=== PATIENT | female | born 1970 | race Caucasian/White ===

== ENCOUNTER 2017-07-31 22:51 | Emergency (ER) | payer SELFPAY ==
[2017-07-31 23:55] LABS: Absolute Lymphocytes (CBC) 3.3 K/uL (0.7-4.9); Absolute Monocytes 0.6 K/uL (0.1-1.3); Absolute Neutrophil 3.6 K/uL (1.8-8.0); Basophils % 0.6 % (0-1.3); Eosinophils % 1.5 % (0-4.4); Hematocrit 41.7 % (36.0-45.0); MCH 32.4 pg (27.0-35.0); MCV 94.7 fL (80-100); MPV 9.4 fL (7.6-11.3); Monocytes % 7.5 % (3.3-12.3)
[2017-08-01 00:06] LABS: Bicarbonate 28 mEq/L (21-31); Glucose Level 297 mg/dL (65-120); Lipase 34 U/L (22-51); Potassium 3.9 mEq/L (3.6-5.0); Sodium Level 134 mEq/L (135-145)
[2017-08-01 00:12] LABS: ALT/SGPT 21 IU/L (10-60); AST/SGOT 15 IU/L (10-42); Albumin 3.8 g/dL (3.2-5.5); Alkaline Phosphatase 86 IU/L (42-121); Amylase Level 62 U/L (28-100); BUN Blood Urea Nitrogen 10 mg/dL (6-20); Bilirubin Direct 0.1 mg/dL (0-0.2); Bilirubin Total 0.5 mg/dL (0.3-1.2); Protein, Total 6.8 g/dL (6.0-8.3)
--- NOTE | 2017-08-01 00:17 | ER ---
Nurse's Notes [facility] Name: Yessica Martinez Age: 46 yrs Sex: Female : 1970 Arrival Date: 07/31/2017 Time: 22:55 Bed 25 Private MD: Diagnosis: Elevated blood glucose level Presentation: 07/31 23:15 Presenting complaint: Patient states: she is not feeling well checked her BGL and it bb was over 500 drank some water and it went down but felt off balance and tired with some numbness in left hand. Transition of care: patient was not received from another setting of care. Onset of symptoms was July 31, 2017. Care prior to arrival: None. 23:15 Method Of Arrival: Ambulatory bb 23:15 Acuity: BECCA 3 bb Triage Assessment: 23:30 General: Appears in no apparent distress. well nourished, Behavior is calm, cooperative.rk2 23:30 Pain:. Neuro: Level of Consciousness is alert, obeys commands, Oriented to. rk2 Respiratory: Airway is patent Respiratory effort is even, unlabored, Respiratory pattern is regular, symmetrical. Derm: Skin is pink, warm \T\ dry. 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 - Social history:: Smoking status: Patient uses tobacco products, smokes one pack cigarettes per day. Patient/guardian denies using alcohol, street drugs. - Family history:: not pertinent. Screenin:30 Abuse screen: Denies threats or abuse. rk2 23:30 Nutritional screening: No deficits noted. Tuberculosis screening: No symptoms or risk rk2 factors identified. Fall Risk None identified. Vital Signs: 23:18 BP 124 / 79; Pulse 84; Resp 18 S; Temp 98.4(O); Pulse Ox 97% on R/A; Weight 86.64 kg bb (R); Height 5 ft. 3 in. (160.02 cm) (R); Pain 0/10; 23:45 BP 110 / 95; Pulse 68; Resp 17; Pulse Ox 97% on R/A; rk2 08/01 00:39 BP 128 / 83; Pulse 62; Resp 17; Pulse Ox 98% on R/A; rk2 07/31 23:18 Body Mass Index 33.83 (86.64 kg, 160.02 cm) ED Course: 07/31 22:55 Patient arrived in ED. am2 23:00 Abhijit Diaz MD is Attending Physician. mi2 23:16 Triage completed. bb 23:18 Arm band placed on Patient placed in an exam room, on a stretcher, on pulse oximetry. bb Family accompanied patient. 23:21 Carlota Garcia, RN is Primary Nurse. rk2 23:30 Patient has correct armband on for positive identification. Bed in low position. Call rk2 light in reach. 23:43 Amylase, Serum Sent. rk2 08/01 00:40 No provider procedures requiring assistance completed. IV discontinued. rk2 Administered Medications: 00:30 Drug: Insulin Regular Human 4 units {Co-Signature: lp1 (Sarah Marie RN).} Route: IVP; rk2 Site: left antecubital; 00:39 Follow up: given \T\ DC rk2 Intake: Outcome: 00:16 Discharge ordered by . ma2 00:40 Discharged to home ambulatory. rk2 00:40 Condition: good 00:40 Discharge instructions given to patient. 00:41 Patient left the ED. rk2 Signatures: Sylvia Boo, RN RN Isabel Sánchez Mohammad, MD MD ma2 Kidder, Rhonda, RN RN rk2 Sarah Marie RN lp1
--- NOTE | 2017-08-01 00:17 | EDPHYS ---
Physician Documentation [facility] Name: Yessica Martinez Age: 46 yrs Sex: Female : 1970 Arrival Date: 07/31/2017 Time: 22:55 Bed 25 Private MD: ED Physician Abhijit Diaz HPI: 07/31 23:31 This 46 yrs old Female presents to ER via Ambulatory with complaints of High ma2 Blood Sugar. 23:31 Onset: The symptoms/episode began/occurred gradually, 1 day(s) ago. Associated signs ma2 and symptoms: Pertinent positives: nausea, Pertinent negatives: constipation, decreased urine output, diarrhea, dry skin, ketones in urine, polyuria, seizure activity, vomiting. Current symptoms: In the emergency department the patient's symptoms have improved. The patient has experienced similar episodes in the past. here with elevated BS on metformin . 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 - Social history:: Smoking status: Patient uses tobacco products, smokes one pack cigarettes per day. Patient/guardian denies using alcohol, street drugs. - Family history:: not pertinent. ROS: 23:31 Constitutional: Negative for fever, chills, and weight loss, Eyes: Negative for injury, ma2 pain, redness, and discharge, ENT: Negative for injury, pain, and discharge, Neck: Negative for injury, pain, and swelling, Cardiovascular: Negative for chest pain, palpitations, and edema, Respiratory: Negative for shortness of breath, cough, wheezing, and pleuritic chest pain, Abdomen/GI: Negative for abdominal pain, nausea, diarrhea, and constipation, Back: Negative for injury and pain, : Negative for injury, bleeding, discharge, and swelling, MS/Extremity: Negative for injury and deformity, Skin: Negative for injury, rash, and discoloration, Neuro: Negative for headache, weakness, numbness, tingling, and seizure, Psych: Negative for depression, anxiety, suicide ideation, homicidal ideation, and hallucinations, Allergy/Immunology: Negative for hives, rash, and allergies, Endocrine: Negative for neck swelling, polydipsia, polyuria, polyphagia, and marked weight changes. Exam: 23:31 Constitutional: This is a well developed, well nourished patient who is awake, alert, ma2 and in no acute distress. Head/Face: Normocephalic, atraumatic. Chest/axilla: Normal chest wall appearance and motion. Nontender with no deformity. No lesions are appreciated. Cardiovascular: Regular rate and rhythm with a normal S1 and S2. No gallops, murmurs, or rubs. Normal PMI, no JVD. No pulse deficits. Respiratory: Lungs have equal breath sounds bilaterally, clear to auscultation and percussion. No rales, rhonchi or wheezes noted. No increased work of breathing, no retractions or nasal flaring. Abdomen/GI: Soft, non-tender, with normal bowel sounds. No distension or tympany. No guarding or rebound. No evidence of tenderness throughout. Neuro: Awake and alert, GCS 15, oriented to person, place, time, and situation. Cranial nerves II-XII grossly intact. Motor strength 5/5 in all extremities. Sensory grossly intact. Cerebellar exam normal. Normal gait. Vital Signs: 23:18 BP 124 / 79; Pulse 84; Resp 18 S; Temp 98.4(O); Pulse Ox 97% on R/A; Weight 86.64 kg bb (R); Height 5 ft. 3 in. (160.02 cm) (R); Pain 0/10; 23:45 BP 110 / 95; Pulse 68; Resp 17; Pulse Ox 97% on R/A; rk2 08/01 00:39 BP 128 / 83; Pulse 62; Resp 17; Pulse Ox 98% on R/A; rk2 07/31 23:18 Body Mass Index 33.83 (86.64 kg, 160.02 cm) bb MDM: 07/31 23:00 Patient medically screened. ma2 23:31 Differential diagnosis: diabetes insipidus, DKA, gestational diabetes, hyperglycemia, ma2 hypoglycemic episode. 08/01 00:15 Data reviewed: vital signs, nurses notes. Counseling: I had a detailed discussion with malik the patient and/or guardian regarding: the historical points, exam findings, and any diagnostic results supporting the discharge/admit diagnosis, the presence of at least one elevated blood pressure reading (>120/80) during this emergency department visit, the need for outpatient follow up. 07/31 23:30 Order name: Amylase, Serum; Complete Time: 00:14 [facility] 07/31 23:30 Order name: Basic Metabolic Panel; Complete Time: 00:14 [facility] 07/31 23:30 Order name: CBC with Diff; Complete Time: 00: [facility] 07/31 23:30 Order name: Hepatic Function; Complete Time: 00:14 [facility] 07/31 23:30 Order name: Lipase; Complete Time: 00:14 [facility] Administered Medications: 00:30 Drug: Insulin Regular Human 4 units {Co-Signature: lp1 (Sarah Marie RN).} Route: IVP; rk2 Site: left antecubital; 00:39 Follow up: given \T\ DC rk2 Disposition: 08/01/17 00:16 Discharged to Home. Impression: Elevated blood glucose level. - Condition is Stable. - Discharge Instructions: Diabetes Mellitus and Food. - Prescriptions for gabapentin 100 mg Oral capsule - take 3 capsule by ORAL route 3 times per day; 30 capsule. - Medication Reconciliation Form, Thank You Letter, Antibiotic Education, Prescription Opioid Use form. - Follow up: Private Physician; When: Tomorrow; Reason: Continuance of care. - Problem is chronic. - Symptoms are unchanged. Signatures: Dispatcher [employer] Sylvia Bullard, RN RN bb Abhijit Diaz MD MD ma2 Carlota Garcia RN RN rk2 Sarah Marie RN lp1
[2017-08-01] MEDS ORDERED: INSULIN -REGULAR HUMAN 50 UNIT/0.5 ML ML ONE (00:27)
== END 2017-08-01 00:41 | disposition home or self-care (01) ==
LOC: ER 22:51
DX: E11.65 Type 2 diabetes mellitus with hyperglycemia (principal); F17.210 Nicotine dependence, cigarettes, uncomplicated
CPT/HCPCS: 36415; 80048; 80076; 82150; 83690; 85025; 96374; 99283

== ENCOUNTER 2017-08-02 09:01 | Emergency (ER) | payer SELFPAY ==
--- NOTE | 2017-08-02 10:18 | RAD REPORT ---
EXAM DESCRIPTION: CT - Ct Stroke Brain Wo Cont - 08/02/2017 10:06 am CLINICAL HISTORY: Left leg weakness CLINICAL HISTORY: None. TECHNIQUE: Axial 5 millimeter thick images of the head were obtained without IV contrast. All CT scans are performed using dose optimization technique as appropriate and may include automated exposure control or mA/KV adjustment according to patient size. FINDINGS: No intracranial hemorrhage, mass, or cerebral edema. Focal decreased attenuation is presen t near the right parieto-occipital junction. This has the appearance of and age indeterminate CVA. No significant atrophy changes. Patchy decreased attenuation in the right frontal lobe is probably cfo blessing ischemic change. No extra-axial fluid collections. Wu matter-white matter differentiation is p reserved. Ventricles are normal. Visualized portions of the mastoid air cells, paranasal sinuses, and orbits are unremarkable. Findings telephoned to Cassandra Mcdaniel 10:13 a.m.. IMPRESSION: No intracranial hemorrhage. No mass lesion identified. Focal 18 millimeter area of diminished attenuation right parieto-occipital junction consistent with a ge indeterminate CVA. There is patchy chronic ischemic change in the right frontal lobe white matter. Followup MR imaging could be performed to evaluate for acute CVA.
--- NOTE | 2017-08-02 10:31 | RAD REPORT ---
EXAM DESCRIPTION: RAD - Chest Single View - 08/02/2017 10:16 am CLINICAL HISTORY: Chest pain, shortness of breath, stroke-like symptoms COMPARISON: August 1999 TECHNIQUE: AP portable chest image was obtained 1005 hours . FINDINGS: Lungs are clear. Heart size is upper normal. No vascular engorgement. No measurable pleura l effusion and no pneumothorax. No gross bony abnormality seen. No acute aortic findings suspected. IMPRESSION: No acute lung parenchymal process seen. Cardiac silhouette is enlarged from the 1999 comparison. No vascular engorgement or other findings of acute failure.
[2017-08-02 10:41] LABS: Urine Blood NEGATIVE (NEG); Urine Glucose 2+ (NEG); Urine Protein NEGATIVE (NEG); Urine Specific Gravity 1.015 (1.005-1.030)
[2017-08-02] MEDS ORDERED: ASPIRIN 81 MG CHEWABLE TABLET ONE (10:56)
[2017-08-02 11:04] LABS: Absolute Lymphocytes (CBC) 2.6 K/uL (0.7-4.9); Absolute Monocytes 0.4 K/uL (0.1-1.3); Absolute Neutrophil 4.1 K/uL (1.8-8.0); Basophils % 0.4 % (0-1.3); Eosinophils % 1.6 % (0-4.4); Hematocrit 44.2 % (36.0-45.0); MCH 31.8 pg (27.0-35.0); MCV 94.4 fL (80-100); MPV 9.3 fL (7.6-11.3); Monocytes % 5.4 % (3.3-12.3); RBC Red Blood Cell Count 4.68 M/uL (3.86-4.86)
[2017-08-02 11:05] LABS: Urine Bacteria <20 /HPF (<20); Urine Culture Reflex Order NOT NEEDED; Urine Mucus 1+ /HPF (NONE SEEN); Urine RBC <5 /HPF (NONE SEEN)
[2017-08-02 11:11] LABS: Protime INR 0.93
[2017-08-02 11:18] LABS: Bicarbonate 28 mEq/L (21-31); Glucose Level 321 mg/dL (65-120); Potassium 4.2 mEq/L (3.6-5.0); Sodium Level 134 mEq/L (135-145)
[2017-08-02 11:19] LABS: BUN Blood Urea Nitrogen 8 mg/dL (6-20); Glomerular Filtration Rate > 90 mL/min (=/>90)
--- NOTE | 2017-08-02 12:13 | ER ---
Nurse's Notes [facility] Name: Yessica Martinez Age: 46 yrs Sex: Female : 1970 Arrival Date: 08/02/2017 Time: 09:04 Bed 3 Private MD: Diagnosis: Cerebral infarction Presentation: 08/02 09:14 Presenting complaint: Patient states: went to bed around 10 pm last night, woke up at ss approx 0530 this morning and states, "my hand was just doing it's own thing and my L leg was trying to give out on me. I just want to make sure it isn't a stroke. Pt reports symptoms have almost completely resolved other than pain to L forearm. Transition of care: patient was not received from another setting of care. Onset of symptoms is unknown. Care prior to arrival: None. 09:14 Method Of Arrival: Ambulatory ss 09:14 Acuity: BECCA 3 ss Historical: - Allergies: 09:16 No Known Allergies; ss - Home Meds: 09:16 atorvastatin 20 mg Oral tab 1 tab once daily [Active]; gabapentin 100 mg Oral cap twice ss a day [Active]; glyburide 2.5 mg Oral tab 1 tab 2 times per day [Active]; metformin 500 mg Oral tab 1 tab 2 times per day [Active]; - PMHx: 09:16 Diabetes - NIDDM; ss - PSHx: 09:16 ; ss - Immunization history:: Adult Immunizations up to date. - Social history:: Smoking status: Patient uses tobacco products, smokes one pack cigarettes per day. Screenin:00 The patient has not been NPO before screening. The patient is currently on the jl7 following diet: regular The patient is alert, able to follow commands. The patient does not exhibit slurred or garbled speech The patient is not exhibiting difficulty speaking. The patient does not exhibit difficulty understanding words. The patient is able to swallow own secretions with no drooling or need for suction. Patient tolerated one teaspoon of water. No drooling, immediate coughing, gurgling, or clearing of the throat was noted. The patient tolerated 90mL of water. No drooling, immediate coughing, gurgling, or clearing of the throat was noted. The patient passed the bedside swallow screening. Oral medications may be given as ordered. Contact Physician for further diet orders. Provider notified of bedside swallow screening results: Cassandra Mcdaniel NP. 11:04 Abuse screen: Denies threats or abuse. Denies injuries from another. Nutritional jl7 screening: No deficits noted. Tuberculosis screening: No symptoms or risk factors identified. Fall Risk IV access (20 points). Total Wilson Fall Scale indicates No Risk (0-24 pts). Assessment: 10:00 General: Appears in no apparent distress. uncomfortable, Behavior is calm, cooperative, jl7 appropriate for age. Pain: Denies pain. 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 Gait is steady, Speech is normal, Facial symmetry appears normal, Pupils are PERRLA. Cardiovascular: Patient's skin is warm and dry. Respiratory: Airway is patent Respiratory effort is even, unlabored, Respiratory pattern is regular, symmetrical. GI: No signs and/or symptoms were reported involving the gastrointestinal system. : No signs and/or symptoms were reported regarding the genitourinary system. EENT: No signs and/or symptoms were reported regarding the EENT system. Derm: Skin is pink, warm \\T\\ dry. Musculoskeletal: No signs and/or symptoms reported regarding the musculoskeletal system. 11:00 Reassessment: No changes from previously documented assessment. Patient and/or family jl7 updated on plan of care and expected duration. Pain level reassessed. Patient is alert, oriented x 3, equal unlabored respirations, skin warm/dry/pink. 12:00 Reassessment: Patient and/or family updated on plan of care and expected duration. Pain jl7 level reassessed. Patient is alert, oriented x 3, equal unlabored respirations, skin warm/dry/pink. 13:20 Reassessment: Ok per provider to order diet tray. Dietary notified via telephone. ae1 14:38 Reassessment: pt c/o of BRAMBILA, rated 9/10. Provider notified, see MAR for orders. jl7 15:30 Reassessment: Patient and/or family updated on plan of care and expected duration. Pain jl7 level reassessed. Patient is alert, oriented x 3, equal unlabored respirations, skin warm/dry/pink. Patient states feeling better. Vital Signs: 09:16 BP 152 / 86; Pulse 63; Resp 15; Temp 97.4; Pulse Ox 98% on R/A; Weight 86.64 kg; Height ss 5 ft. 3 in. (160.02 cm); Pain 0/10; 10:37 BP 121 / 83; Pulse 59; Resp 17; Pulse Ox 96% on R/A; ae1 11:04 BP 122 / 86; Pulse 55; Resp 16 S; Pulse Ox 98% on R/A; jl7 12:00 BP 141 / 90; Pulse 68; Resp 16 S; Pulse Ox 98% on R/A; jl7 13:00 BP 104 / 68; Pulse 54; Resp 19 S; Pulse Ox 97% on R/A; jl7 13:56 BP 118 / 78; Pulse 56; Resp 18 S; Pulse Ox 95% on R/A; jl7 15:00 BP 101 / 68; Pulse 60; Resp 18 S; Pulse Ox 96% on R/A; jl7 09:16 Body Mass Index 33.83 (86.64 kg, 160.02 cm) ss NIH Stroke Scale Scores: 10:00 NIHSS Score: 0 jl7 ED Course: 09:04 Patient arrived in ED. tw3 09:15 Initial lab(s) drawn, by me, sent to lab. Inserted saline lock: 22 gauge in right hj forearm, using aseptic technique. Blood collected. 09:16 Triage completed. ss 09:16 Arm band placed on right wrist. ss 09:23 Tian Godinez, LATRICIA is Primary Nurse. hj 09:41 Cassandra Mcdaniel NP is PHCP. rh1 09:41 Zheng Evangelista MD is Attending Physician. rh1 09:46 Primary Nurse role handed off by Tian Godinez RN jl7 09:46 Emmett Jose RN is Primary Nurse. jl7 10:06 CT Stroke Brain w/o Contrast In Process Unspecified. EDMS 10:13 X-ray completed. Portable x-ray completed in exam room. ap2 10:15 Stroke CXR 1 View In Process Unspecified. EDMS 11:04 Patient has correct armband on for positive identification. Placed in gown. Bed in low jl7 position. Call light in reach. Side rails up X2. surveillance system monitor on. Pulse ox on. NIBP on. Warm blanket given. 11:04 Lab(s) recollected, by me, sent to lab. Urine collected: clean catch specimen, clear. jl7 14:30 transfer transportation to receiving facility. Awaiting transportation. jl7 16:14 No provider procedures requiring assistance completed. Patient transferred, IV remains jl7 in place. Administered Medications: 11:02 Drug: Aspirin Chewable Tablet 324 mg Route: PO; jl7 14:25 Follow up: Response: No adverse reaction jl7 12:40 Drug: Insulin Regular Human 8 units {Co-Signature: ae1 (Quoc Yao RN).} Route: jl7 Sub-Q; Site: right upper arm; 13:55 Follow up: Response: Blood sugar is lowered jl7 14:40 Drug: Tylenol 1000 mg Route: PO; jl7 15:45 Follow up: Response: No adverse reaction; Pain is decreased jl7 Point of Care Testing: Blood Glucose: 10:15 Blood Glucose: 308 mg/dL; jl7 13:56 Blood Glucose: 226 mg/dL; jl7 Ranges: Outcome: 12:12 ER care complete, transfer ordered by . [facility] 16:12 Transferred by ground EMS to [facility], Transfer form completed. jl7 16:12 Condition: stable 16:12 Discharge instructions given to patient, family, Instructed on the need for transfer, Demonstrated understanding of instructions, follow-up care. 16:14 Patient left the ED. jl7 NIH Stroke Scale - NIH Stroke Score Date: 08/02/2017 Time: 10:00 Total Score = 0 1a. Level of Consciousness (LOC) - 0(Alert) 1b. Level of Consciousness (LOC) (Year \\T\\ Age) - 0(Both) 1c. LOC Commands (Open \\T\\ Closes Eyes/Small Products Ii Assembler) - 0(Both) 2. Best Gaze (Lateral Gaze Paresis) - 0(Normal) 3. Visual Field Loss - 0(No visual loss) 4. Facial Palsy - 0(Normal) 5a. Left Arm: Motor (10-second hold) - 0(No drift) 5b. Right Arm: Motor (10-second hold) - 0(No drift) 6a. Left Leg: Motor (5-second hold - always test supine) - 0(No drift) 6b. Right Leg: Motor (5-second hold - always test supine) - 0(No drift) 7. Limb Ataxia (finger/nose \\T\\ heel/valencia - test with eyes open) - 0(Absent) 8. Sensory Loss (pinprick arms/legs/face) - 0(Normal) 9. Best Language: Aphasia (description/naming/reading) - 0(No aphasia) 10. Dysarthria (speech clarity - read or repeat words) - 0(Normal) 11. Extinction and Inattention (visual/tactile/auditory/spatial/personal) - 0(No abnormality) Initials: [email or web address] Signatures: Dispatcher [employer] EDMS Jaylyn Mena RN RN Cassandra Ty, FIBER DESIGN ENGINEER FIBER DESIGN ENGINEER rh1 Tian Godinez, RN Quoc Velez RN RN ae1 Emmett Jose RN RN jl7 Shae Posadas 3 Nancy Marie RN ae1
--- NOTE | 2017-08-02 12:13 | EDPHYS ---
Physician Documentation [facility] Name: Yessica Martinez Age: 46 yrs Sex: Female : 1970 Arrival Date: 08/02/2017 Time: 09:04 Bed 3 Private MD: ED Physician Zheng Evangelista HPI: 08/02 09:41 This 46 yrs old Female presents to ER via Ambulatory with complaints of left rh1 arm movement, left leg heavy. 09:41 left arm moving independently, left left heavy. Onset: The symptoms/episode rh1 began/occurred this morning, at 05:30. Severity of symptoms: At their worst the symptoms were moderate in the emergency department the symptoms have resolved. The patient has not experienced similar symptoms in the past. The patient has been recently seen by a physician:. Pt. reports she was awoke this am by her left hand hitting her in the face, and it continued to "move by itself" for < 1 min. She attempted to get up and go to the bathroom, and her left leg "just fell over, like it wasn't there" described as feeling heavy, lasting for > 1 min. She was able to the get up and go to the bathroom. She has frontal BRAMBILA that began gradually throughout the morning today. She reports family hx of CVA, and was concerned that was the cause of her symptoms today. She denies any weakness, paresthesias, vision changes, speech changes at this time.. Historical: - Allergies: 09:16 No Known Allergies; ss - Home Meds: 09:16 atorvastatin 20 mg Oral tab 1 tab once daily [Active]; gabapentin 100 mg Oral cap twice ss a day [Active]; glyburide 2.5 mg Oral tab 1 tab 2 times per day [Active]; metformin 500 mg Oral tab 1 tab 2 times per day [Active]; - PMHx: 09:16 Diabetes - NIDDM; ss - PSHx: 09:16 ; ss - Immunization history:: Adult Immunizations up to date. - Social history:: Smoking status: Patient uses tobacco products, smokes one pack cigarettes per day. ROS: 09:41 Constitutional: Negative for fever, chills rh1 09:41 Eyes: Negative for acute changes, blurry vision, vision loss, visual disturbance. 09:41 ENT: Negative for difficulty swallowing, difficulty handling secretions, hoarseness. 09:41 Cardiovascular: Negative for chest pain, edema, palpitations. 09:41 Respiratory: Negative for cough, dyspnea on exertion, shortness of breath, wheezing. 09:41 Abdomen/GI: Negative for abdominal pain, nausea and vomiting. 09:41 Back: Negative for decreased range of motion, pain at rest, pain with movement, radiated pain. 09:41 : Negative for urinary symptoms, small amounts. 09:41 MS/extremity: Positive for decreased range of motion, Negative for deformity, pain, paresthesias, swelling, tenderness. 09:41 Skin: Negative for diaphoresis, rash. 09:41 Neuro: Positive for headache, seizure activity, weakness, Negative for altered mental status, dizziness, syncope, near syncope. Exam: 09:41 Constitutional: This is a well developed, well nourished patient who is awake, alert, rh1 and in no acute distress. Head/Face: Normocephalic, atraumatic. 09:41 ENT: Nares patent. No nasal discharge, no septal abnormalities noted. Tympanic membranes are normal and external auditory canals are clear. Oropharynx with no redness, swelling, or masses, exudates, or evidence of obstruction, uvula midline. Mucous membranes moist. Neck: Trachea midline, and no cervical lymphadenopathy. Supple, full range of motion without nuchal rigidity. No Meningismus. Chest/axilla: Normal chest wall appearance and motion. Nontender with no deformity. No lesions are appreciated. Cardiovascular: Regular rate and rhythm with a normal S1 and S2. No gallops, murmurs, or rubs. No JVD. No pulse deficits. Respiratory: Lungs have equal breath sounds bilaterally, clear to auscultation. No rales, rhonchi or wheezes noted. No increased work of breathing. Abdomen/GI: Soft, non-tender, with normal bowel sounds. No distension. No guarding or rebound. No evidence of tenderness throughout. Back: No spinal tenderness. No costovertebral tenderness. Full range of motion. Skin: Warm, dry with normal turgor. Normal color with no rashes, no lesions, and no evidence of cellulitis. MS/ Extremity: Pulses equal, no cyanosis. Neurovascular intact. Full, normal range of motion. 09:41 Eyes: Pupils: no acute changes, normal size, normal reaction to light, equal, right pupil is approximately 3 mm(s), left pupil is approximately 3 mm(s), Extraocular movements: intact throughout, Nystagmus: is not appreciated. 09:41 Neuro: Orientation: is normal, to person, place \\T\\ time. Mentation: is normal, lucid, able to follow commands, Cranial nerves: visual mckenzie are intact. extraocular movements are intact, Facial palsy and sensory deficits are absent. no gross hearing deficit,. Nystagmus is absent. Speech is clear and appropriate. Gag reflex present. Tongue strength is normal, deviation is absent. Cerebellar function: normal finger to nose testing, heel to valencia testing is normal, Motor: is normal, moves all fours, strength is 5/5 in all extremities, Sensation: is normal, no obvious gross deficits, numbness, is not appreciated, tingling, is not appreciated, Gait: is steady, at a normal pace, without difficulty, seizure activity, is not displayed by the patient. Vital Signs: 09:16 BP 152 / 86; Pulse 63; Resp 15; Temp 97.4; Pulse Ox 98% on R/A; Weight 86.64 kg; Height ss 5 ft. 3 in. (160.02 cm); Pain 0/10; 10:37 BP 121 / 83; Pulse 59; Resp 17; Pulse Ox 96% on R/A; ae1 11:04 BP 122 / 86; Pulse 55; Resp 16 S; Pulse Ox 98% on R/A; jl7 12:00 BP 141 / 90; Pulse 68; Resp 16 S; Pulse Ox 98% on R/A; jl7 13:00 BP 104 / 68; Pulse 54; Resp 19 S; Pulse Ox 97% on R/A; jl7 13:56 BP 118 / 78; Pulse 56; Resp 18 S; Pulse Ox 95% on R/A; jl7 15:00 BP 101 / 68; Pulse 60; Resp 18 S; Pulse Ox 96% on R/A; jl7 09:16 Body Mass Index 33.83 (86.64 kg, 160.02 cm) NIH Stroke Scale Scores: 10:00 NIHSS Score: 0 jl7 MDM: 09:41 Patient medically screened. rh1 11:34 Awaiting: transfer to another facility. rh1 11:35 Data reviewed: vital signs, nurses notes, lab test result(s), EKG, radiologic studies, rh1 CT scan, plain films, and as a result, I will admit patient. Data interpreted: Pulse oximetry: on room air is 98 %. Interpretation: normal. Counseling: I had a detailed discussion with the patient and/or guardian regarding: the historical points, exam findings, and any diagnostic results supporting the discharge/admit diagnosis, lab results, radiology results, the need for further work-up and treatment in the hospital, the need to transfer to another facility, [facility] does not immediately have the required specialist. 12:03 Physician consultation: Md Serra was contacted at 12:03, regarding admission, rh1 regarding transfer, consult, patient's condition, accepts pt., pending discussion with internal medicine. 12:10 Physician consultation: was contacted at 12:11, regarding admission, regarding rh1 transfer, consult, patient's condition. 08/02 09:54 Order name: Basic Metabolic Panel; Complete Time: 11:25 rh08/02 09:54 Order name: CBC with Diff; Complete Time: 11:08 rh08/02 09:54 Order name: Protime (+inr); Complete Time: 11:16 rh08/02 09:54 Order name: Ptt, Activated; Complete Time: 11:16 rh08/02 09:54 Order name: Urine Microscopic Only; Complete Time: 11:08 08/02 10:31 Order name: Urine Dipstick--Ancillary (enter results); Complete Time: 10:43 ag 08/02 09:54 Order name: CT Stroke Brain w/o Contrast; Complete Time: 10:23 rh08/02 09:54 Order name: Stroke CXR 1 View; Complete Time: 10:39 rh08/02 09:54 Order name: EKG; Complete Time: 09:54 rh08/02 09:54 Order name: Accucheck; Complete Time: 10:15 rh08/02 13:10 Order name: Diet Heart Healthy; Complete Time: 13:11 ae08/02 09:54 Order name: Cardiac monitoring; Complete Time: 09:56 08/02 09:54 Order name: EKG - Nurse/Tech; Complete Time: 10:15 rh08/02 09:54 Order name: IV Saline Lock; Complete Time: 09:55 rh08/02 09:54 Order name: Labs collected and sent; Complete Time: 09:55 08/02 09:54 Order name: NPO; Complete Time: 09:08/02 09:54 Order name: O2 Per Protocol; Complete Time: 09:08/02 09:54 Order name: O2 Sat Monitoring; Complete Time: 09:54 08/02 09:54 Order name: Stroke Swallow Screen; Complete Time: 09:54 08/02 09:54 Order name: Urine Dipstick-Ancillary (obtain specimen); Complete Time: 10:28 08/02 10:26 Order name: Labs - recollect needed; Complete Time: 11:02 ag Administered Medications: 11:02 Drug: Aspirin Chewable Tablet 324 mg Route: PO; jl7 14:25 Follow up: Response: No adverse reaction jl7 12:40 Drug: Insulin Regular Human 8 units {Co-Signature: ae1 (Quoc Yao RN).} Route: jl7 Sub-Q; Site: right upper arm; 13:55 Follow up: Response: Blood sugar is lowered jl7 14:40 Drug: Tylenol 1000 mg Route: PO; jl7 15:45 Follow up: Response: No adverse reaction; Pain is decreased jl7 Point of Care Testing: Blood Glucose: 10:15 Blood Glucose: 308 mg/dL; jl7 13:56 Blood Glucose: 226 mg/dL; jl7 Ranges: Critical Glucose Levels:Adult <50 mg/dl or >400 mg/dl <40 mg/dl or >180 mg/dl Disposition: 16:26 Co-signature as Attending Physician, Zheng Evangelista MD I agree with the assessment and kdr plan of care. Disposition: 08/02/17 12:[address] [facility]. Diagnosis is Cerebral infarction. - Reason for transfer: Specialty. - Accepting physician is Dr. Hernandez. - Condition is Stable. - Problem is new. - Symptoms are resolved. NIH Stroke Scale - NIH Stroke Score Date: 08/02/2017 Time: 10:00 Total Score = 0 1a. Level of Consciousness (LOC) - 0(Alert) 1b. Level of Consciousness (LOC) (Year \\T\\ Age) - 0(Both) 1c. LOC Commands (Open \\T\\ Closes Eyes/Manager Asset) - 0(Both) 2. Best Gaze (Lateral Gaze Paresis) - 0(Normal) 3. Visual Field Loss - 0(No visual loss) 4. Facial Palsy - 0(Normal) 5a. Left Arm: Motor (10-second hold) - 0(No drift) 5b. Right Arm: Motor (10-second hold) - 0(No drift) 6a. Left Leg: Motor (5-second hold - always test supine) - 0(No drift) 6b. Right Leg: Motor (5-second hold - always test supine) - 0(No drift) 7. Limb Ataxia (finger/nose \\T\\ heel/valencia - test with eyes open) - 0(Absent) 8. Sensory Loss (pinprick arms/legs/face) - 0(Normal) 9. Best Language: Aphasia (description/naming/reading) - 0(No aphasia) 10. Dysarthria (speech clarity - read or repeat words) - 0(Normal) 11. Extinction and Inattention (visual/tactile/auditory/spatial/personal) - 0(No abnormality) Initials: jl7 Signatures: Dispatcher [employer] EDMS Zheng Evangelista MD MD [facility] Jaylyn Mena RN RN ss Huseyin, Cassandra Meeks, APPLIQUE CUTTER APPLIQUE CUTTER rh1 Emmett Jose RN RN jl7 Quoc Yao RN ae1 Corrections: (The following items were deleted from the chart) 10:46 09:41 Pt. reports she was awoke this am by her left hand hitting her in the rh1 face, and it continued to "move by itself" for < 1 min. She attempted to get up and go to the bathroom, and her left leg "just fell over, like it wasn't there" described as feeling heavy, lasting for > 1 min. She was able to the get up and go to the bathroom. She has frontal BRAMBILA that began gradually throughout the morning today. She reports family hx of CVA, and was concerned that was the cause of her symptoms today.. rh1
[2017-08-02] MEDS ORDERED: INSULIN -REGULAR HUMAN 50 UNIT/0.5 ML ML ONE (12:36)
[2017-08-02] MEDS ORDERED: ACETAMINOPHEN 500 MG TAB ONE (14:37)
--- NOTE | 2017-08-02 22:31 | EKG ---
Test Date: 2017-08-02 Test Time: 10:19:29 Tax Associate: KAMALJIT MEASUREMENT RESULTS: Intervals: Rate: 48 SD: 144 QRSD: 92 QT: 462 QTc: 412 [place]: P: 39 SD: 144 QRS: 50 T: 52 INTERPRETIVE STATEMENTS: Sinus bradycardia Otherwise normal ECG Compared to ECG 10/08/2007 19:48:24 No significant changes Electronically Signed On 08-02-17 22:30:23 CDT by Mendoza Tenorio
== END 2017-08-02 16:14 | disposition short-term general hospital (02) ==
LOC: ER 09:01
DX: I63.9 Cerebral infarction, unspecified (principal); R29.700 NIHSS score 0; R51 Headache; E11.9 Type 2 diabetes mellitus without complications; F17.210 Nicotine dependence, cigarettes, uncomplicated
CPT/HCPCS: 36415; 70450; 71045; 80048; 81003; 81015; 82962; 85025; 85610; 85730; 93005; 96372; 99285

== ENCOUNTER 2017-09-27 10:37 | Emergency (ER) | payer SELFPAY ==
--- OUTSIDE RECORDS SUMMARY | 2017-09-27 10:39 | XMS REPORT | Clinical Summary ---
:1970 Author Organization [facility] Address [address] [place] [address] Phone Care Team Providers Name Role Phone Unavailable Primary Care Provider Unavailable Allergies No Known Allergies Current Medications Prescription Sig. Disp. Refills Start Date End Date Status metFORMIN Take 500 mg by Active (GLUCOPHAGE) 500 mouth 2 (two) times MG tablet daily with breakfast and dinner. gabapentin Take 100 mg by Active (NEURONTIN) 100 mouth 2 (two) times MG capsule daily. aspirin 81 MG EC Take 1 tablet (81 30 tablet 1 08/06/2017 08/07/19 Active tablet mg total) by mouth 19 daily. glyBURIDE Take 2 tablets (5 60 tablet 0 08/05/2017 Active (DIABETA) 2.5 MG mg total) by mouth tablet daily. insulin Use as instructed.. 100 each 0 08/05/2017 Active syringe-needle U-100 Syrg atorvastatin Take 1 tablet (80 30 tablet 1 08/05/2017 Active (LIPITOR) 80 MG mg total) by mouth tablet daily. insulin NPH Inject 12 Units 10 mL 0 08/05/2017 Active (HUMULIN subcutaneously N,NOVOLIN N) 100 every morning Use unit/mL injection as directed. atorvastatin Take 20 mg by mouth 08/06/19 Discontinued (LIPITOR) 20 MG daily. 18 tablet glyBURIDE Take 2.5 mg by 08/06/19 Discontinued (DIABETA) 2.5 MG mouth 2 (two) times 18 tablet daily before meals. insulin NPH Use as directed. 10 mL 0 08/05/2017 08/06/19 Discontinued (HUMULIN 18 N,NOVOLIN N) 100 unit/mL injection Active Problems Problem Noted Date Uncontrolled type 2 diabetes mellitus (HCC) 08/03/2017 Thrombocytopenia (HCC) 08/03/2017 Carotid stenosis, bilateral 08/03/2017 Acute CVA (cerebrovascular accident) (HCC) 08/02/2017 Tobacco abuse 08/02/2017 Hyperlipidemia 08/02/2017 Abnormal involuntary movement 08/02/2017 Encounters Date Type Specialty Care Team Description 08/02/2017 - Hospital Encounter General Internal Dave Edwards, Left- sided 08/05/2017 Medicine weakness;Abnormal Rosy Patten involuntary MD Kyler movement;Tobacco abuse;Acute CVA (cerebrovascular accident) (HCC);Thrombocytope theresa (HCC);Uncontrolled type 2 diabetes mellitus with complication, without long-term current use of insulin (HCC);Diabetes mellitus with insulin therapy (HCC) after 09/26/2016 Family History Medical History Relation Name Comments Diabetes Father Stroke Father Relation Name Status Comments Father Social History Tobacco Use Types Packs/Day Years Used Date Current Every Day Smoker 1 Smokeless Tobacco: Never Used Alcohol Use Drinks/Week oz/Week Comments No Sex Assigned at Date Recorded Not on file Last Filed Vital Signs Vital Sign Reading Time Taken Blood Pressure 113/79 08/05/2017 12:25 PM CDT Pulse 76 08/05/2017 12:25 PM CDT Temperature 36.7 C (98 F) 08/05/2017 12:25 PM CDT Respiratory Rate 20 08/05/2017 12:25 PM CDT Oxygen Saturation 96% 08/05/2017 12:25 PM CDT Inhaled Oxygen Concentration - - Weight 86.6 kg (191 lb) 08/05/2017 6:00 AM CDT Height 160 cm (5' 3") 08/03/2017 6:00 AM CDT Body Mass Index 33.83 08/05/2017 6:00 AM CDT Plan of Treatment Not on file Results EKG-SCANNED (08/06/2017 10:12 AM)RHYTHM STRIP - SCAN (08/06/2017 10:12 AM)POC- Glucose meter (08/05/2017 12:48 PM)Only the most recent of12 resultswithin the time period is included. Component Value Ref Range POC-Glucose Meter 303 (H)Comment: TESTED AT [address] 70 - 110 mg[place] [id number] Specimen Performing Laboratory Blood [facility] [address] [place] [address] ECHOCARDIOGRAM REPORT - SCAN (08/05/2017 11:21 AM)2D Echo W/Doppler(CW/PW/Color ) (08/04/2017 7:23 PM) Component Value Ref Range Ejection Fraction Specimen Performing Laboratory SLE ECHO HEARTLAB MKCKESSON CPACS Narrative Transthoracic Echocardiography Report (TTE) Demographics Patient Name Agatha MARTINEZ of Study 08/04/2017 STAN [id number] GenderFemale Visit Number [id number] Hardy [id number] Number [id number] Number Date of Birth1970 Referring Physician RAE PATTEN Age46 year(s) Security And Privacy Consultant Angella RiverasInterprecorey Hicks MD Procedure Type of Study TTE procedure:2DECHO W DOPPLER(CW/PW/COLOR) (Pending Discharge) Indications:Suspected cardiac source of emboli. Clinical History SMOKER HLD DM Contrast Medium: Bubble Study. Height: 63 inches Weight: 86.64 kg (191 lbs) BSA: 1.9 m^2 BMI: 33.83 kg/m^2 HR: 94 bpm BP: 133/80 mmHg Summary 1. Septal motion is abnormal, likely related to conduction abnormality . The other segments contract normally. LVEF by Scott's method of disk assessment is normal (55-60%) . 2. Grade 1 diastolic dysfunction (impaired relaxation and low-normal LA pressure). 3. IV saline contrast injection was negative for a PFO (patent foramen ovale) at rest and post Valsalva . Previous Study No prior studies available for comparison. Signature Findings Left Ventricle The LV endocardium is well visualized. The left ventricle is chamber size (by vol index) is small. No evidence of LV hypertrophy. Septal motion is abnormal, likely related to conduction abnormality . The other segments contract normally. Global LV systolic function normal . LVEF by Scott's method of disk assessment is normal (55-60%) . Grade 1 diastolic dysfunction (impaired relaxation and low-normal LA pressure). Left AtriumLA size is normal (16-34 ml/m2) . Right VentricleThe right ventricular chamber size and systolic function are within normal limits. Right Atrium RA size is normal. Atrial SeptumIV saline contrast injection was negative for a PFO (patent foramen ovale) at rest and post Valsalva . Lipomatous hypertrophy of the interatrial septum is present. Aortic Valve Normal AoV structure and function. Mitral Valve Normal MV structure and function. Tricuspid ValveNormal TV structure and function. Unable to estimate peak systolic PA pressure; inadequate TR velocity signal. Pulmonic Valve Normal PV structure and function. PCPW: 15.47 mm Hg AortaAortic root size (SInus of Valsalva diameter) is normal . Proximal ascending aorta size is normal . PericardiumA trivial pericardial effusion is present An echo lucent space is noted consistent with prominent pericardial fat pad. IVC/SVC/PA/PV/PleuralThe inferior vena cava is not visualized. The estimated RA pressure by IVC dynamics indeterminate . Chambers/Structures Left Atrium LA Dimension: 3.37 cmLA Area: 15.69 cm^2 LA Volume: 19.57 ml LA Vol. Index: 10 ml/m^2 Left Ventricle LVIDd: 4.29 cm LVIDs: 2.71 cm LV Septum Diastolic: 0.98 cm LV PW Diastolic: 1.09 cmLV FS: 36.8 % LVEDV Scott's:50.85 mlLV IVRT: 125.1 msec LVESV Scott's:21.84 mlLVEDVI: 27 ml/m^2 LVEF Scott's: 57 %LVESVI: 11 ml/ m^2 LVOT Diameter: 1.99 cm Right Atrium RA Vol. (Sngl Plane): 31.82 ml Right Ventricle RV Diast Dim.: 3.4 cm RV Area Systolic: 10.45 cm^2 RV Area Diastolic: 18.74 cm^2 TAPSE: 2.51 cm Aorta Ao Root S of Kenzie.: 3.34 cmAscending Aorta: 3.01 cm Doppler/Quantitative Measurements Mitral Valve MV Peak E-Wave: 0.75 m/sMV Peak A-Wave: 0.84 m/s E/ A Ratio: 0.89 Peak Gradient: 2.27 mmHg Deceleration Time: 175.1 msec MV Gopi. Peak: Tissue Doppler E' Lateral Velocity: 0.07 m/s E/E': 10.95 LVOT Peak Velocity: 1.24 m/s Peak Gradient: 6.17 mmHg Mean Velocity: 0.85 m/s Mean Gradient: 3.36 mmHg LVOT Diameter: 1.99 cmLVOT VTI: 20.35 cm LVOT Area: 3.11 cm^2LVOT SV:63.26 ml LVOT CO: 5.95 l/min LVOT CI: 3.13 l/min/m^2 RVOT RVOT VTI (PW): 17.01 cm Procedure Note Interface, External Ris In - 08/05/2017 10:52 AM CDT Transthoracic Echocardiography Report (TTE) Demographics Patient Name YESSICA MARTINEZ Date of Study 08/04/2017 STAN Gender Female Visit Number [id number] Race Unknown Room Number 2254 Number Date of 1970 Referring Physician RAE PATTEN Age 46 year(s) Security And Privacy Consultant Geography Teacher Bhumika Hicks MD Procedure Type of Study TTE procedure:2DECHO W DOPPLER(CW/PW/COLOR) (Pending Discharge) Indications:Suspected cardiac source of emboli. Clinical History SMOKER HLD DM Contrast Medium: Bubble Study. Height: 63 inches Weight: 86.64 kg (191 lbs) BSA: 1.9 m^2 BMI: 33.83 kg/m^2 HR: 94 bpm BP: 133/80 mmHg Summary 1. Septal motion is abnormal, likely related to conduction abnormality . The other segments contract normally. LVEF by Scott's method of disk assessment is normal (55-60%) . 2. Grade 1 diastolic dysfunction (impaired relaxation and low-normal LA pressure). 3. IV saline contrast injection was negative for a PFO (patent foramen ovale) at rest and post Valsalva . Previous Study No prior studies available for comparison. Signature Findings Left Ventricle The LV endocardium is well visualized. The left ventricle is chamber size (by vol index) is small. No evidence of LV hypertrophy. Septal motion is abnormal, likely related to conduction abnormality . The other segments contract normally. Global LV systolic function normal . LVEF by Scott's method of disk assessment is normal (55-60%) . Grade 1 diastolic dysfunction (impaired relaxation and low-normal LA pressure). Left Atrium LA size is normal (16-34 ml/m2) . Right Ventricle The right ventricular chamber size and systolic function are within normal limits. Right Atrium RA size is normal. Atrial Septum IV saline contrast injection was negative for a PFO (patent foramen ovale) at rest and post Valsalva . Lipomatous hypertrophy of the interatrial septum is present. Aortic Valve Normal AoV structure and function. Mitral Valve Normal MV structure and function. Tricuspid Valve Normal TV structure and function. Unable to estimate peak systolic PA pressure; inadequate TR velocity signal. Pulmonic Valve Normal PV structure and function. PCPW: 15.47 mm Hg Aorta Aortic root size (SInus of Valsalva diameter) is normal . Proximal ascending aorta size is normal . Pericardium A trivial pericardial effusion is present An echo lucent space is noted consistent with prominent pericardial fat pad. IVC/SVC/PA/PV/Pleural The inferior vena cava is not visualized. The estimated RA pressure by IVC dynamics indeterminate . Chambers/Structures Left Atrium LA Dimension: 3.37 cm LA Area: 15.69 cm^2 LA Volume: 19.57 ml LA Vol. Index: 10 ml/m^2 Left Ventricle LVIDd: 4.29 cm LVIDs: 2.71 cm LV Septum Diastolic: 0.98 cm LV PW Diastolic: 1.09 cm LV FS: 36.8 % LVEDV Scott's:50.85 ml LV IVRT: 125.1 msec LVESV Scott's:21.84 ml LVEDVI: 27 ml/m^2 LVEF Scott's: 57 % LVESVI: 11 ml/m^2 LVOT Diameter: 1.99 cm Right Atrium RA Vol. (Sngl Plane): 31.82 ml Right Ventricle RV Diast Dim.: 3.4 cm RV Area Systolic: 10.45 cm^2 RV Area Diastolic: 18.74 cm^2 TAPSE: 2.51 cm Aorta Ao Root S of Kenzie.: 3.34 cm Ascending Aorta: 3.01 cm Doppler/Quantitative Measurements Mitral Valve MV Peak E-Wave: 0.75 m/s MV Peak A-Wave: 0.84 m/s E/A Ratio: 0.89 Peak Gradient: 2.27 mmHg Deceleration Time: 175.1 msec MV Gopi. Peak: Tissue Doppler E' Lateral Velocity: 0.07 m/s E/E': 10.95 LVOT Peak Velocity: 1.24 m/s Peak Gradient: 6.17 mmHg Mean Velocity: 0.85 m/s Mean Gradient: 3.36 mmHg LVOT Diameter: 1.99 cm LVOT VTI: 20.35 cm LVOT Area: 3.11 cm^2 LVOT SV:63.26 ml LVOT CO: 5.95 l/min LVOT CI: 3.13 l/min/m^2 RVOT RVOT VTI (PW): 17.01 cm Manual Differential (08/04/2017 5:15 AM) Component Value Ref Range Total Counted Specimen Performing Laboratory Blood [facility] [address] [address] CBC with platelet count + automated diff (08/04/2017 5:15 AM)Only the most recent of3 resultswithin the time period is included. Component Value Ref Range WBC 7.4 3.5 - 10.5 K/L RBC 4.75 3.93 - 5.22 M/L Hemoglobin 15.3 11.2 - 15.7 GM/DL Hematocrit 45.8 (H) 34.1 - 44.9 % MCV 96.4 (H) 79.4 - 94.8 fL MCH 32.2 25.6 - 32.2 pg MCHC 33.4 32.2 - 35.5 GM/DL RDW 12.3 11.7 - 14.4 % Platelets 148 (L) 150 - 450 K/CU MM MPV 10.6 9.4 - 12.3 fL nRBC 0 0 - 0 /100 WBC % Neutros 47 % % Lymphs 44 % % Monos 6 % % Eos 3 % % Baso 0 % # Neutros 3.44 1.56 - 6.13 K/L # Lymphs 3.25 1.18 - 3.74 K/L # Monos 0.44 (H) 0.24 - 0.36 K/L # Eos 0.22 0.04 - 0.36 K/L # Baso 0.02 0.01 - 0.08 K/L Immature Granulocytes-Relative 0 0 - 1 % Specimen Performing Laboratory Blood [address] [address] CBC with platelet count + automated diff (08/04/2017 5:15 AM)Only the most recent of3 resultswithin the time period is included. Specimen Performing Laboratory Blood Narrative The following orders were created for panel order CBC with platelet count + automated diff. Procedure Abnormality Status --------- ------ CBC with platelet count ...[[id number]]AbnormalFinal result Manual Differential[[id number]] Fi nal result Please view results for these tests on the individual orders. Hepatic function panel (08/04/2017 5:15 AM)Only the most recent of3 resultswithin the time period is included. Component Value Ref Range Protein, Total 7.1 6.0 - 8.3 gm/dL Albumin 4.2 3.5 - 5.0 g/dL Total Bilirubin 0.7 0.2 - 1.2 mg/dL Bilirubin, Direct 0.2 0.1 - 0.5 mg/dL Alkaline Phosphatase 73 40 - 150 U/L AST 15 5 - 34 U/L ALT 22 6 - 55 U/L Specimen Performing Laboratory Blood [address] [address] Basic metabolic panel (08/04/2017 5:15 AM)Only the most recent of3 resultswithin the time period is included. Component Value Ref Range Sodium 136 136 - 145 meq/L Potassium 4.4 3.5 - 5.1 meq/L Chloride 101 98 - 107 meq/L CO2 26 22 - 29 meq/L BUN 13 7 - 21 mg/dL Creatinine 0.79 0.57 - 1.25 mg/dL Glucose 256 (H) 70 - 105 mg/dL Calcium 9.9 8.4 - 10.2 mg/dL EGFR 79Comment: ESTIMATED GFR IS NOT ACCURATE mL/min/1.73 sq m CREATININE CLEARANCE IN PREDICTING GLOMERULAR FILTRATION RATE. ESTIMATED GFR IS NOT APPLICABLE FOR DIALYSIS PATIENTS. Specimen Performing Laboratory Blood [facility] [address] [address] MR brain without IV contrast (08/03/2017 10:01 AM) Specimen Performing Laboratory RIS Narrative FINAL REPORT MRI Brain without contrast Clinical History: Stroke Technique: MRI of the brain utilizing axial T2, FLAIR, GRE, DWI; sagittal and coronal T1-weighted images. Comparisons: CT 08/03/2017 Findings: There are acute to subacute infarcts of the high superior frontal lobe, and the right parieto-occipital lobes. There is no hemorrhage. There are a few scattered nonspecific foci of FLAIR signal abnormality in the subcortical and periventricular white matter. There is no hydrocephalus, midline shift, or apparent mass effect. There are no extra-axial fluid collections. The craniocervical junction is preserved. The major intracranial flow-voids appear patent. There is a right maxillary sinus mucus retention cyst or polyp. IMPRESSION: Acute to subacute right frontal, parietal, and occipital infarcts without hemorrhage. Signed: Ania Carter MD Report Verified Date/Time:08/03/2017 10:20:31 Reading Location: [facility] [id number] Neuro Reading Room Procedure Note Interface, External Ris In - 08/03/2017 10:22 AM CDT FINAL REPORT MRI Brain without contrast Clinical History: Stroke Technique: MRI of the brain utilizing axial T2, FLAIR, GRE, DWI; sagittal and coronal T1-weighted images. Comparisons: CT 08/03/2017 Findings: There are acute to subacute infarcts of the high superior frontal lobe, and the right parieto-occipital lobes. There is no hemorrhage. There are a few scattered nonspecific foci of FLAIR signal abnormality in the subcortical and periventricular white matter. There is no hydrocephalus, midline shift, or apparent mass effect. There are no extra-axial fluid collections. The craniocervical junction is preserved. The major intracranial flow-voids appear patent. There is a right maxillary sinus mucus retention cyst or polyp. IMPRESSION: Acute to subacute right frontal, parietal, and occipital infarcts without hemorrhage. Signed: Ania Carter MD Report Verified Date/Time: 08/03/2017 10:20:31 Reading Location: [facility] C013V Neuro Reading Room /Free T4 If Indicated (08/03/2017 6:12 AM) Component Value Ref Range TSH 3.56 0.35 - 4.94 uIU/mL Specimen Performing Laboratory Blood [address] [address] Folate, Serum (08/03/2017 6:12 AM) Component Value Ref Range Folate 6.5 (L) >=7.0 ng/mL Specimen Performing Laboratory Blood [address] [address] Vitamin B12 (08/03/2017 6:12 AM) Component Value Ref Range Vitamin B12 398 213 - 816 pg/mL Specimen Performing Laboratory Blood [address] [address] CTA carotid (08/03/2017 2:17 AM) Specimen Performing Laboratory GE RIS Narrative Addendum Begins REPORT STATUS:A / Signed: Schuyler Blas MD Report Verified Date/Time:08/03/2017 02:48:07 Reading Location: [facility] C0X Ortho Consult Reading Room Addendum Ends FINAL REPORT CT, CTANGIOBRAIN, CT, CAROTID, ANGIO BRAIN CT WITHOUT CONTRAST INDICATION: "Carotid stenosis, known or suspected subacute stroke in watershed distribution" COMPARISON: CT head of the same date TECHNIQUE: Rapid acquisition spiral images were obtained between the aortic arch and the cranial vertex during intravenous contrast infusion to reconstruct axial images and angiographic 3D maximum intensity projections (MIP). 3-D volumetric reformatted images were created at a dedicated workstation. Precontrast images of the brain were also obtained. Measurements are performed according to NASCET criteria. DOSE REDUCTION: Dose modulation, iterative reconstruction, and/or weight-based adjustment of the mA/kV was utilized to reduce the radiation dose to as low as reasonably achievable. FINDINGS: NECT BRAIN: Midline structures and posterior fossa within normal limits. There are small infarcts within the right parieto-occipital and posterior frontal lobes. No hemorrhagic transformation. No left-sided acute infarcts or infratentorial infarcts. No acute hydrocephalus. The entire calvarium. Large mucous retention cyst in the right maxillary sinus. Symmetric globes. CTA NECK: On the right, there is moderate calcific and noncalcific atherosclerotic disease at the carotid bulb. 50% stenosis of the proximal ICA. On the left, there is moderate calcific and noncalcific atherosclerotic disease of the carotid bulb.. 50% stenosis of the proximal ICA. Co-dominant vertebral artery system. No flow limiting stenosis of vertebral arteries. Nonvascular findings: No acute osseous abnormality. No adenopathy. Patent aerodigestive tract. No apical consolidation or pneumothorax. CTA BRAIN: Mild to moderate atherosclerotic disease of the carotid siphons. No large vessel occlusion, aneurysm, or flow limiting stenosis of the anterior circulation. No flow limiting stenosis, large vessel occlusion, or aneurysm of the posterior circulation. Major venous sinuses opacify normally on this suboptimal exam for these structures. IMPRESSION: Small subacute infarcts in the right parieto-occipital and posterior frontal lobes. These are not definitively watershed infarcts and could reflect embolic infarcts. 50% stenosis of both proximal ICAs. Signed: Schuyler Blas MD Report Verified Date/Time:08/03/2017 02:37:44 Reading Location: [facility] C0X Ortho Consult Reading Room Procedure Note Interface, External Ris In - 08/03/2017 2:50 AM CDT Addendum Begins REPORT STATUS:A / Signed: Schuyler Blas MD Report Verified Date/Time: 08/03/2017 02:48:07 Reading Location: [facility] [id number] Ortho Consult Reading Room Addendum Ends FINAL REPORT CT, CTANGIO BRAIN, CT, CAROTID, ANGIO BRAIN CT WITHOUT CONTRAST INDICATION: "Carotid stenosis, known or suspected subacute stroke in watershed distribution" COMPARISON: CT head of the same date TECHNIQUE: Rapid acquisition spiral images were obtained between the aortic arch and the cranial vertex during intravenous contrast infusion to reconstruct axial images and angiographic 3D maximum intensity projections (MIP). 3-D volumetric reformatted images were created at a dedicated workstation. Precontrast images of the brain were also obtained. Measurements are performed according to NASCET criteria. DOSE REDUCTION: Dose modulation, iterative reconstruction, and/or weight-based adjustment of the mA/kV was utilized to reduce the radiation dose to as low as reasonably achievable. FINDINGS: NECT BRAIN: Midline structures and posterior fossa within normal limits. There are small infarcts within the right parieto-occipital and posterior frontal lobes. No hemorrhagic transformation. No left-sided acute infarcts or infratentorial infarcts. No acute hydrocephalus. The entire calvarium. Large mucous retention cyst in the right maxillary sinus. Symmetric globes. CTA NECK: On the right, there is moderate calcific and noncalcific atherosclerotic disease at the carotid bulb. 50% stenosis of the proximal ICA. On the left, there is moderate calcific and noncalcific atherosclerotic disease of the carotid bulb.. 50% stenosis of the proximal ICA. Co-dominant vertebral artery system. No flow limiting stenosis of vertebral arteries. Nonvascular findings: No acute osseous abnormality. No adenopathy. Patent aerodigestive tract. No apical consolidation or pneumothorax. CTA BRAIN: Mild to moderate atherosclerotic disease of the carotid siphons. No large vessel occlusion, aneurysm, or flow limiting stenosis of the anterior circulation. No flow limiting stenosis, large vessel occlusion, or aneurysm of the posterior circulation. Major venous sinuses opacify normally on this suboptimal exam for these structures. IMPRESSION: Small subacute infarcts in the right parieto-occipital and posterior frontal lobes. These are not definitively watershed infarcts and could reflect embolic infarcts. 50% stenosis of both proximal ICAs. Signed: Schuyler Blas MD Report Verified Date/Time: 08/03/2017 02:37:44 Reading Location: [facility] B1 C013X [facility] Consult Reading Room brain (08/03/2017 2:17 AM) Specimen Performing Laboratory GE RIS Narrative Addendum Begins REPORT STATUS:A / Signed: Schuyler Blas MD Report Verified Date/Time:08/03/2017 02:48:07 Reading Location: [place] [id number] Ortho Consult Reading Room Addendum Ends FINAL REPORT CT, CTANGIOBRAIN, CT, CAROTID, ANGIO BRAIN CT WITHOUT CONTRAST INDICATION: "Carotid stenosis, known or suspected subacute stroke in watershed distribution" COMPARISON: CT head of the same date TECHNIQUE: Rapid acquisition spiral images were obtained between the aortic arch and the cranial vertex during intravenous contrast infusion to reconstruct axial images and angiographic 3D maximum intensity projections (MIP). 3-D volumetric reformatted images were created at a dedicated workstation. Precontrast images of the brain were also obtained. Measurements are performed according to NASCET criteria. DOSE REDUCTION: Dose modulation, iterative reconstruction, and/or weight-based adjustment of the mA/kV was utilized to reduce the radiation dose to as low as reasonably achievable. FINDINGS: NECT BRAIN: Midline structures and posterior fossa within normal limits. There are small infarcts within the right parieto-occipital and posterior frontal lobes. No hemorrhagic transformation. No left-sided acute infarcts or infratentorial infarcts. No acute hydrocephalus. The entire calvarium. Large mucous retention cyst in the right maxillary sinus. Symmetric globes. CTA NECK: On the right, there is moderate calcific and noncalcific atherosclerotic disease at the carotid bulb. 50% stenosis of the proximal ICA. On the left, there is moderate calcific and noncalcific atherosclerotic disease of the carotid bulb.. 50% stenosis of the proximal ICA. Co-dominant vertebral artery system. No flow limiting stenosis of vertebral arteries. Nonvascular findings: No acute osseous abnormality. No adenopathy. Patent aerodigestive tract. No apical consolidation or pneumothorax. CTA BRAIN: Mild to moderate atherosclerotic disease of the carotid siphons. No large vessel occlusion, aneurysm, or flow limiting stenosis of the anterior circulation. No flow limiting stenosis, large vessel occlusion, or aneurysm of the posterior circulation. Major venous sinuses opacify normally on this suboptimal exam for these structures. IMPRESSION: Small subacute infarcts in the right parieto-occipital and posterior frontal lobes. These are not definitively watershed infarcts and could reflect embolic infarcts. 50% stenosis of both proximal ICAs. Signed: Schuyler Blas MD Report Verified Date/Time:08/03/2017 02:37:44 Reading Location: [facility] [id number] Ortho Consult Reading Room Procedure Note Interface, External Ris In - 08/03/2017 2:50 AM CDT Addendum Begins REPORT STATUS:A / Signed: Schuyler Blas MD Report Verified Date/Time: 08/03/2017 02:48:07 Reading Location: [facility] C013X Ortho Consult Reading Room Addendum Ends FINAL REPORT CT, CTANGIO BRAIN, CT, CAROTID, ANGIO BRAIN CT WITHOUT CONTRAST INDICATION: "Carotid stenosis, known or suspected subacute stroke in watershed distribution" COMPARISON: CT head of the same date TECHNIQUE: Rapid acquisition spiral images were obtained between the aortic arch and the cranial vertex during intravenous contrast infusion to reconstruct axial images and angiographic 3D maximum intensity projections (MIP). 3-D volumetric reformatted images were created at a dedicated workstation. Precontrast images of the brain were also obtained. Measurements are performed according to NASCET criteria. DOSE REDUCTION: Dose modulation, iterative reconstruction, and/or weight-based adjustment of the mA/kV was utilized to reduce the radiation dose to as low as reasonably achievable. FINDINGS: NECT BRAIN: Midline structures and posterior fossa within normal limits. There are small infarcts within the right parieto-occipital and posterior frontal lobes. No hemorrhagic transformation. No left-sided acute infarcts or infratentorial infarcts. No acute hydrocephalus. The entire calvarium. Large mucous retention cyst in the right maxillary sinus. Symmetric globes. CTA NECK: On the right, there is moderate calcific and noncalcific atherosclerotic disease at the carotid bulb. 50% stenosis of the proximal ICA. On the left, there is moderate calcific and noncalcific atherosclerotic disease of the carotid bulb.. 50% stenosis of the proximal ICA. Co-dominant vertebral artery system. No flow limiting stenosis of vertebral arteries. Nonvascular findings: No acute osseous abnormality. No adenopathy. Patent aerodigestive tract. No apical consolidation or pneumothorax. CTA BRAIN: Mild to moderate atherosclerotic disease of the carotid siphons. No large vessel occlusion, aneurysm, or flow limiting stenosis of the anterior circulation. No flow limiting stenosis, large vessel occlusion, or aneurysm of the posterior circulation. Major venous sinuses opacify normally on this suboptimal exam for these structures. IMPRESSION: Small subacute infarcts in the right parieto-occipital and posterior frontal lobes. These are not definitively watershed infarcts and could reflect embolic infarcts. 50% stenosis of both proximal ICAs. Signed: Schuyler Blas MD Report Verified Date/Time: 08/03/2017 02:37:44 Reading Location: [facility] C0X Ortho Consult Reading Room Hemoglobin A1c (08/02/2017 8:25 PM) Component Value Ref Range Hemoglobin A1C 13.4 (H) 4.3 - 6.1 % Specimen Performing Laboratory Blood [address] [address] Lipid panel (08/02/2017 8:25 PM) Component Value Ref Range Triglycerides 488Comment: Specimen slightly hemolyzed mg/dL Cholesterol 176Comment: Specimen slightly hemolyzed mg/dL HDL 32 mg/dL Specimen Performing Laboratory Blood [address] [address] Narrative Calculated LDL not valid if triglyceride >400 mg/dL Triglyceride Reference Range: Low Risk <150 Qfcsohcnqp862-282 High Risk 200-499 Very High Risk>=500 Cholesterol Reference Range: Low Risk <200 Wzvkktcfii522-441 High Risk>240 HDL Cholesterol Reference Range: Low Risk >=60 High Risk <40 LDL Cholesterol Reference Range: Optimal<100 Near Czweqvz658-735 Cdzhxegmtw156-696 Yhpm396-723 Very High >=190 after 09/26/2016
--- OUTSIDE RECORDS SUMMARY | 2017-09-27 10:39 | XMS REPORT ---
:1970 Author Organization [facility] Address [address] [place] [address] [address] [place] [address] Care Team Providers Name Role Phone CANDI BAKER Unavailable Unavailable Problems This patient has no known problems. Allergies, Adverse Reactions, Alerts This patient has no known allergies or adverse reactions. Medications This patient has no known medications. Results Test Description Test Time Test Comments Text Results Atomic Results Result Comments POCT-GLUCOSE METER 2017-08-05 12:50:00 Test Item Value Reference Range Comments POC-GLUCOSE METER (BEAKER) (test 303 mg/dL 70-110 TESTED AT [address] hgox=9620) [facility] [address] POCT-GLUCOSE [id number] 07:28:00 Test Item Value Reference Range Comments POC-GLUCOSE METER (BEAKER) 241 mg/dL 70-110 TESTED AT [address] (test dsbo=9683) [facility] [address] POCT-GLUCOSE [id number] 00:08:00 Test Item Value Reference Range Comments POC-GLUCOSE METER (BEAKER) 280 mg/dL 70-110 TESTED AT [address] (test wsml=1447) [facility] [address] POCT-GLUCOSE [id number] 18:41:00 Test Item Value Reference Range Comments POC-GLUCOSE METER (BEAKER) 221 mg/dL 70-110 TESTED AT [address] (test lris=5357) [facility] [address] POCT-GLUCOSE [id number] 11:50:00 Test Item Value Reference Range Comments POC-GLUCOSE METER (BEAKER) 296 mg/dL 70-110 TESTED AT [address] (test ckkg=1782) [facility] [address] CBC W/PLT COUNT & AUTO [id number] 08:41:00 Test Item Value Reference Range Comments WHITE BLOOD CELL COUNT (BEAKER) (test yzcy=403) 7.4 K/ L 3.5-10.5 RED BLOOD CELL COUNT (BEAKER) (test dvpu=572) 4.75 M/ L 3.93-5.22 HEMOGLOBIN (BEAKER) (test ykyj=978) 15.3 GM/DL 11.2-15.7 HEMATOCRIT (BEAKER) (test biyn=055) 45.8 % 34.1-44.9 MEAN CORPUSCULAR VOLUME (BEAKER) (test twgk=372) 96.4 fL 79.4-94.8 MEAN CORPUSCULAR HEMOGLOBIN (BEAKER) (test 32.2 pg 25.6-32.2 uoqc=177) MEAN CORPUSCULAR HEMOGLOBIN CONC (BEAKER) (test 33.4 GM/DL 32.2-35.5 vvak=292) RED CELL DISTRIBUTION WIDTH (BEAKER) (test 12.3 % 11.7-14.4 cxiy=539) PLATELET COUNT (BEAKER) (test shka=007) 148 K/CU MM 150-450 MEAN PLATELET VOLUME (BEAKER) (test btwk=091) 10.6 fL 9.4-12.3 NUCLEATED RED BLOOD CELLS (BEAKER) (test 0 /100 WBC 0-0 jwbk=511) NEUTROPHILS RELATIVE PERCENT (BEAKER) (test 47 % xbul=005) LYMPHOCYTES RELATIVE PERCENT (BEAKER) (test 44 % haxi=983) MONOCYTES RELATIVE PERCENT (BEAKER) (test 6 % xgbk=253) EOSINOPHILS RELATIVE PERCENT (BEAKER) (test 3 % yskx=627) BASOPHILS RELATIVE PERCENT (BEAKER) (test 0 % eoyj=428) NEUTROPHILS ABSOLUTE COUNT (BEAKER) (test 3.44 K/ L 1.56-6.13 cdvv=405) LYMPHOCYTES ABSOLUTE COUNT (BEAKER) (test 3.25 K/ L 1.18-3.74 viid=546) MONOCYTES ABSOLUTE COUNT (BEAKER) (test 0.44 K/ L 0.24-0.36 ggqb=180) EOSINOPHILS ABSOLUTE COUNT (BEAKER) (test 0.22 K/ L 0.04-0.36 notf=726) BASOPHILS ABSOLUTE COUNT (BEAKER) (test 0.02 K/ L 0.01-0.08 ferc=861) IMMATURE GRANULOCYTES-RELATIVE PERCENT (BEAKER) 0 % 0-1 (test onhx=9668) (MANUAL DIFFERENTIAL)2017-08-04 08:41:00 Test Item Value Reference Range Comments TOTAL COUNTED (BEAKER) (test avdv=7748) POCT-GLUCOSE [id number] 07:16:00 Test Item Value Reference Range Comments POC-GLUCOSE METER (BEAKER) 213 mg/dL 70-110 TESTED AT [facility] (test tgoz=9536) [facility] [address] HEPATIC FUNCTION [id number] 06:10:00 Test Item Value Reference Range Comments TOTAL PROTEIN (BEAKER) (test gzin=155) 7.1 gm/dL 6.0-8.3 ALBUMIN (BEAKER) (test albr=8691) 4.2 g/dL 3.5-5.0 BILIRUBIN TOTAL (BEAKER) (test iqyk=660) 0.7 mg/dL 0.2-1.2 BILIRUBIN DIRECT (BEAKER) (test czfd=636) 0.2 mg/dL 0.1-0.5 ALKALINE PHOSPHATASE (BEAKER) (test codh=840) 73 U/L 40-150 AST (SGOT) (BEAKER) (test tjvm=052) 15 U/L 5-34 ALT (SGPT) (BEAKER) (test zutd=477) 22 U/L 6-55 BASIC METABOLIC [id number] 06:10:00 Test Item Value Reference Range Comments SODIUM (BEAKER) (test 136 meq/L 136-145 ktzl=248) POTASSIUM (BEAKER) (test 4.4 meq/L 3.5-5.1 ricm=136) CHLORIDE (BEAKER) (test 101 meq/L 98-107 ljhk=990) CO2 (BEAKER) (test 26 meq/L 22-29 mrjv=226) BLOOD UREA NITROGEN 13 mg/dL 7-21 (BEAKER) (test gkhq=028) CREATININE (BEAKER) (test 0.79 mg/dL 0.57-1.25 lukb=893) GLUCOSE RANDOM (BEAKER) 256 mg/dL 70-105 (test omsn=816) CALCIUM (BEAKER) (test 9.9 mg/dL 8.4-10.2 dffn=731) EGFR (BEAKER) (test 79 mL/min/1.73 sq m ESTIMATED GFR IS NOT bnrg=9716) ACCURATE CREATININE CLEARANCE IN PREDICTING GLOMERULAR FILTRATION RATE. ESTIMATED GFR IS NOT APPLICABLE FOR DIALYSIS PATIENTS. POCT-GLUCOSE [id number] 23:52:00 Test Item Value Reference Range Comments POC-GLUCOSE METER (BEAKER) 241 mg/dL 70-110 TESTED AT [address] (test fesv=9683) [place] [id number] POCT-GLUCOSE [id number] 21:08:00 Test Item Value Reference Range Comments POC-GLUCOSE METER (BEAKER) 290 mg/dL 70-110 TESTED AT [address] (test kcwz=5417) [place] [id number] POCT-GLUCOSE [id number] 18:05:00 Test Item Value Reference Range Comments POC-GLUCOSE METER (BEAKER) 271 mg/dL 70-110 TESTED AT [address] (test qqok=0315) [place] [address] POCT-GLUCOSE [id number] 14:51:00 Test Item Value Reference Range Comments POC-GLUCOSE METER (BEAKER) 280 mg/dL 70-110 TESTED AT [address] (test jjsv=6429) [place] [address] VITAMIN [id number] 12:52:00 Test Item Value Reference Range Comments VITAMIN B12 (BEAKER) (test hrjf=980) 398 pg/mL 213-816 FOLATE, [id number] 12:52:00 Test Item Value Reference Range Comments FOLATE (BEAKER) (test jtxw=764) 6.5 ng/mL >=7.0 MR, BRAIN, WITHOUT [id number] 10:20:00FINAL REPORT MRI Brain without contrast Clinical History: [...] occipital infarcts without hemorrhage. Signed: Ania Carter MDReport Verified Date/Time: 08/03/2017 10:20:31 Reading Location: [facility] C013V Neuro Reading Room HEMOGLOBIN [id number] 08:11:00 Test Item Value Reference Range Comments HEMOGLOBIN A1C (BEAKER) (test zgdj=761) 13.4 % 4.3-6.1 POCT-GLUCOSE [id number] 07:31:00 Test Item Value Reference Range Comments POC-GLUCOSE METER (BEAKER) 274 mg/dL 70-110 TESTED AT [facility] (test mbuc=4206) [facility] [address] HEPATIC FUNCTION [id number] 07:15:00 Test Item Value Reference Range Comments TOTAL PROTEIN (BEAKER) (test vomn=103) 6.4 gm/dL 6.0-8.3 ALBUMIN (BEAKER) (test gvyo=2238) 3.8 g/dL 3.5-5.0 BILIRUBIN TOTAL (BEAKER) (test qojq=733) 0.5 mg/dL 0.2-1.2 BILIRUBIN DIRECT (BEAKER) (test rfuf=479) 0.2 mg/dL 0.1-0.5 ALKALINE PHOSPHATASE (BEAKER) (test hsuq=049) 71 U/L 40-150 AST (SGOT) (BEAKER) (test tqaf=893) 10 U/L 5-34 ALT (SGPT) (BEAKER) (test qfvh=456) 18 U/L 6-55 BASIC METABOLIC [id number] 07:15:00 Test Item Value Reference Range Comments SODIUM (BEAKER) (test 134 meq/L 136-145 decx=397) POTASSIUM (BEAKER) (test 4.4 meq/L 3.5-5.1 jput=028) CHLORIDE (BEAKER) (test 101 meq/L 98-107 hcrd=684) CO2 (BEAKER) (test 25 meq/L 22-29 ugso=293) BLOOD UREA NITROGEN 13 mg/dL 7-21 (BEAKER) (test qhum=383) CREATININE (BEAKER) (test 0.80 mg/dL 0.57-1.25 hhbx=960) GLUCOSE RANDOM (BEAKER) 299 mg/dL 70-105 (test otcj=783) CALCIUM (BEAKER) (test 9.5 mg/dL 8.4-10.2 eybr=346) EGFR (BEAKER) (test 78 mL/min/1.73 sq m ESTIMATED GFR IS NOT yqoy=4978) ACCURATE CREATININE CLEARANCE IN PREDICTING GLOMERULAR FILTRATION RATE. ESTIMATED GFR IS NOT APPLICABLE FOR DIALYSIS PATIENTS. TSH/FREE T4 IF [id number] 07:08:00 Test Item Value Reference Range Comments THYROID STIMULATING HORMONE (BEAKER) (test 3.56 uIU/mL 0.35-4.94 kysd=113) CBC W/PLT COUNT & AUTO [id number] 06:36:00 Test Item Value Reference Range Comments WHITE BLOOD CELL COUNT (BEAKER) (test gdfa=432) 8.6 K/ L 3.5-10.5 RED BLOOD CELL COUNT (BEAKER) (test mhvh=080) 4.54 M/ L 3.93-5.22 HEMOGLOBIN (BEAKER) (test jgpn=179) 14.5 GM/DL 11.2-15.7 HEMATOCRIT (BEAKER) (test egwg=000) 43.8 % 34.1-44.9 MEAN CORPUSCULAR VOLUME (BEAKER) (test zqho=836) 96.5 fL 79.4-94.8 MEAN CORPUSCULAR HEMOGLOBIN (BEAKER) (test 31.9 pg 25.6-32.2 oqwp=987) MEAN CORPUSCULAR HEMOGLOBIN CONC (BEAKER) (test 33.1 GM/DL 32.2-35.5 zfsy=144) RED CELL DISTRIBUTION WIDTH (BEAKER) (test 12.5 % 11.7-14.4 hhcr=107) PLATELET COUNT (BEAKER) (test yxai=907) 139 K/CU MM 150-450 MEAN PLATELET VOLUME (BEAKER) (test uihv=463) 10.8 fL 9.4-12.3 NUCLEATED RED BLOOD CELLS (BEAKER) (test 0 /100 WBC 0-0 aqie=980) NEUTROPHILS RELATIVE PERCENT (BEAKER) (test 55 % rszf=905) LYMPHOCYTES RELATIVE PERCENT (BEAKER) (test 37 % qkmu=822) MONOCYTES RELATIVE PERCENT (BEAKER) (test 6 % kelb=744) EOSINOPHILS RELATIVE PERCENT (BEAKER) (test 2 % ahqj=862) BASOPHILS RELATIVE PERCENT (BEAKER) (test 0 % lhns=866) NEUTROPHILS ABSOLUTE COUNT (BEAKER) (test 4.70 K/ L 1.56-6.13 mbcf=403) LYMPHOCYTES ABSOLUTE COUNT (BEAKER) (test 3.21 K/ L 1.18-3.74 pdvo=992) MONOCYTES ABSOLUTE COUNT (BEAKER) (test 0.48 K/ L 0.24-0.36 dwqr=835) EOSINOPHILS ABSOLUTE COUNT (BEAKER) (test 0.18 K/ L 0.04-0.36 qldn=016) BASOPHILS ABSOLUTE COUNT (BEAKER) (test 0.03 K/ L 0.01-0.08 drfh=494) IMMATURE GRANULOCYTES-RELATIVE PERCENT (BEAKER) 0 % 0-1 (test jhsk=8829) CT, CTANGIO [id number] 02:48:00Addendum BeginsREPORT STATUS:A / Signed: Schuyler Blas MDReport Verified Date/Time: 08/03/2017 02:48:07 Reading Location: [address] Ortho Consult Reading RoomAddendum EndsFINAL REPORT CT, CTANGIO BRAIN, CT, CAROTID, ANGIOBRAIN CT WITHOUT CONTRAST INDICATION: "Carotid stenosis, known or suspectedsubacute stroke in watershed distribution" COMPARISON:CT head of the same date TECHNIQUE:Rapid acquisition spiral images were obtained between the aortic arch and the cranial vertex during intravenous contrast infusion to reconstruct axial images and angiographic 3D maximum intensity projections (MIP) . 3-D volumetric reformatted images were created at a dedicated workstation. Precontrast images of the brain were also obtained. Measurements are performedaccording to NASCET criteria. DOSE REDUCTION: Dose modulation, iterative reconstruction, and/or weight-based adjustment of the mA/kV was utilized to reduce the radiation dose to as low as reasonably achievable. FINDINGS: NECT BRAIN: Midline structures and posterior fossa within normal limits.There are small infarcts within the right parieto-occipital and posterior frontal lobes.No hemorrhagic transformation.No left-sided acute infarcts or infratentorial infarcts.No acute hydrocephalus. The entire calvarium.Large mucous retention cyst in the right maxillary sinus.Symmetric globes. CTA NECK:On the right, there is moderate calcific and noncalcific atherosclerotic disease at the carotid bulb. 50% stenosis of the proximal ICA.On the left, there is moderate calcific and noncalcific atherosclerotic disease of the carotid bulb.. 50% stenosis of the proximal ICA.Co-dominant vertebral artery system. No flow limiting stenosis of vertebral arteries. Nonvascular findings:No acute osseous abnormality.No adenopathy. Patent aerodigestive tract.No apical consolidation or pneumothorax. CTA BRAIN:Mild to moderate atherosclerotic disease of the carotid siphons.No large vessel occlusion, aneurysm, or flow limiting stenosis of the anterior circulation.No flow limiting stenosis, large vessel occlusion, or aneurysm of the posterior circulation.Major venous sinuses opacify normally on this suboptimal exam for these structures. IMPRESSION:Small subacute infarcts in the right parieto- occipital and posterior frontal lobes. These are not definitively watershed infarcts and could reflect embolic infarcts.50% stenosis of both proximal ICAs. Signed: Schuyler Blas MDReport Verified Date/Time: 08/03/2017 02:37:44 Reading Location: [address] Ortho Consult Reading Room CT, CAROTID, [id number] 02:48:00Addendum BeginsREPORT STATUS:A / Signed: Schuyler Blas MDReport Verified Date/Time: 08/03/2017 02:48:07 Reading Location: [address] Ortho Consult Reading RoomAddendum EndsFINAL REPORT CT, CTANGIO BRAIN, CT, CAROTID, ANGIOBRAIN CT WITHOUT CONTRAST INDICATION: "Carotid stenosis, known or suspectedsubacute stroke in watershed distribution" COMPARISON:CT head of the same date TECHNIQUE:Rapid acquisition spiral images were obtained between the aortic arch and the cranial vertex during intravenous contrast infusion to reconstruct axial images and angiographic 3D maximum intensity projections (MIP). 3-D volumetric reformatted images were created at a dedicated workstation. Precontrast images of the brain were also obtained. Measurements are performedaccording to NASCET criteria. DOSE REDUCTION: Dose modulation, iterative reconstruction, and/or weight-based adjustment of the mA/kV was utilized to reduce the radiation dose to as low as reasonably achievable. FINDINGS: NECT BRAIN: Midline structures and posterior fossa within normal limits.There are small infarcts within the right parieto- occipital and posterior frontal lobes.No hemorrhagic transformation.No left- sided acute infarcts or infratentorial infarcts.No acute hydrocephalus. The entire calvarium.Large mucous retention cyst in the right maxillary sinus.Symmetric globes. CTA NECK:On the right, there is moderate calcific and noncalcific atherosclerotic disease at the carotid bulb. 50% stenosis of the proximal ICA.On the left, there is moderate calcific and noncalcific atherosclerotic disease of the carotid bulb.. 50% stenosis of the proximal ICA.Co-dominant vertebral artery system. No flow limiting stenosis of vertebral arteries. Nonvascular findings:No acute osseous abnormality.No adenopathy. Patent aerodigestive tract.No apical consolidation or pneumothorax. CTA BRAIN: Mild to moderate atherosclerotic disease of the carotid siphons.No large vessel occlusion, aneurysm, or flow limiting stenosis of the anterior circulation.No flow limiting stenosis, large vessel occlusion, or aneurysm of the posterior circulation.Major venous sinuses opacify normally on this suboptimal exam for these structures. IMPRESSION:Small subacute infarcts in the right parieto- occipital and posterior frontal lobes. These are not definitively watershed infarcts and could reflect embolic infarcts.50% stenosis of both proximal ICAs. Signed: Schuyler Blas MDReport Verified Date/Time: 08/03/2017 02:37:44 Reading Location: [address] Consult Reading Room POCT-GLUCOSE [id number] 21:29:00 Test Item Value Reference Range Comments POC-GLUCOSE METER (BEAKER) 329 mg/dL 70-110 TESTED AT [address] (test cpia=4790) [facility] [address] BASIC METABOLIC [id number] 21:01:00 Test Item Value Reference Range Comments SODIUM (BEAKER) (test 139 meq/L 136-145 owdd=334) POTASSIUM (BEAKER) (test 4.8 meq/L 3.5-5.1 Specimen slightly tiju=142) hemolyzed CHLORIDE (BEAKER) (test 103 meq/L 98-107 xwii=433) CO2 (BEAKER) (test 27 meq/L 22-29 bpnq=971) BLOOD UREA NITROGEN 13 mg/dL 7-21 (BEAKER) (test jceh=946) CREATININE (BEAKER) (test 0.86 mg/dL 0.57-1.25 Specimen slightly frog=452) hemolyzed GLUCOSE RANDOM (BEAKER) 243 mg/dL 70-105 (test ymck=598) CALCIUM (BEAKER) (test 9.5 mg/dL 8.4-10.2 oajp=008) EGFR (BEAKER) (test 71 mL/min/1.73 sq m ESTIMATED GFR IS NOT jzvg=3321) ACCURATE CREATININE CLEARANCE IN PREDICTING GLOMERULAR FILTRATION RATE. ESTIMATED GFR IS NOT APPLICABLE FOR DIALYSIS PATIENTS. LIPID [id number] 21:01:00 Test Item Value Reference Range Comments TRIGLYCERIDES (BEAKER) (test 488 mg/dL Specimen slightly hemolyzed lrqm=083) CHOLESTEROL (BEAKER) (test 176 mg/dL Specimen slightly hemolyzed aeuz=532) HDL CHOLESTEROL (BEAKER) (test 32 mg/dL adul=971) Calculated LDL not valid if triglyceride >400 mg/dLTriglyceride Reference Range: Low Risk <150 Borderline 150-199 High Risk 200-499 Very High Risk >=500Cholesterol Reference Range: Low Risk <200 Borderline 200-239 High Risk >240HDL Cholesterol Reference Range: Low Risk >=60 High Risk <40LDL Cholesterol ReferenceRange: Optimal <100 Near Optimal 100-129 Borderline 130-159 High 160-189 Very High >=190HEPATIC FUNCTION [id number] 21:01:00 Test Item Value Reference Range Comments TOTAL PROTEIN (BEAKER) (test 6.8 gm/dL 6.0-8.3 Specimen slightly hemolyzed hfcy=269) ALBUMIN (BEAKER) (test 3.9 g/dL 3.5-5.0 Specimen slightly hemolyzed crck=1261) BILIRUBIN TOTAL (BEAKER) (test 0.3 mg/dL 0.2-1.2 Specimen slightly hemolyzed wggz=005) BILIRUBIN DIRECT (BEAKER) (test 0.1 mg/dL 0.1-0.5 Specimen slightly hemolyzed fslr=159) ALKALINE PHOSPHATASE (BEAKER) 84 U/L 40-150 (test xzae=846) AST (SGOT) (BEAKER) (test 14 U/L 5-34 Specimen slightly hemolyzed zfym=922) ALT (SGPT) (BEAKER) (test 21 U/L 6-55 Specimen slightly hemolyzed yljn=674) CBC W/PLT COUNT & AUTO [id number] 20:44:00 Test Item Value Reference Range Comments WHITE BLOOD CELL COUNT (BEAKER) (test elcs=123) 8.3 K/ L 3.5-10.5 RED BLOOD CELL COUNT (BEAKER) (test atwu=882) 4.58 M/ L 3.93-5.22 HEMOGLOBIN (BEAKER) (test vbqn=314) 14.7 GM/DL 11.2-15.7 HEMATOCRIT (BEAKER) (test anwr=205) 44.6 % 34.1-44.9 MEAN CORPUSCULAR VOLUME (BEAKER) (test fnnc=324) 97.4 fL 79.4-94.8 MEAN CORPUSCULAR HEMOGLOBIN (BEAKER) (test 32.1 pg 25.6-32.2 bwwp=228) MEAN CORPUSCULAR HEMOGLOBIN CONC (BEAKER) (test 33.0 GM/DL 32.2-35.5 gubh=469) RED CELL DISTRIBUTION WIDTH (BEAKER) (test 12.4 % 11.7-14.4 tdyx=250) PLATELET COUNT (BEAKER) (test ugvl=187) 109 K/CU MM 150-450 MEAN PLATELET VOLUME (BEAKER) (test ezos=098) 10.8 fL 9.4-12.3 NUCLEATED RED BLOOD CELLS (BEAKER) (test 0 /100 WBC 0-0 zokz=378) NEUTROPHILS RELATIVE PERCENT (BEAKER) (test 55 % wnye=377) LYMPHOCYTES RELATIVE PERCENT (BEAKER) (test 37 % gegs=631) MONOCYTES RELATIVE PERCENT (BEAKER) (test 6 % ptar=111) EOSINOPHILS RELATIVE PERCENT (BEAKER) (test 2 % lvrn=671) BASOPHILS RELATIVE PERCENT (BEAKER) (test 0 % rrsu=239) NEUTROPHILS ABSOLUTE COUNT (BEAKER) (test 4.51 K/ L 1.56-6.13 njqg=876) LYMPHOCYTES ABSOLUTE COUNT (BEAKER) (test 3.03 K/ L 1.18-3.74 btyp=991) MONOCYTES ABSOLUTE COUNT (BEAKER) (test 0.52 K/ L 0.24-0.36 yiga=209) EOSINOPHILS ABSOLUTE COUNT (BEAKER) (test 0.14 K/ L 0.04-0.36 rpuy=801) BASOPHILS ABSOLUTE COUNT (BEAKER) (test 0.03 K/ L 0.01-0.08 cppz=271) IMMATURE GRANULOCYTES-RELATIVE PERCENT (BEAKER) 0 % 0-1 (test nkwk=8021)
[2017-09-27 11:46] LABS: Absolute Monocytes 0.5 K/uL (0.1-1.3); Absolute Neutrophil 5.2 K/uL (1.8-8.0); Basophils % 0.5 % (0-1.3); Hematocrit 41.6 % (36.0-45.0); Lymphocytes % 25.3 % (15.3-44.8); MCH 32.6 pg (27.0-35.0); MCV 97.4 fL (80-100); MPV 9.9 fL (7.6-11.3); Monocytes % 6.2 % (3.3-12.3); RBC Red Blood Cell Count 4.27 M/uL (3.86-4.86)
--- NOTE | 2017-09-27 11:48 | RAD REPORT ---
EXAM DESCRIPTION: CT - Head Brain Wo Cont - 09/27/2017 11:38 am CLINICAL HISTORY: Headache and numbness COMPARISON: July 2017 TECHNIQUE: Computed axial tomography of the head was obtained. IV contrast was not requested. All CT scans are performed using dose optimization technique as appropriate and may include automated exposure control or mA/KV adjustment according to patient size. FINDINGS: An intracranial bleed is not seen . The ventricles are normal in caliber. No extra-axial fluid collection is noted. Low-density areas within the right frontal and right pariet al lobes likely represent old infarcts. Fluid within the sinuses/ mastoids is not seen. A mucus retention cyst is present within the right ma xillary sinus IMPRESSION: No acute intracranial abnormality is seen. If patient's symptoms persist MRI of the bra in would be recommended.
[2017-09-27 11:50] LABS: Protime INR 0.95
[2017-09-27 11:57] LABS: Bicarbonate 25 mEq/L (21-31); Glucose Level 203 mg/dL (65-120); Potassium 4.2 mEq/L (3.6-5.0); Sodium Level 137 mEq/L (135-145)
[2017-09-27 12:03] LABS: ALT/SGPT 22 IU/L (10-60); AST/SGOT 18 IU/L (10-42); Albumin 3.9 g/dL (3.2-5.5); Alkaline Phosphatase 72 IU/L (42-121); BUN Blood Urea Nitrogen 10 mg/dL (6-20); Bilirubin Direct 0.2 mg/dL (0-0.2); Creatine Phosphokinase 56 IU/L (22-269); Magnesium 1.6 mg/dL (1.8-2.5); Protein, Total 7.1 g/dL (6.0-8.3)
[2017-09-27 12:06] LABS: CKMB Creatine Kinase MB 0.7 ng/ml (0.3-4.0)
[2017-09-27] MEDS ORDERED: MAGNESIUM SULFATE 1 gm IVPB 1 GM/100 ML BAG IV ONE (12:23)
--- NOTE | 2017-09-27 12:37 | RAD REPORT ---
EXAM DESCRIPTION: Sha Single View09/27/2017 11:47 am CLINICAL HISTORY: Chest pain COMPARISON: July 2017 FINDINGS: The lungs appear clear of acute infiltrate. The heart is normal size IMPRESSION: No acute abnormalities displayed
--- NOTE | 2017-09-27 12:40 | EDPHYS ---
Physician Documentation [facility] Name: Yessica Martinez Age: 46 yrs Sex: Female : 1970 Arrival Date: 09/27/2017 Time: 10:41 Bed 7 Private MD: out of town, doctor ED Physician Og Kevin HPI: 09/27 11:02 This 46 yrs old Female presents to ER via Ambulatory with complaints of pm1 Numbness Of Left Hand, Numbness Of Left Side of Face. 11:02 The patient presents to the emergency department with paresthesias of the left lower pm1 extremity, Left hand. Left 5th finger, left side of the face, Upper lip. Onset: The symptoms/episode began/occurred last night, at 13:09. Context: occurred at home. Associated signs and symptoms: Pertinent positives: headache, Right side of forehead, Pertinent negatives: dizziness, nausea, seizure, visual field changes, loss of vision, weakness. Severity of symptoms: in the emergency department the symptoms have resolved and did so just prior to arrival. Patient's baseline: Neuro: alert and fully oriented, Motor: no deficits, Ambulation: walks without assistance, Speech: normal, The patient has a previous history of CVA, 08/02/2017. Current symptoms: Currently, the patient is not experiencing any symptoms, the patient feels back to baseline. The patient has experienced a previous episode, approximately 2 months ago. The patient has been recently seen by a physician: the patient's primary care provider, Check up, adjustment of insulin. At 2000 last night, patient with onset of right sided headache with heaviness to bilateral cheeks numbness to left upper lip and left 5 th finger. 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 - Social history:: Smoking status: Patient/guardian denies using tobacco. - Ebola Screening: : No symptoms or risks identified at this time. ROS: 11:02 Constitutional: Negative for fever, chills, and weight loss, Eyes: Negative for injury, pm1 pain, redness, and discharge, ENT: Negative for injury, pain, and discharge, Neck: Negative for injury, pain, and swelling, Cardiovascular: Negative for chest pain, palpitations, and edema, Respiratory: Negative for shortness of breath, cough, wheezing, and pleuritic chest pain, Abdomen/GI: Negative for abdominal pain, nausea, vomiting, diarrhea, and constipation, Back: Negative for injury and pain, MS/Extremity: Negative for injury and deformity, Skin: Negative for injury, rash, and discoloration. 11:02 Neuro: Positive for Headache right sided. Left face and left hand numbness, Negative for altered mental status, dizziness, seizure activity, weakness. Exam: 11:02 Constitutional: This is a well developed, well nourished patient who is awake, alert, pm1 and in no acute distress. Head/Face: Normocephalic, atraumatic. Eyes: Pupils equal round and reactive to light, extra-ocular motions intact. Lids and lashes normal. Conjunctiva and sclera are non-icteric and not injected. Cornea within normal limits. Periorbital areas with no swelling, redness, or edema. ENT: Nares patent. No nasal discharge, no septal abnormalities noted. Tympanic membranes are normal and external auditory canals are clear. Oropharynx with no redness, swelling, or masses, exudates, or evidence of obstruction, uvula midline. Mucous membranes moist. Neck: Trachea midline, no thyromegaly or masses palpated, and no cervical lymphadenopathy. Supple, full range of motion without nuchal rigidity, or vertebral point tenderness. No Meningismus. Chest/axilla: Normal chest wall appearance and motion. Nontender with no deformity. No lesions are appreciated. 11:02 Respiratory: Lungs have equal breath sounds bilaterally, clear to auscultation and percussion. No rales, rhonchi or wheezes noted. No increased work of breathing, no retractions or nasal flaring. Abdomen/GI: Soft, non-tender, with normal bowel sounds. No distension or tympany. No guarding or rebound. No evidence of tenderness throughout. Back: No spinal tenderness. No costovertebral tenderness. Full range of motion. Skin: Warm, dry with normal turgor. Normal color with no rashes, no lesions, and no evidence of cellulitis. MS/ Extremity: Pulses equal, no cyanosis. Neurovascular intact. Full, normal range of motion. 11:02 Cardiovascular: Rate: normal, Rhythm: regular, Pulses: no pulse deficits are appreciated, Heart sounds: normal, Edema: is not appreciated. 11:02 Neuro: Orientation: is normal, Mentation: is normal, Cranial nerves: CN II- XII are normal as tested, Cerebellar function: normal finger to nose testing, heel to valencia testing is normal, Motor: moves all fours, strength is 5/5 in all extremities, Sensation: is normal, no obvious gross deficits. Vital Signs: 10:44 BP 142 / 99; Pulse 83; Resp 18; Temp 97.8; Pulse Ox 98% on R/A; Pain 8/10; hb 14:30 BP 126 / 77; Pulse 58; Resp 16; Pulse Ox 97% ; jl7 NIH Stroke Scale Scores: 11:00 NIHSS Score: 0 jl7 11:02 NIHSS Score: 0 pm1 MDM: 11:00 Patient medically screened. adrien 11:02 ED course: Not a TPA candidate due to NIHSS = 0 and onset of symptoms at 2000 last pm1 night (greater than 3 hours). 12:55 Physician consultation: Physician consultation: [facility] Neurologist Dr. Arellano was called at pm1 12:50, was contacted at 12:50, regarding regarding transfer, patient's condition, For continuity of care due to prior CVA work up in the past 2 months, recommends [facility] transfer if the patient is willing to go there. If the patient does not want to go to [facility], he will accept the patient at [facility]. 13:00 Data reviewed: vital signs. Data interpreted: Pulse oximetry: on room air is 98 %. pm1 Interpretation: normal. 13:15 Physician consultation: [facility] Neurologist Dr. Serra was contacted at 13:15, pm1 regarding regarding transfer, patient's condition, Recommends patient to be discharged to follow up with neurologist on outpatient basis and increase Aspirin from 81 mg daily to 325 mg. Discussed recommendations by neurologist at [facility] with my attending physician and he does not recommend the patient to be discharged with an increase in aspirin because the patient needs a MRI and evaluation by neurologist. Discussed recommendations of [facility] neurologist with patient and she would like to go to [facility]. 09/27 11:02 Order name: Basic Metabolic Panel; Complete Time: 12:07 pm09/27 11:02 Order name: BNP; Complete Time: 12:04 pm09/27 11:02 Order name: CBC with Diff; Complete Time: 11:52 pm09/27 11:02 Order name: Ckmb; Complete Time: 12:07 pm09/27 11:02 Order name: CPK; Complete Time: 12:07 pm09/27 11:02 Order name: LFT's; Complete Time: 12:07 pm09/27 11:02 Order name: Magnesium; Complete Time: 12:07 pm09/27 11:02 Order name: PT-INR; Complete Time: 11:52 pm09/27 11:02 Order name: Ptt, Activated; Complete Time: 11:52 pm09/27 11:02 Order name: Troponin (emerg Dept Use Only); Complete Time: 12:03 pm09/27 11:02 Order name: XRAY Chest (1 view); Complete Time: 12:40 pm09/27 11:02 Order name: CT Head Brain wo Cont; Complete Time: 11:52 pm09/27 13:26 Order name: Urine Dipstick--Ancillary (enter results); Complete Time: 14:32 bd 09/27 11:02 Order name: Urine Test (obtain specimen); Complete Time: 13:23 pm09/27 11:02 Order name: EKG; Complete Time: 11:02 pm09/27 11:02 Order name: Cardiac monitoring; Complete Time: 11:39 pm09/27 11:02 Order name: EKG - Nurse/Tech; Complete Time: 11:39 pm09/27 11:02 Order name: IV Saline Lock; Complete Time: 11:39 pm09/27 11:02 Order name: Labs collected and sent; Complete Time: 11:39 pm09/27 11:02 Order name: O2 Per Protocol; Complete Time: 11:39 pm09/27 11:02 Order name: O2 Sat Monitoring; Complete Time: 11:39 pm1 09/27 11:02 Order name: Urine Dipstick-Ancillary (obtain specimen); Complete Time: 11:52 pm1 Administered Medications: 12:25 Drug: Magnesium Sulfate 1 grams Route: IVPB; Infused Over: 1 hrs; Site: right jl7 antecubital; 13:30 Follow up: IV Status: Completed infusion jl7 12:49 Drug: PlaVIX 75 mg Route: PO; aa5 14:33 Follow up: Response: No adverse reaction jl7 12:50 Drug: Aspirin 162 mg Route: PO; aa5 14:33 Follow up: Response: No adverse reaction jl7 12:50 Drug: Aspirin 81 mg Route: PO; aa5 14:33 Follow up: Response: No adverse reaction jl7 Disposition: 09/28 14:07 Co-signature as Attending Physician, Og Kevin MD I agree with the assessment and adrien plan of care. Disposition: 09/27/17 12:39 Transfer ordered to [facility]. Diagnosis is Cerebral infarction - vs TIA. - Reason for transfer: Higher level of care. - Accepting physician is [facility] Sascha Arellano. - Condition is Stable. - Problem is new. - Symptoms are resolved. NIH Stroke Scale - NIH Stroke Score Date: 09/27/2017 Time: 11:00 Total Score = 0 1a. Level of Consciousness (LOC) - 0(Alert) 1b. Level of Consciousness (LOC) (Year \T\ Age) - 0(Both) 1c. LOC Commands (Open \T\ Closes Eyes/Sewer Hand) - 0(Both) 2. Best Gaze (Lateral Gaze Paresis) - 0(Normal) 3. Visual Field Loss - 0(No visual loss) 4. Facial Palsy - 0(Normal) 5a. Left Arm: Motor (10-second hold) - 0(No drift) 5b. Right Arm: Motor (10-second hold) - 0(No drift) 6a. Left Leg: Motor (5-second hold - always test supine) - 0(No drift) 6b. Right Leg: Motor (5-second hold - always test supine) - 0(No drift) 7. Limb Ataxia (finger/nose \T\ heel/valencia - test with eyes open) - 0(Absent) 8. Sensory Loss (pinprick arms/legs/face) - 0(Normal) 9. Best Language: Aphasia (description/naming/reading) - 0(No aphasia) 10. Dysarthria (speech clarity - read or repeat words) - 0(Normal) 11. Extinction and Inattention (visual/tactile/auditory/spatial/personal) - 0(No abnormality) Initials: jl7 NIH Stroke Scale - NIH Stroke Score Date: 09/27/2017 Time: 11:02 Total Score = 0 1a. Level of Consciousness (LOC) - 0(Alert) 1b. Level of Consciousness (LOC) (Year \T\ Age) - 0(Both) 1c. LOC Commands (Open \T\ Closes Eyes/Sewer Hand) - 0(Both) 2. Best Gaze (Lateral Gaze Paresis) - 0(Normal) 3. Visual Field Loss - 0(No visual loss) 4. Facial Palsy - 0(Normal) 5a. Left Arm: Motor (10-second hold) - 0(No drift) 5b. Right Arm: Motor (10-second hold) - 0(No drift) 6a. Left Leg: Motor (5-second hold - always test supine) - 0(No drift) 6b. Right Leg: Motor (5-second hold - always test supine) - 0(No drift) 7. Limb Ataxia (finger/nose \T\ heel/valencia - test with eyes open) - 0(Absent) 8. Sensory Loss (pinprick arms/legs/face) - 0(Normal) 9. Best Language: Aphasia (description/naming/reading) - 0(No aphasia) 10. Dysarthria (speech clarity - read or repeat words) - 0(Normal) 11. Extinction and Inattention (visual/tactile/auditory/spatial/personal) - 0(No abnormality) Initials: pm1 Signatures: Dispatcher [employer] Og Ewing MD MD cha Calderon, Audri, RN RN aa5 Sean Real, CARTOON ARTIST CARTOON ARTIST pm1 Yulisa Jensen RN RN hb Leal, Jahala, RN RN jl7 Corrections: (The following items were deleted from the chart) 09/27 11:13 10:49 Home Meds: atorvastatin 80 mg oral tab; jl7 11:13 10:49 Home Meds: gabapentin 100 mg Oral cap twice a day; jl7 11:13 10:49 Home Meds: glyburide 2.5 mg Oral tab 1 tab 2 times per day; jl7 12:58 12:39 09/27/2017 12:39 Transfer ordered to [facility]. Diagnosis is pm1 Cerebral infarction. Reason for transfer: Higher level of care. Accepting physician is [facility]. Condition is Stable. Problem is new. Symptoms are resolved. pm1 13:42 12:58 09/27/2017 12:39 Transfer ordered to [facility]. pm1 Diagnosis is Cerebral infarction - vs TIA. Reason for transfer: Higher level of care. Accepting physician is [facility]. Condition is Stable. Problem is new. Symptoms are resolved. pm1 14:34 13:42 09/27/2017 12:39 Transfer ordered to [facility]. Diagnosis is jl7 Cerebral infarction - vs TIA. Reason for transfer: Higher level of care. Accepting physician is [facility] Sascha Arellano. Condition is Stable. Problem is new. Symptoms are resolved. pm1
--- NOTE | 2017-09-27 12:40 | ER ---
Nurse's Notes [facility] Name: Yessica Martinez Age: 46 yrs Sex: Female : 1970 Arrival Date: 09/27/2017 Time: 10:41 Bed 7 Private MD: out of town, doctor Diagnosis: Cerebral infarction-vs TIA Presentation: 09/27 10:44 Presenting complaint: Patient states: Lip numbness, cheek "heaviness" and headache hb since yesterday at 8pm. Hx stroke, DM2. 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 Transition of care: patient was not received from another setting of care. Onset of symptoms was September 26, 2017 at 20:00. Risk Assessment: Do you want to hurt yourself or someone else? Patient reports no desire to harm self or others. Care prior to arrival: None. 10:44 Method Of Arrival: Ambulatory hb 10:44 Acuity: BECCA 3 hb 11:00 Initial Sepsis Screen: Does the patient meet any 2 criteria? No. Patient's initial jl7 sepsis screen is negative. Does the patient have a suspected source of infection? No. Patient's initial sepsis screen is negative. 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 - Social history:: Smoking status: Patient/guardian denies using tobacco. - Ebola Screening: : No symptoms or risks identified at this time. Screenin:02 Abuse screen: Denies threats or abuse. Denies injuries from another. Nutritional jl7 screening: No deficits noted. Tuberculosis screening: No symptoms or risk factors identified. Fall Risk Secondary diagnosis (15 points) CVA, IV access (20 points). Total Wilson Fall Scale indicates Low Risk Score (25-44 pts). Fall prevention measures have been instituted. Side Rails Up X 2 Placed close to Nursing Station Frequent Obs/Assesments occuring Family Present and informed to notify staff if they need to leave bedside As available Patient and Family Educated on Fall Prevention Program and strategies. 11:20 The patient has not been NPO before screening. The patient is currently on the jl7 following diet: regular The patient is alert, able to follow commands. The patient does not exhibit slurred or garbled speech The patient is not exhibiting difficulty speaking. The patient does not exhibit difficulty understanding words. The patient is able to swallow own secretions with no drooling or need for suction. Patient tolerated one teaspoon of water. No drooling, immediate coughing, gurgling, or clearing of the throat was noted. The patient tolerated 90mL of water. No drooling, immediate coughing, gurgling, or clearing of the throat was noted. The patient passed the bedside swallow screening. Oral medications may be given as ordered. Contact Physician for further diet orders. Provider notified of bedside swallow screening results: Sean Real LAYBOY OPERATOR. Assessment: 11:02 General: Appears in no apparent distress. uncomfortable, Behavior is calm, cooperative, jl7 appropriate for age. Pain: Denies pain. Neuro: Level of Consciousness is awake, alert, obeys commands, Oriented to person, place, time, situation, Senior Quality Technician are equal bilaterally Moves all extremities. Gait is steady, Speech is normal, Facial symmetry appears normal, Pupils are PERRLA. Cardiovascular: Heart tones present Patient's skin is warm and dry. Respiratory: Airway is patent Respiratory effort is even, unlabored, Respiratory pattern is regular, symmetrical. GI: No signs and/or symptoms were reported involving the gastrointestinal system. : No signs and/or symptoms were reported regarding the genitourinary system. EENT: No signs and/or symptoms were reported regarding the EENT system. Derm: Skin is pink, warm \\T\\ dry. Musculoskeletal: No signs and/or symptoms reported regarding the musculoskeletal system. 12:20 Reassessment: Provider at bedside discussing plan of care. jl7 12:50 Reassessment: Patient and/or family updated on plan of care and expected duration. Pain aa5 level reassessed. Patient is alert, oriented x 3, equal unlabored respirations, skin warm/dry/pink. Vital Signs: 10:44 BP 142 / 99; Pulse 83; Resp 18; Temp 97.8; Pulse Ox 98% on R/A; Pain 8/10; hb 14:30 BP 126 / 77; Pulse 58; Resp 16; Pulse Ox 97% ; jl7 NIH Stroke Scale Scores: 11:00 NIHSS Score: 0 jl7 11:02 NIHSS Score: 0 pm1 ED Course: 10:41 Patient arrived in ED. mr 10:41 out of town, doctor is Private Physician. mr 10:48 Triage completed. hb 10:49 Arm band placed on right wrist. hb 10:51 Emmett Jose, LATRICIA is Primary Nurse. jl7 10:53 Sean Real, CAREN is PHCP. pm1 10:53 Og Kevin MD is Attending Physician. pm1 11:02 Patient has correct armband on for positive identification. Placed in gown. Bed in low jl7 position. Call light in reach. Side rails up X 1. hall monitor on. Pulse ox on. NIBP on. Warm blanket given. 11:32 Initial lab(s) drawn, by ED staff, EKG done, by ED staff. Inserted saline lock: 22 jp3 gauge in right antecubital area, using aseptic technique. 11:38 CT Head Brain wo Cont In Process Unspecified. EDMS 11:38 CT completed. Patient tolerated procedure well. Patient moved to radiology. bq 11:46 XRAY Chest (1 view) In Process Unspecified. EDMS 13:05 Urine collected: clean catch specimen, clear, cloudy. jp3 13:22 Urine collected: clean catch specimen. jp3 14:30 No provider procedures requiring assistance completed. Patient transferred, IV remains jl7 in place. intact, No redness/swelling at site. Administered Medications: 12:25 Drug: Magnesium Sulfate 1 grams Route: IVPB; Infused Over: 1 hrs; Site: right jl7 antecubital; 13:30 Follow up: IV Status: Completed infusion jl7 12:49 Drug: PlaVIX 75 mg Route: PO; aa5 14:33 Follow up: Response: No adverse reaction jl7 12:50 Drug: Aspirin 162 mg Route: PO; aa5 14:33 Follow up: Response: No adverse reaction jl7 12:50 Drug: Aspirin 81 mg Route: PO; aa5 14:33 Follow up: Response: No adverse reaction jl7 Outcome: 12:39 ER care complete, transfer ordered by MD. mcgraw 14:30 Transferred by ground EMS to [facility], Transfer form jl7 completed. 14:30 Condition: stable 14:30 Discharge instructions given to patient, Instructed on the need for transfer, Demonstrated understanding of instructions. 14:34 Patient left the ED. jl7 NIH Stroke Scale - NIH Stroke Score Date: 09/27/2017 Time: 11:00 Total Score = 0 1a. Level of Consciousness (LOC) - 0(Alert) 1b. Level of Consciousness (LOC) (Year \\T\\ Age) - 0(Both) 1c. LOC Commands (Open \\T\\ Closes Eyes/Enlisted Advisor) - 0(Both) 2. Best Gaze (Lateral Gaze Paresis) - 0(Normal) 3. Visual Field Loss - 0(No visual loss) 4. Facial Palsy - 0(Normal) 5a. Left Arm: Motor (10-second hold) - 0(No drift) 5b. Right Arm: Motor (10-second hold) - 0(No drift) 6a. Left Leg: Motor (5-second hold - always test supine) - 0(No drift) 6b. Right Leg: Motor (5-second hold - always test supine) - 0(No drift) 7. Limb Ataxia (finger/nose \\T\\ heel/valencia - test with eyes open) - 0(Absent) 8. Sensory Loss (pinprick arms/legs/face) - 0(Normal) 9. Best Language: Aphasia (description/naming/reading) - 0(No aphasia) 10. Dysarthria (speech clarity - read or repeat words) - 0(Normal) 11. Extinction and Inattention (visual/tactile/auditory/spatial/personal) - 0(No abnormality) Initials: jl7 NIH Stroke Scale - NIH Stroke Score Date: 09/27/2017 Time: 11:02 Total Score = 0 1a. Level of Consciousness (LOC) - 0(Alert) 1b. Level of Consciousness (LOC) (Year \\T\\ Age) - 0(Both) 1c. LOC Commands (Open \\T\\ Closes Eyes/Enlisted Advisor) - 0(Both) 2. Best Gaze (Lateral Gaze Paresis) - 0(Normal) 3. Visual Field Loss - 0(No visual loss) 4. Facial Palsy - 0(Normal) 5a. Left Arm: Motor (10-second hold) - 0(No drift) 5b. Right Arm: Motor (10-second hold) - 0(No drift) 6a. Left Leg: Motor (5-second hold - always test supine) - 0(No drift) 6b. Right Leg: Motor (5-second hold - always test supine) - 0(No drift) 7. Limb Ataxia (finger/nose \\T\\ heel/valencia - test with eyes open) - 0(Absent) 8. Sensory Loss (pinprick arms/legs/face) - 0(Normal) 9. Best Language: Aphasia (description/naming/reading) - 0(No aphasia) 10. Dysarthria (speech clarity - read or repeat words) - 0(Normal) 11. Extinction and Inattention (visual/tactile/auditory/spatial/personal) - 0(No abnormality) Initials: pm1 Signatures: Dispatcher [employer] EDDE Starr Alicia mr Sachin, Taylor Blanco RN RN aa5 Sean Real, LAYBOY OPERATOR LAYBOY OPERATOR pm1 Yulisa Jensen RN RN Emmett Jose RN RN jl7 Yayo Guillory jp3 Corrections: (The following items were deleted from the chart) 10:50 10:44 Presenting complaint: Patient states: Lip numbness, cheek "heaviness" and hb headache since yesterday at 8pm. Hx stroke, DM2. 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 11:13 10:49 Home Meds: atorvastatin 80 mg oral tab; [facility] 11: 10:49 Home Meds: gabapentin 100 mg Oral cap twice a day; jl7 11:13 10:49 Home Meds: glyburide 2.5 mg Oral tab 1 tab 2 times per day; jl7
[2017-09-27] MEDS ORDERED: ASPIRIN 81 MG CHEWABLE TABLET ONE (12:50)
[2017-09-27] MEDS ORDERED: CLOPIDOGREL 75 MG TABLET ONE (12:50)
[2017-09-27 14:06] LABS: Urine Blood NEGATIVE (NEG); Urine Glucose NEGATIVE (NEG); Urine Protein NEGATIVE (NEG); Urine Specific Gravity <1.005 (1.005-1.030); Urine pH 5.5 (5.0-7.0)
--- NOTE | 2017-09-28 06:31 | EKG ---
Test Date: 2017-09-27 Test Time: 11:02:13 Explosives Worker: PEDRO MEASUREMENT RESULTS: Intervals: Rate: 62 DE: 134 QRSD: 88 QT: 424 QTc: 430 Trion: P: 32 DE: 134 QRS: 22 T: 46 INTERPRETIVE STATEMENTS: Normal sinus rhythm Low voltage QRS Borderline ECG Compared to ECG 08/02/2017 10:19:29 Low QRS voltage now present Sinus bradycardia no longer present Electronically Signed On 09-28-17 06:29:55 CDT by Mendoza Tenorio
== END 2017-09-27 14:34 | disposition short-term general hospital (02) ==
LOC: ER 10:37
DX: I63.9 Cerebral infarction, unspecified (principal); E11.9 Type 2 diabetes mellitus without complications; Z79.82 Long term (current) use of aspirin; Z86.73 Personal history of transient ischemic attack (TIA), and cerebral infarction without residual deficits
CPT/HCPCS: 36415; 70450; 71045; 80048; 80076; 81003; 82550; 82553; 83735; 83880; 84484; 85025; 85610; 85730; 93005; 96365; 99285; J3475

== ENCOUNTER 2019-03-31 08:19 | Emergency (ER) | payer SELFPAY ==
--- OUTSIDE RECORDS SUMMARY | 2019-03-31 08:22 | XMS REPORT | Encounter Summary ---
:1970 Author Care Team Providers Name Role Phone Vicki Chapa ([facility]) Primary Care Provider [phone] Reason for Visit Diabetes mellitus; lab follow-up Instructions 1. Diabetes mellitus glucose, fingerstick, blood Tresiba FlexTouch U-200 insulin 200 unit/mL (3 mL) subcutaneous pen 2. Osteoarthritis arthritis: care instructions osteoarthritis: care instructions 3. History of cerebrovascular accident without residual deficits 4. Mammography abnormal stereotactic breast biopsy: about this test Discussion Note: None recorded. 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 Procedures None recorded. Surgeries None recorded. Imaging None recorded. Medications Name Start Date Aspir-81 mg tablet,delayed release Take 1 tablet every day by oral route. clopidogrel 75 mg tablet TAKE 1 TABLET BY MOUTH EVERY DAY Farxiga 10 mg tablet Take 1 tablet every day by oral route. gabapentin 300 mg capsule TAKE 1 CAPSULE BY MOUTH TWICE DAILY Januvia 100 mg tablet TAKE 1 TABLET BY MOUTH EVERY DAY Lipitor 80 mg tablet Take 1 tablet every day by oral route. metformin 500 mg tablet Take 1 tablet(s) twice a day by oral route. Tresiba FlexTouch U-200 insulin 200 unit/mL (3 mL) subcutaneous pen Inject 80 units every day by subcutaneous route. Medications Administered None recorded. Vitals Height Weight BMI Blood Pressure 5 ft 3 in 196.9 lbs 34.9 kg/m2 115/77 mm[Hg] Results Lab Results Date Name Specimen Result Interpretation Description Value Range Status Address 02/28/2019 Glucose, Blood [address] [facility] Fingerstick, Glucose: Medical: Blood mg/dl [address], [place] Allergies Code Code System Name Reaction Severity Status Onset NKDA Problems Name Status Onset Date Source Cerebrovascular Accident Active 07/23/2017 Thrombocytopenic Disorder Active 10/27/2017 Tobacco User Active 08/30/2018 Multiple Joint Pain Active 01/26/2019 Mammography Abnormal Active 02/23/2019 Diabetes Mellitus Active Obesity Active Hypermetropia Active Presbyopia Active Eye Disorder Screening Active Procedures Date Name Performed by 12/14/1999 Delivery Information not available 05/31/1997 Delivery Information not available Tubal Ligation Information not available 02/23/2019 US, Breast [facility] [address] [place] [address] (Work [address]) Vaccine List Vaccine Type influenza, injectable, quadrivalent, preservative free 01/26/20190.5 mL pneumococcal conjugate PCV 13 09/23/2017 Tdap 09/23/2017 Social History Tobacco Smoking Status Heavy Tobacco Smoker (1 PPD) Past Encounters 02/28/2019 Diabetes Mellitus; Osteoarthritis; History of Cerebrovascular Accident without Residual Deficits; Mammography Abnormal 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 [phone] History of Present Illness Diabetes F/U Reported By: Patient HPI: Review finger sticks: post breakfast: 192. Labs: last A1C result: 8.4. Context: seeing eye doctor regularly, checking feet regularly, taking aspirin daily, not missing doses of medications, no side effects from medications. Associated Symptoms: no weight gain, no weight loss, no dizziness, no sweats, no headaches, no confusion, no increased thirst, no increased appetite, no increased urination, no blurred vision, no calluses on feet, numbness of feet Joint & Soft Tissue Pain Reported By: Patient HPI: Location: bilateral. Quality: throbbing, dull. Timing: frequent. Severity: moderate. Duration: 6 months. Alleviating Factors: NSAIDS. Aggravating Factors: cold weather. Associated Symptoms: no weakness, no numbness, no tingling, no swelling, no redness, no warmth, no ecchymosis, no catching/locking, no popping/clicking, no buckling, no grinding, no instability, no radiation down leg, no fever/chills, no weight loss, no change in bowel/bladder habits Note: <p>Pt is here to f/u on DMII & labs, RBS is 192..ap</p ><p>
</p><p></p><p></p><p> pt has hx of type ii dm. she has also had stroke in past and is current everyday smoker. she had recent labs done. her hba1c has changed from 8.8 to 8.4. farxiga was increased to 10mg on 01/26/19. she is noncompliant with diet and exercise. I tried to change her from levemir to tresiba few months ago but she did not provide proof of income. </p><p>
</p>< p>
</p> Review of Systems Comprehensive Adult Problem ROS, Diabetes F/U ROS Reported By: Patient Constitutional: Constitutional: no significant weight change, good appetite, no fever, normal activity level. Extremities: no ulcers Eyes: Eyes: ; Pt seeing eye doctor regularly and wears corrective lenses Cardiovascular: Cardiovascular: no SOB, no palpitations, no intermittent claudication Respiratory: Respiratory: no cough, no wheezing, no chest tightness, no pain with respiration, normal respiration Gastrointestinal: Gastrointestinal: no nausea, no vomiting, no constipation, no diarrhea Musculoskeletal: Musculoskeletal: no soft tissue swelling, no joint swelling, no myalgia, moves all extremities well, no previous injuries, no trauma Skin: Skin: no skin dryness, no hives, no skin lesions Neurological symptoms: Neuro: no numbness, no weakness, no tingling, no burning, no shooting pain, no headache, no dizziness, no loss of consciousness. Neurological: no burning, no dizziness Exercises: Exercises: Type:None Diet: Diet: not following diet Constitutional: Constitutional: no night sweats, no significant weight loss, no exercise intolerance Notes: <p>
</p> Physical Exam General Adult Exam, Musculoskeletal and Joint Exam Reported By: Patient Constitutional: General Appearance: healthy-appearing, well-developed, obese. Level of Distress: NAD. Ambulation: ambulating normally Psychiatric: Insight: good judgement. Mental Status: active and alert; Mildly anxious. Orientation: to time, to place, to person Head: Head: normocephalic, atraumatic Neck: Lymph Nodes: no cervical LAD Lungs: Respiratory effort: no dyspnea. Auscultation: breath sounds normal, no wheezing, no rales/crackles Cardiovascular: Heart Auscultation: RRR, no murmurs Abdomen: Inspection and Palpation: soft, non-distended, no tenderness Neurologic: Gait and Station: normal gait, normal station. Cranial Nerves: grossly intact. Sensation: grossly intact. Coordination and Cerebellum: no tremor Back: Thoracolumbar Appearance: normal curvature Notes: <p></p>
--- OUTSIDE RECORDS SUMMARY | 2019-03-31 08:22 | XMS REPORT | Encounter Summary ---
:1970 Author Care Team Providers Name Role Phone Vicki Chapa ([facility]) Primary Care Provider [phone] Reason for Visit Diabetes mellitus Instructions 1. Diabetes mellitus CMP, serum or plasma HbA1c (hemoglobin A1c), blood Farxiga 10 mg tablet 2. Multiple joint pain rf (rheumatoid factor), serum GERSON (antinuclear antibodies) screen, serum ESR (erythrocyte sedimentation rate), blood C reactive protein, QN, serum or plasma Mobic 15 mg tablet 3. Screening for malignant neoplasm of breast learning about breast cancer screening MAMMO, screening, digital, bilateral 4. Immunization Flulaval Quad (PF) 60 mcg (15 mcg x 4)/0.5 mL IM syringe Discussion Note: None recorded. Plan of Care Reminders Provider Appointments Est Pt Vicki Da Silva 02/28/2019 CAREN Chapa 7:30AM Lab CMP, Serum or [facility] Plasma 01/26/2019 HbA1C [facility] (Hemoglobin a1C), Blood 01/26/2019 Rf (Rheumatoid [facility] Factor), Serum 01/26/2019 GERSON (Antinuclear [facility] Antibodies) Screen, Serum 01/26/2019 ESR (Erythrocyte [facility] Sedimentation Rate), Blood 01/26/2019 C Reactive [facility] Protein, QN, Serum or 01/26/2019 Plasma Referral None recorded. Procedures None recorded. Surgeries None recorded. Imaging MAMMO, Screening, Digital, 01/26/2019 Bilateral Medications Name Start Date Aspir-81 mg tablet,delayed release Take 1 tablet every day by oral route. clopidogrel 75 mg tablet TAKE 1 TABLET BY MOUTH EVERY DAY Farxiga 10 mg tablet Take 1 tablet every day by oral route. gabapentin 300 mg capsule TAKE 1 CAPSULE BY MOUTH TWICE DAILY Januvia 100 mg tablet TAKE 1 TABLET BY MOUTH EVERY DAY Levemir FlexTouch U-100 Insulin 100 unit/mL (3 mL) subcutaneous pen ADMINISTER 75 UNITS UNDER THE SKIN EVERY DAY Lipitor 80 mg tablet Take 1 tablet every day by oral route. metformin 500 mg tablet Take 1 tablet(s) twice a day by oral route. Mobic 15 mg tablet Take 1 tablet every day by oral route. Medications Administered None recorded. Vitals Height Weight BMI Blood Pressure 5 ft 3 in 199.6 lbs 35.4 kg/m2 (1) 126/90 mm[Hg] (2) 124/80 mm[Hg] Results Lab Results Date Name Specimen Result Interpretation Description Value Range Status Address 01/26/2019 CMP, Serum or Above Glucose 170 mg/dL 65-99 Final [facility] Plasma High mg/dL [facility]: [facility] Normal [address] Bun 13 mg/dL 6-24 Final [facility] mg/dL PSC: [facility] [address] Creatinine 0.76 0.57-1.00 Final [facility] mg/dL mg/dL PSC: [address] eGFR If 94 >59 Final [facility] Nonafricn AM mL/min/1. mL/min/1. P[facility]: [facility] [address] eGFR If 108 >59 Final [facility] Africn AM mL/min/1. mL/min/1. PSC: [facility] [address] BUN/creatinin 17 9-23 Final [facility] e Ratio PSC: [address] Sodium 144 134-144 Final [facility] mmol/L mmol/L PSC: [address] Potassium 4.9 3.5-5.2 Final [facility] mmol/L mmol/L PSC: [address] Chloride 103 96-106 Final [facility] mmol/L mmol/L PSC: [address] Carbon 21 mmol/L 20-29 Final [facility] Dioxide, Total mmol/L PSC: [address] Calcium 9.7 mg/dL 8.7-10.2 Final [facility] mg/dL PSC: [address] Protein, 7.1 g/dL 6.0-8.5 Final [facility] Total g/dL PSC: [address] Albumin 4.5 g/dL 3.5-5.5 Final [facility] g/dL PSC: [address] Globulin, 2.6 g/dL 1.5-4.5 Final [facility] Total g/dL PSC: [address] A/g Ratio 1.7 1.2-2.2 Final [facility] PSC: [address] Bilirubin, 0.3 mg/dL 0.0-1.2 Final [facility] Total mg/dL PSC: [address] Alkaline 93 IU/L 39-117 Final [facility] Phosphatase IU/L PSC: [address] Ast (Sgot) 23 IU/L 0-40 IU/L Final [facility] PSC: [address] Alt (Sgpt) 25 IU/L 0-32 IU/L Final [facility] PSC: [address] 01/26/2019 HbA1C Above Hemoglobin 8.4 % 4.8-5.6 % Final [facility] (Hemoglobin High a1C PSC: 720 a1C), Blood Normal [address] Estim. Avg 194 mg/dL Final [facility] Glu (EAG) PSC: [address] 01/26/2019 Rf (Rheumatoid RA Latex <10.0 0.0-13.9 Final [facility] Factor), Serum Turbid. IU/mL IU/mL PSC: [address] 01/26/2019 GERSON GERSON Direct negative negative Final [facility] (Antinuclear PSC: 720 Antibodies) [place] Screen, Serum [address] 01/26/2019 ESR Sedimentation 17 mm/HR 0-32 Final [facility] (Erythrocyte Rate-westergre mm/HR PSC: [address] Rate), Blood [address] 01/26/2019 C Reactive C-reactive 3 mg/L 0-10 mg/L Final [facility] Protein, QN, Protein, Quant PSC: [address] Serum or Plasma [address] 01/26/2019 Diabetes Pdf Image . Final [facility] [employer] Education n: [address], [place] Allergies Code Code System Name Reaction Severity Status Onset NKDA Problems Name Status Onset Date Source Cerebrovascular Accident Active 07/23/2017 Thrombocytopenic Disorder Active 10/27/2017 Tobacco User Active 08/30/2018 Multiple Joint Pain Active 01/26/2019 Diabetes Mellitus Active Obesity Active Hypermetropia Active Presbyopia Active Eye Disorder Screening Active Procedures Date Name Performed by 12/14/1999 Delivery Information not available 05/31/1997 Delivery Information not available Tubal Ligation Information not available 01/26/2019 MAMMO, Screening, Digital, Bilateral Information not available Vaccine List Vaccine Type influenza, injectable, quadrivalent, preservative free 01/26/20190.5 mL pneumococcal conjugate PCV 13 09/23/2017 Tdap 09/23/2017 Social History Tobacco Smoking Status Heavy Tobacco Smoker (1 PPD) Past Encounters 01/26/2019 Diabetes Mellitus; Multiple Joint Pain; Screening for Malignant Neoplasm of Breast; Immunization 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 History of Present Illness Diabetes F/U Reported By: Patient HPI: Review finger sticks: fasting: . Labs: last A1C result: 8.8; 09/30/18. Context: seeing eye doctor regularly, checking feet [...] Note: <p>Pt is here to f/u on DMII, she is wanting 3 mth supply on Farxiga, pt c/o pain in fingers..ap</p><p>
</p><p& gt;
</p><p>
</p><p></p><p> </p><p>pt has hx of type ii dm. she has also had stroke in past and is current everyday smoker.her last hba1c was 8.8 on 09/30/18. farxiga 5mg was added and shereturns with bs staying in 160 range. she is noncompliant with diet and exercise. I tried to changeher from levemir to tresiba previous visit but she did not provide proof of income. she c/o pain inshoulders and hands. & lt;/p><p>
</p><p>
</p> Review of Systems Comprehensive Adult Problem [...]
--- OUTSIDE RECORDS SUMMARY | 2019-03-31 08:22 | XMS REPORT ---
:1970 [facility] [address] [place] [address] [address]. [address] [place] [address] Care Team Providers Name Role Phone CANDI BAKER Unavailable Unavailable Problems This patient has no known problems. Allergies, Adverse Reactions, Alerts This patient has no known allergies or adverse reactions. Medications This patient has no known medications. Results Test Description Test Time Test Comments Text Results Atomic Results Result Comments SCR MAMM BILATERAL FELA 2019-02-21 14:07:02 - SCR MAMM BILATERAL FELA CAD CAD DIGITAL DIGITALBILATERAL FIRST EVER DIGITAL SCREENING MAMMOGRAM 3D/2D WITH CAD: 02/18/2019CLINICAL: Asymptomatic. Digital breast tomosynthesis was performed in addition to routine CC and MLO views. Current mammographic images were evaluated by either a [employer] M-Vu or a [employer] ImageChecker CAD (computer aided detection system). No prior exams were available for comparison. The tissue of both breasts is predominantly fatty. On the right cc view, a 1.0 cm asymmetry is noted laterally, 7 cm from the nipple. This is indeterminate, and additional imaging is recommended.On the left, no suspicious mass, architectural distortion, malignant type calcification, or lymph node abnormality detected. IMPRESSION: INCOMPLETE: ADDITIONAL IMAGING EVALUATION NEEDED1. Indeterminate right breast asymmetry as above. Recommend right lateral and spot compression views for further evaluation, with ultrasound if indicated at that time.Saritha otero/:02/21/2019 14:07:02 Food And Beverage Controller: Janna Lovell MM, [facility] Mammographyletter sent: Additional Imaging Mammogram BI-RADS: 0 Incomplete: Additional Imaging Evaluation Needed POCT-GLUCOSE METER 2017-08-05 12:50:00 Test Item Value Reference Range Comments POC-GLUCOSE METER (BEAKER) (test 303 mg/dL 70-110 TESTED AT [facility] [address] dilv=7133) [facility] [address] POCT-GLUCOSE [id number] 07:28:00 Test Item Value Reference Range Comments POC-GLUCOSE METER (BEAKER) 241 mg/dL 70-110 TESTED AT [address] (test fdqi=4897) [place] [id number] POCT-GLUCOSE [id number] 00:08:00 Test Item Value Reference Range Comments POC-GLUCOSE METER (BEAKER) 280 mg/dL 70-110 TESTED AT [address] (test xfgv=6104) [place] [id number] POCT-GLUCOSE [id number] 18:41:00 Test Item Value Reference Range Comments POC-GLUCOSE METER (BEAKER) 221 mg/dL 70-110 TESTED AT [address] (test zage=2201) [place] [id number] POCT-GLUCOSE [id number] 11:50:00 Test Item Value Reference Range Comments POC-GLUCOSE METER (BEAKER) 296 mg/dL 70-110 TESTED AT [address] (test xvxf=6439) [facility] [address] CBC W/PLT COUNT & AUTO [id number] 08:41:00 Test Item Value Reference Range Comments WHITE BLOOD CELL COUNT (BEAKER) (test qewc=187) 7.4 K/ L 3.5-10.5 RED BLOOD CELL COUNT (BEAKER) (test rtmh=167) 4.75 M/ L 3.93-5.22 HEMOGLOBIN (BEAKER) (test bgne=902) 15.3 GM/DL 11.2-15.7 HEMATOCRIT (BEAKER) (test eyyr=513) 45.8 % 34.1-44.9 MEAN CORPUSCULAR VOLUME (BEAKER) (test mbni=270) 96.4 fL 79.4-94.8 MEAN CORPUSCULAR HEMOGLOBIN (BEAKER) (test 32.2 pg 25.6-32.2 giyh=498) MEAN CORPUSCULAR HEMOGLOBIN CONC (BEAKER) (test 33.4 GM/DL 32.2-35.5 qhey=324) RED CELL DISTRIBUTION WIDTH (BEAKER) (test 12.3 % 11.7-14.4 ohjt=055) PLATELET COUNT (BEAKER) (test igie=543) 148 K/CU MM 150-450 MEAN PLATELET VOLUME (BEAKER) (test xqpy=958) 10.6 fL 9.4-12.3 NUCLEATED RED BLOOD CELLS (BEAKER) (test 0 /100 WBC 0-0 iong=767) NEUTROPHILS RELATIVE PERCENT (BEAKER) (test 47 % nmds=919) LYMPHOCYTES RELATIVE PERCENT (BEAKER) (test 44 % zzhf=196) MONOCYTES RELATIVE PERCENT (BEAKER) (test 6 % tjpr=649) EOSINOPHILS RELATIVE PERCENT (BEAKER) (test 3 % vbsy=216) BASOPHILS RELATIVE PERCENT (BEAKER) (test 0 % hhgd=602) NEUTROPHILS ABSOLUTE COUNT (BEAKER) (test 3.44 K/ L 1.56-6.13 hjiq=679) LYMPHOCYTES ABSOLUTE COUNT (BEAKER) (test 3.25 K/ L 1.18-3.74 pxvf=368) MONOCYTES ABSOLUTE COUNT (BEAKER) (test 0.44 K/ L 0.24-0.36 ctlh=798) EOSINOPHILS ABSOLUTE COUNT (BEAKER) (test 0.22 K/ L 0.04-0.36 ixke=630) BASOPHILS ABSOLUTE COUNT (BEAKER) (test 0.02 K/ L 0.01-0.08 hyyn=427) IMMATURE GRANULOCYTES-RELATIVE PERCENT (BEAKER) 0 % 0-1 (test xyxh=6348) (MANUAL DIFFERENTIAL)2017-08-04 08:41:00 Test Item Value Reference Range Comments TOTAL COUNTED (BEAKER) (test hyjr=8894) POCT-GLUCOSE [id number] 07:16:00 Test Item Value Reference Range Comments POC-GLUCOSE METER (BEAKER) 213 mg/dL 70-110 TESTED AT [facility] [address] [facility] (test huwx=1477) [facility] [address] HEPATIC FUNCTION [id number] 06:10:00 Test Item Value Reference Range Comments TOTAL PROTEIN (BEAKER) (test vgig=312) 7.1 gm/dL 6.0-8.3 ALBUMIN (BEAKER) (test srze=6160) 4.2 g/dL 3.5-5.0 BILIRUBIN TOTAL (BEAKER) (test bzwh=015) 0.7 mg/dL 0.2-1.2 BILIRUBIN DIRECT (BEAKER) (test ecqj=165) 0.2 mg/dL 0.1-0.5 ALKALINE PHOSPHATASE (BEAKER) (test hqpf=414) 73 U/L 40-150 AST (SGOT) (BEAKER) (test woxr=511) 15 U/L 5-34 ALT (SGPT) (BEAKER) (test dtth=289) 22 U/L 6-55 BASIC METABOLIC [id number] 06:10:00 Test Item Value Reference Range Comments SODIUM (BEAKER) (test 136 meq/L 136-145 iuiu=717) POTASSIUM (BEAKER) (test 4.4 meq/L 3.5-5.1 pops=945) CHLORIDE (BEAKER) (test 101 meq/L 98-107 tnxr=233) CO2 (BEAKER) (test 26 meq/L 22-29 sjmy=676) BLOOD UREA NITROGEN 13 mg/dL 7-21 (BEAKER) (test defg=873) CREATININE (BEAKER) (test 0.79 mg/dL 0.57-1.25 fnwg=531) GLUCOSE RANDOM (BEAKER) 256 mg/dL 70-105 (test vpfl=226) CALCIUM (BEAKER) (test 9.9 mg/dL 8.4-10.2 ybfs=147) EGFR (BEAKER) (test 79 mL/min/1.73 sq m ESTIMATED GFR IS NOT zroc=9838) ACCURATE CREATININE CLEARANCE IN PREDICTING GLOMERULAR FILTRATION RATE. ESTIMATED GFR IS NOT APPLICABLE FOR DIALYSIS PATIENTS. POCT-GLUCOSE [id number] 23:52:00 Test Item Value Reference Range Comments POC-GLUCOSE METER (BEAKER) 241 mg/dL 70-110 TESTED AT [address] (test ejur=3354) [place] [id number] POCT-GLUCOSE [id number] 21:08:00 Test Item Value Reference Range Comments POC-GLUCOSE METER (BEAKER) 290 mg/dL 70-110 TESTED AT [address] (test msxf=6261) [facility] [address] POCT-GLUCOSE [id number] 18:05:00 Test Item Value Reference Range Comments POC-GLUCOSE METER (BEAKER) 271 mg/dL 70-110 TESTED AT [address] (test fnvm=8214) [place] [address] POCT-GLUCOSE [id number] 14:51:00 Test Item Value Reference Range Comments POC-GLUCOSE METER (BEAKER) 280 mg/dL 70-110 TESTED AT [address] (test qvja=8137) [place] [address] VITAMIN [id number] 12:52:00 Test Item Value Reference Range Comments VITAMIN B12 (BEAKER) (test alyq=183) 398 pg/mL 213-816 FOLATE, [id number] 12:52:00 Test Item Value Reference Range Comments FOLATE (BEAKER) (test mfhi=893) 6.5 ng/mL >=7.0 MR, BRAIN, WITHOUT [id number] 10:20:00FINAL REPORT MRI Brain without contrast Clinical [...] MDReport Verified Date/Time: 08/03/2017 10:20:31 Reading Location: [address] Neuro Reading Room HEMOGLOBIN [id number] 08:11:00 Test Item Value Reference Range Comments HEMOGLOBIN A1C (BEAKER) (test mkdv=712) 13.4 % 4.3-6.1 POCT-GLUCOSE [id number] 07:31:00 Test Item Value Reference Range Comments POC-GLUCOSE METER (BEAKER) 274 mg/dL 70-110 TESTED AT [address] (test fkds=0061) [facility] [address] HEPATIC FUNCTION [id number] 07:15:00 Test Item Value Reference Range Comments TOTAL PROTEIN (BEAKER) (test xcrl=853) 6.4 gm/dL 6.0-8.3 ALBUMIN (BEAKER) (test eafi=8457) 3.8 g/dL 3.5-5.0 BILIRUBIN TOTAL (BEAKER) (test wjlq=418) 0.5 mg/dL 0.2-1.2 BILIRUBIN DIRECT (BEAKER) (test wvni=250) 0.2 mg/dL 0.1-0.5 ALKALINE PHOSPHATASE (BEAKER) (test watr=420) 71 U/L 40-150 AST (SGOT) (BEAKER) (test lvha=937) 10 U/L 5-34 ALT (SGPT) (BEAKER) (test blkv=822) 18 U/L 6-55 BASIC METABOLIC [id number] 07:15:00 Test Item Value Reference Range Comments SODIUM (BEAKER) (test 134 meq/L 136-145 zlss=951) POTASSIUM (BEAKER) (test 4.4 meq/L 3.5-5.1 swkm=114) CHLORIDE (BEAKER) (test 101 meq/L 98-107 qkvp=567) CO2 (BEAKER) (test 25 meq/L 22-29 wani=095) BLOOD UREA NITROGEN 13 mg/dL 7-21 (BEAKER) (test tbur=696) CREATININE (BEAKER) (test 0.80 mg/dL 0.57-1.25 svqh=494) GLUCOSE RANDOM (BEAKER) 299 mg/dL 70-105 (test jryn=271) CALCIUM (BEAKER) (test 9.5 mg/dL 8.4-10.2 fiai=159) EGFR (BEAKER) (test 78 mL/min/1.73 sq m ESTIMATED GFR IS NOT otcf=4306) ACCURATE CREATININE CLEARANCE IN PREDICTING GLOMERULAR FILTRATION RATE. ESTIMATED GFR IS NOT APPLICABLE FOR DIALYSIS PATIENTS. TSH/FREE T4 IF [id number] 07:08:00 Test Item Value Reference Range Comments THYROID STIMULATING HORMONE (BEAKER) (test 3.56 uIU/mL 0.35-4.94 rmcz=527) CBC W/PLT COUNT & AUTO [id number] 06:36:00 Test Item Value Reference Range Comments WHITE BLOOD CELL COUNT (BEAKER) (test cuss=903) 8.6 K/ L 3.5-10.5 RED BLOOD CELL COUNT (BEAKER) (test ctxi=230) 4.54 M/ L 3.93-5.22 HEMOGLOBIN (BEAKER) (test vlvb=857) 14.5 GM/DL 11.2-15.7 HEMATOCRIT (BEAKER) (test kuxo=853) 43.8 % 34.1-44.9 MEAN CORPUSCULAR VOLUME (BEAKER) (test wyzv=659) 96.5 fL 79.4-94.8 MEAN CORPUSCULAR HEMOGLOBIN (BEAKER) (test 31.9 pg 25.6-32.2 yraf=972) MEAN CORPUSCULAR HEMOGLOBIN CONC (BEAKER) (test 33.1 GM/DL 32.2-35.5 zizs=793) RED CELL DISTRIBUTION WIDTH (BEAKER) (test 12.5 % 11.7-14.4 uwwb=893) PLATELET COUNT (BEAKER) (test aovw=450) 139 K/CU MM 150-450 MEAN PLATELET VOLUME (BEAKER) (test bton=965) 10.8 fL 9.4-12.3 NUCLEATED RED BLOOD CELLS (BEAKER) (test 0 /100 WBC 0-0 ngps=455) NEUTROPHILS RELATIVE PERCENT (BEAKER) (test 55 % yjmz=054) LYMPHOCYTES RELATIVE PERCENT (BEAKER) (test 37 % xfzo=068) MONOCYTES RELATIVE PERCENT (BEAKER) (test 6 % pnok=434) EOSINOPHILS RELATIVE PERCENT (BEAKER) (test 2 % hafq=346) BASOPHILS RELATIVE PERCENT (BEAKER) (test 0 % cbqf=520) NEUTROPHILS ABSOLUTE COUNT (BEAKER) (test 4.70 K/ L 1.56-6.13 vkcc=590) LYMPHOCYTES ABSOLUTE COUNT (BEAKER) (test 3.21 K/ L 1.18-3.74 uhsj=640) MONOCYTES ABSOLUTE COUNT (BEAKER) (test 0.48 K/ L 0.24-0.36 otou=544) EOSINOPHILS ABSOLUTE COUNT (BEAKER) (test 0.18 K/ L 0.04-0.36 ycup=651) BASOPHILS ABSOLUTE COUNT (BEAKER) (test 0.03 K/ L 0.01-0.08 tsom=445) IMMATURE GRANULOCYTES-RELATIVE PERCENT (BEAKER) 0 % 0-1 (test nnnr=2295) CT, CTAODILON [id number] 02:48:00Addendum BeginsREPORT STATUS:A / Signed: Schuylre Blas MDReport Verified Date/Time: 08/03/2017 02:48:07 Reading Location: [facility] C013X Ortho Consult Reading RoomAddendum EndsFINAL REPORT CT, [...] MDReport Verified Date/Time: 08/03/2017 02:37:44 Reading Location: [facility] C013X Ortho Consult Reading Room CT, CAROTID, [id number] 02:48:00Addendum BeginsREPORT STATUS:A / Signed: Schuyler Blas MDReport Verified Date/Time: 08/03/2017 02:48:07 Reading Location: [facility] C013X Ortho Consult Reading RoomAddendum EndsFINAL REPORT CT, [...] MDReport Verified Date/Time: 08/03/2017 02:37:44 Reading Location: [facility] C013X Ortho Consult Reading Room POCT-GLUCOSE [id number] 21:29:00 Test Item Value Reference Range Comments POC-GLUCOSE METER (BEAKER) 329 mg/dL 70-110 TESTED AT [facility] [address] [facility] (test wljg=2985) [facility] [address] BASIC METABOLIC [id number] 21:01:00 Test Item Value Reference Range Comments SODIUM (BEAKER) (test 139 meq/L 136-145 sthk=775) POTASSIUM (BEAKER) (test 4.8 meq/L 3.5-5.1 Specimen slightly zhpt=472) hemolyzed CHLORIDE (BEAKER) (test 103 meq/L 98-107 rnzc=250) CO2 (BEAKER) (test 27 meq/L 22-29 acln=036) BLOOD UREA NITROGEN 13 mg/dL 7-21 (BEAKER) (test psbr=617) CREATININE (BEAKER) (test 0.86 mg/dL 0.57-1.25 Specimen slightly tesj=543) hemolyzed GLUCOSE RANDOM (BEAKER) 243 mg/dL 70-105 (test ookx=987) CALCIUM (BEAKER) (test 9.5 mg/dL 8.4-10.2 wsry=688) EGFR (BEAKER) (test 71 mL/min/1.73 sq m ESTIMATED GFR IS NOT drag=4012) ACCURATE CREATININE CLEARANCE IN PREDICTING GLOMERULAR FILTRATION RATE. ESTIMATED GFR IS NOT APPLICABLE FOR DIALYSIS PATIENTS. LIPID [id number] 21:01:00 Test Item Value Reference Range Comments TRIGLYCERIDES (BEAKER) (test 488 mg/dL Specimen slightly hemolyzed yxhv=619) CHOLESTEROL (BEAKER) (test 176 mg/dL Specimen slightly hemolyzed mxvk=755) HDL CHOLESTEROL (BEAKER) (test 32 mg/dL hkfk=993) Calculated LDL not valid if triglyceride >400 mg/dLTriglyceride Reference Range: Low Risk <150 Borderline 150-199 High Risk 200-499 Very High Risk >=500Cholesterol Reference Range: Low Risk <200 Borderline 200-239 High Risk >240HDL Cholesterol Reference Range: Low Risk >=60 High Risk <40LDL Cholesterol ReferenceRange: Optimal <100 Near Optimal 100-129 Borderline 130-159 High 160-189 Very High >=190HEPATIC FUNCTION [id number] 21:01:00 Test Item Value Reference Range Comments TOTAL PROTEIN (BEAKER) (test 6.8 gm/dL 6.0-8.3 Specimen slightly hemolyzed grok=844) ALBUMIN (BEAKER) (test 3.9 g/dL 3.5-5.0 Specimen slightly hemolyzed ummo=4712) BILIRUBIN TOTAL (BEAKER) (test 0.3 mg/dL 0.2-1.2 Specimen slightly hemolyzed xypc=657) BILIRUBIN DIRECT (BEAKER) (test 0.1 mg/dL 0.1-0.5 Specimen slightly hemolyzed ilzv=853) ALKALINE PHOSPHATASE (BEAKER) 84 U/L 40-150 (test wmxu=512) AST (SGOT) (BEAKER) (test 14 U/L 5-34 Specimen slightly hemolyzed cnir=568) ALT (SGPT) (BEAKER) (test 21 U/L 6-55 Specimen slightly hemolyzed ebbm=789) CBC W/PLT COUNT & AUTO [id number] 20:44:00 Test Item Value Reference Range Comments WHITE BLOOD CELL COUNT (BEAKER) (test ykcq=049) 8.3 K/ L 3.5-10.5 RED BLOOD CELL COUNT (BEAKER) (test tahf=070) 4.58 M/ L 3.93-5.22 HEMOGLOBIN (BEAKER) (test aenu=341) 14.7 GM/DL 11.2-15.7 HEMATOCRIT (BEAKER) (test zjsd=516) 44.6 % 34.1-44.9 MEAN CORPUSCULAR VOLUME (BEAKER) (test ukjt=215) 97.4 fL 79.4-94.8 MEAN CORPUSCULAR HEMOGLOBIN (BEAKER) (test 32.1 pg 25.6-32.2 kbav=570) MEAN CORPUSCULAR HEMOGLOBIN CONC (BEAKER) (test 33.0 GM/DL 32.2-35.5 dsql=332) RED CELL DISTRIBUTION WIDTH (BEAKER) (test 12.4 % 11.7-14.4 qbkr=919) PLATELET COUNT (BEAKER) (test vawv=859) 109 K/CU MM 150-450 MEAN PLATELET VOLUME (BEAKER) (test lhba=928) 10.8 fL 9.4-12.3 NUCLEATED RED BLOOD CELLS (BEAKER) (test 0 /100 WBC 0-0 uqzn=541) NEUTROPHILS RELATIVE PERCENT (BEAKER) (test 55 % jfhd=447) LYMPHOCYTES RELATIVE PERCENT (BEAKER) (test 37 % yyeb=826) MONOCYTES RELATIVE PERCENT (BEAKER) (test 6 % oiae=397) EOSINOPHILS RELATIVE PERCENT (BEAKER) (test 2 % zkno=564) BASOPHILS RELATIVE PERCENT (BEAKER) (test 0 % jtjl=919) NEUTROPHILS ABSOLUTE COUNT (BEAKER) (test 4.51 K/ L 1.56-6.13 lpyg=989) LYMPHOCYTES ABSOLUTE COUNT (BEAKER) (test 3.03 K/ L 1.18-3.74 jneq=988) MONOCYTES ABSOLUTE COUNT (BEAKER) (test 0.52 K/ L 0.24-0.36 coyt=553) EOSINOPHILS ABSOLUTE COUNT (BEAKER) (test 0.14 K/ L 0.04-0.36 pwrz=423) BASOPHILS ABSOLUTE COUNT (BEAKER) (test 0.03 K/ L 0.01-0.08 szbo=344) IMMATURE GRANULOCYTES-RELATIVE PERCENT (BEAKER) 0 % 0-1 (test eqto=6387)
--- NOTE | 2019-03-31 10:45 | ER ---
Nurse's Notes [facility] Name: Yessica Martinez Age: 48 yrs Sex: Female : 1970 Arrival Date: 03/31/2019 Time: 08:21 Bed 7 Private MD: Diagnosis: Vaginitis, vulvitis and vulvovaginitis in diseases classified elsewhere Presentation: 03/31 08:35 Presenting complaint: Patient states: "I have blisters in my vagina and I have no idea ss what it is. It's been going on for a few days. Peeing makes it burn and irritates it.". Transition of care: patient was not received from another setting of care. Onset of symptoms was March 28, 2019. Risk Assessment: Do you want to hurt yourself or someone else? Patient reports no desire to harm self or others. Initial Sepsis Screen: Does the patient meet any 2 criteria? No. Patient's initial sepsis screen is negative. Does the patient have a suspected source of infection? No. Patient's initial sepsis screen is negative. Care prior to arrival: None. 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 - Social history:: Smoking status: Patient uses tobacco products, smokes one pack cigarettes per day. - Ebola Screening: : Patient denies exposure to infectious person Patient denies travel to an Ebola-affected area in the 21 days before illness onset. Screenin:45 Abuse screen: Denies threats or abuse. Denies injuries from another. Nutritional jl7 screening: No deficits noted. Tuberculosis screening: No symptoms or risk factors identified. Fall Risk None identified. Assessment: 09:45 General: Appears in no apparent distress. uncomfortable, Behavior is cooperative, jl7 appropriate for age, anxious. Pain: Complains of pain in with urination. Neuro: Level of Consciousness is awake, alert, obeys commands, Oriented to person, place, time, situation. Cardiovascular: Patient's skin is warm and dry. Respiratory: Airway is patent Respiratory effort is even, unlabored, Respiratory pattern is regular, symmetrical. GI: No signs and/or symptoms were reported involving the gastrointestinal system. : Reports burning with urination, vaginal itching. Derm: Skin is pink, warm \\T\\ dry. 11:06 Reassessment: Pt will be discharged after shot time. jl7 Vital Signs: 08:37 BP 120 / 99; Pulse 84; Resp 15; Temp 97.9(TE); Pulse Ox 95% on R/A; Weight 90.72 kg; ss Height 5 ft. 3 in. (160.02 cm); Pain 0/10; 08:37 Body Mass Index 35.43 (90.72 kg, 160.02 cm) ED Course: 08:21 Patient arrived in ED. rg4 08:36 Triage completed. ss 08:37 Arm band placed on right wrist. ss 09:30 Curtis Anderson, RN is Primary Nurse. bp 09:31 Garth Garcia PA is PHCP. jr8 09:31 Zheng Evangelista MD is Attending Physician. jr8 09:33 Emmett Jose RN is Primary Nurse. jl7 09:45 Patient has correct armband on for positive identification. Placed in gown. Bed in low jl7 position. Call light in reach. Side rails up X 1. Warm blanket given. 09:55 Assist provider with pelvic exam: Set up pelvic tray. Performed by Garth BELCHER jl7 Specimens sent to lab. Patient tolerated well. 09:57 Urine collected: clean catch specimen, clear, nic colored. jb1 11:20 Patient did not have IV access during this emergency room visit. jl7 Administered Medications: 11:05 Drug: Rocephin (cefTRIAXone) 250 mg Route: IM; Site: right ventrogluteal; jl7 11:20 Follow up: Response: No adverse reaction jl7 11:06 Drug: Zithromax 1 grams Route: PO; jl7 11:20 Follow up: Response: No adverse reaction jl7 Outcome: 10:44 Discharge ordered by . jr8 11:20 Discharged to home ambulatory. jl7 11:20 Condition: stable 11:20 Discharge instructions given to patient, Instructed on discharge instructions, follow up and referral plans. medication usage, Demonstrated understanding of instructions, follow-up care, medications, Prescriptions given X 1. 11:24 Patient left the ED. jl7 Signatures: Antoni Zhao jb1 Jaylyn Mena, RN RN Garth Garcia PA PA jr8 Elaine Veras4 Emmett Jose RN RN jl7 Curtis Anderson, LATRICIA RN bp Corrections: (The following items were deleted from the chart) 12:12 12:11 Discharged to home ambulatory, jl7 jl7 12:12 12:11 Condition: stable jl7 jl7 12:12 12:11 Discharge instructions given to patient, Instructed on discharge instructions, jl7 follow up and referral plans. medication usage, Demonstrated understanding of instructions, follow-up care, medications, Prescriptions given X 1, jl7
--- NOTE | 2019-03-31 10:45 | EDPHYS ---
Physician Documentation [facility] Name: Yessica Martinez Age: 48 yrs Sex: Female : 1970 Arrival Date: 03/31/2019 Time: 08:21 Bed 7 Private MD: ED Physician Zheng Evangelista HPI: 03/31 09:50 This 48 yrs old Female presents to ER via Ambulatory with complaints of jr8 Blisters On Vagina. 09:50 Onset: The symptoms/episode began/occurred acutely, 2 day(s) ago. Modifying factors: jr8 The symptoms are alleviated by nothing, the symptoms are aggravated by nothing. Associated signs and symptoms: The patient has no apparent associated signs or symptoms. Severity of symptoms: At their worst the symptoms were mild, in the emergency department the symptoms are unchanged. The patient has experienced a previous episode. The patient has not recently seen a physician. 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 - Social history:: Smoking status: Patient uses tobacco products, smokes one pack cigarettes per day. - Ebola Screening: : Patient denies exposure to infectious person Patient denies travel to an Ebola-affected area in the 21 days before illness onset. ROS: 09:50 Eyes: Negative for injury, pain, redness, and discharge, ENT: Negative for injury, jr8 pain, and discharge, Neck: Negative for injury, pain, and swelling, Cardiovascular: Negative for chest pain, palpitations, and edema, Respiratory: Negative for shortness of breath, cough, wheezing, and pleuritic chest pain, Abdomen/GI: Negative for abdominal pain, nausea, vomiting, diarrhea, and constipation, Back: Negative for injury and pain, MS/Extremity: Negative for injury and deformity, Skin: Negative for injury, rash, and discoloration, Neuro: Negative for headache, weakness, numbness, tingling, and seizure. 09:50 : Positive for vaginal itching, ulcerations to external vagina. Exam: 09:50 Eyes: Pupils equal round and reactive to light, extra-ocular motions intact. Lids and jr8 lashes normal. Conjunctiva and sclera are non-icteric and not injected. Cornea within normal limits. Periorbital areas with no swelling, redness, or edema. ENT: Nares patent. No nasal discharge, no septal abnormalities noted. Tympanic membranes are normal and external auditory canals are clear. Oropharynx with no redness, swelling, or masses, exudates, or evidence of obstruction, uvula midline. Mucous membranes moist. Neck: Trachea midline, no thyromegaly or masses palpated, and no cervical lymphadenopathy. Supple, full range of motion without nuchal rigidity, or vertebral point tenderness. No Meningismus. Cardiovascular: Regular rate and rhythm with a normal S1 and S2. No gallops, murmurs, or rubs. Normal PMI, no JVD. No pulse deficits. Respiratory: Lungs have equal breath sounds bilaterally, clear to auscultation and percussion. No rales, rhonchi or wheezes noted. No increased work of breathing, no retractions or nasal flaring. Abdomen/GI: Soft, non-tender, with normal bowel sounds. No distension or tympany. No guarding or rebound. No evidence of tenderness throughout. Back: No spinal tenderness. No costovertebral tenderness. Full range of motion. Skin: Warm, dry with normal turgor. Normal color with no rashes, no lesions, and no evidence of cellulitis. MS/ Extremity: Pulses equal, no cyanosis. Neurovascular intact. Full, normal range of motion. Neuro: Awake and alert, GCS 15, oriented to person, place, time, and situation. Cranial nerves II-XII grossly intact. Motor strength 5/5 in all extremities. Sensory grossly intact. Cerebellar exam normal. Normal gait. Vital Signs: 08:37 BP 120 / 99; Pulse 84; Resp 15; Temp 97.9(TE); Pulse Ox 95% on R/A; Weight 90.72 kg; ss Height 5 ft. 3 in. (160.02 cm); Pain 0/10; 08:37 Body Mass Index 35.43 (90.72 kg, 160.02 cm) ss MDM: 09:33 Patient medically screened. jr8 10:44 Data reviewed: vital signs, nurses notes, and as a result, I will discharge patient. jr8 Data interpreted: Pulse oximetry: on room air is 95 %. Interpretation: normal. Counseling: I had a detailed discussion with the patient and/or guardian regarding: the historical points, exam findings, and any diagnostic results supporting the discharge/admit diagnosis, the need for outpatient follow up, a family practitioner, to return to the emergency department if symptoms worsen or persist or if there are any questions or concerns that arise at home. 03/31 09:46 Order name: Urine Dipstick--Ancillary (enter results); Complete Time: 11:10 eb 03/31 09:59 Order name: Wet Prep; Complete Time: 10:42 jr8 03/31 09:38 Order name: Urine Dipstick-Ancillary (obtain specimen); Complete Time: 09:58 jr8 03/31 09:38 Order name: Urine Test (obtain specimen); Complete Time: 10:01 jr8 Administered Medications: 11:05 Drug: Rocephin (cefTRIAXone) 250 mg Route: IM; Site: right ventrogluteal; jl7 11:20 Follow up: Response: No adverse reaction 7 11:06 Drug: Zithromax 1 grams Route: PO; jl7 11:20 Follow up: Response: No adverse reaction jl7 Disposition: 13:40 Co-signature as Attending Physician, Zheng Evangelista MD I agree with the assessment and kdr plan of care. Disposition: 03/31/19 10:44 Discharged to Home. Impression: Vaginitis, vulvitis and vulvovaginitis in diseases classified elsewhere. - Condition is Stable. - Discharge Instructions: Vaginitis. - Prescriptions for Clotrimazole 1 % Vaginal Cream - insert 1 applicatorful by VAGINAL route At bedtime for 7 days; 7 Syringe. - Medication Reconciliation Form, Thank You Letter, Antibiotic Education, Prescription Opioid Use form. - Follow up: Private Physician; When: 2 - 3 days; Reason: Recheck today's complaints, Continuance of care, Re-evaluation by your physician. - Problem is new. - Symptoms have improved. Signatures: Dispatcher [employer] EDZheng Bernard MD MD [facility] Jaylyn Mena RN RN Garth Galeano PA PA jr8 Emmett Jose RN RN jl7 Corrections: (The following items were deleted from the chart) 11:24 10:44 03/31/2019 10:44 Discharged to Home. Impression: Vaginitis, vulvitis and jl7 vulvovaginitis in diseases classified elsewhere. Condition is Stable. Forms are Medication Reconciliation Form, Thank You Letter, Antibiotic Education, Prescription Opioid Use. Follow up: Private Physician; When: 2 - 3 days; Reason: Recheck today's complaints, Continuance of care, Re-evaluation by your physician. Problem is new. Symptoms have improved. jr8
[2019-03-31 10:53] LABS: Urine Blood TRACE (NEG); Urine Glucose 2+ (NEG); Urine Protein NEGATIVE (NEG); Urine Specific Gravity 1.005 (1.005-1.030); Urine pH 5.5 (5.0-7.0)
[2019-03-31] MEDS ORDERED: AZITHROMYCIN 250 MG TAB ONE (10:54)
[2019-03-31] MEDS ORDERED: CEFTRIAXONE 250 MG/VIAL ONE (10:54)
[2019-03-31] MEDS ORDERED: LIDOCAINE 1% MPF 2 ML AMPULE ONE (10:54)
[2019-03-31 11:49] VITALS: BP 120/99; TEMP 97.9; O2SAT 95
== END 2019-03-31 11:24 | disposition home or self-care (01) ==
LOC: ER 08:19
DX: N76.0 Acute vaginitis (principal); N76.2 Acute vulvitis; F17.210 Nicotine dependence, cigarettes, uncomplicated
CPT/HCPCS: 81003; 87210; 96372; 99284; J0696; J2001

== ENCOUNTER 2022-12-18 11:39 | Emergency (ER) | payer SELFPAY ==
--- OUTSIDE RECORDS SUMMARY | 2022-12-18 11:43 | XMS REPORT | Continuity of Care Document ---
:1970 Author Organization [facility] t Address [address] [place] [address] [address] [place] [address] Care Team Providers Name Role Phone Sharpless Primary Care Physician INDER CERVANTES Attending Clinician Unavailable Inder Cervantes MD Attending Clinician Doctor Unassigned, [place] Attending Clinician Unavailable Sean Badillo MD Attending Clinician TYREE Attending Clinician Unavailable CANDI BAKER Attending Clinician Unavailable INDER CERVANTES Admitting Clinician Unavailable TYREE Admitting Clinician Unavailable CANDI BAKER Admitting Clinician Unavailable Payers Payer Name Policy Type Policy Number Effective Date Expiration Date S ource Problems Condition Condition Condition Status Onset Resolution Last Treating Co mments Source Name Details Category Date Date Treatment Clinician Date Presbyopia Presbyopia Problem Active 2019-0 [facility] 4-14 [facility] Mammograph Mammograph Problem Active 2018-04 [facility] y abnormal y Abnormal 1-06 da 00:00: [facility] Multiple Multiple Problem Active 2018-04 [place] joint pain Joint Pain 0-09 da 00:00: [facility] Tobacco Tobacco Problem Active [place] user User 5-13 da 00:00: [facility] Thrombocyt Thrombocyt Problem Active [facility] [place] openic openic 7-10 da disorder Disorder 00:00: [facility] Numbness Numbness Disease Active Unive rs of left of left 6-10 ity of hand hand 00:00: [address] Branch 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 2 ed type 2 nce 4-16 [facility] diabetes diabetes 00:00: Medica l mellitus mellitus 00 Center Thrombocyt Thrombocyt Disease Recurre [facility] open[facility]ia nce [facility] Carotid Carotid Disease Active [facility] stenosis, stenosis, 4-16 [facility] bilateral bilateral 00:00: Medi dwain 00 Center Acute CVA Acute CVA Disease Recurre [facility] (cerebrova (cerebrova nce 4-15 [place] k[facility] scular scular 00:00: Medical accident) accident) 00 Cent er Tobacco Tobacco Disease Active [facility] abuse abuse 4-15 [facility] Center Hyperlipid Hyperlipid Disease Active [facility] emia emia 4-15 [facility] 00 Center Abnormal Abnormal Disease Active [facility] t involuntar involuntar 4-15 [place] k[place] y movement y movement 00:00: Me dical 00 Center Cerebrovas Cerebrovas Problem Active M [place] cular cular 4-05 da accident Accident 00:00: [facility] Diabetes Diabetes Problem Active [place] mellitus Mellitus da [facility] Obesity Obesity Problem Active [place] [facility] Hypermetro Hypermetro Problem Active M [place] kristian kristian da [facility] Eye Eye Problem Active [place] disorder Disorder da screening 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 NO KNOWN [facility]ergy [facility] History Family Member Diagnosis Comments Start Date Stop Date Source Natural father Stroke [facility] Natural father Diabetes [facility] Social History Social Habit Start Date Stop Date Quantity Comments Source History of tobacco Cigarette Smoker BRANDON Chris use [facility] Center Exposure to Not sure University of SARS-CoV-2 (event) [facility] Tobacco Comment 2017-09-27 2017-09-27 a pack a day Univers ity of 00:00:00 00:00:[address] [facility] Tobacco use and 2017-08-02 2017-08-02 Smokeless [facility] St [place] flores exposure 00:00:00 00:00:00 tobacco non-user [facility] Cigarettes smoked 2017-08-02 2017-08-02 BRANDON Chris current (pack per 00:00:00 00:00:00 [facility] Center day) - Reported Alcohol intake 2017-08-02 2017-08-02 Current BRANDON Wilkinson es 00:00:00 00:00:00 non-drinker of Medical nter alcohol (finding) Sex Ass[birth year] BRANDON Weems 00:00:00 00:00:00 [facility] Smoking Status Start Date Stop Date Source Heavy Tobacco Smoker [facility] Current every day smoker 2017-09-27 00:00:[address] [facility] Medications Ordered Filled Start Stop Current Ordering Indication Dosage Frequency Signature Comments Components Source Medication Medication Date Date Medication? Clinician (SIG) Name Name cephALEXin 2020-04- No 500mg 500 mg, Un rd (KEFLEX) 06-02- Oral, ity of capsule 500 04:45: 03:40 [place] 1 [place] :00 dose, On [facility] 03/31/21 at 2245, KATHLEEN
Re ason for Anti-Infec tive: Documented Infection< br>Documen isabell Infection Site: Skin / Soft Tissue
Duration of Therapy: Other (see Comments) insulin 2020-04- No 5U 5 Units, Unive rs regular - 12-13 IV Push, ity of human 03:45: 02:41 ONCE, 1 [place] (HUMULIN R) 00 :00 dose, On Medi dwain injection 5 [place] Branch Units 03/31/21 at 2145, STAT ketorolac 2020-04- No 30mg 30 mg, Unive rs (TORADOL) 2-04-01 Slow IV ity of injection 03:00: 02:08 Push, [place] 30 mg 00 :00 ONCE, 1 Medical dose, On Branch 03/31/21 at 2100, KATHLEEN ondansetron 2020-04- No 4mg 4 mg, Slow Univers (ZOFRAN 06-02 IV Push, ity of (PF)) 03:00: 02:08 ONCE, 1 [place] injection 4 00 :00 dose, On Medi dwain mg [facility] 03/31/21 at 2100, KATHLEEN cephALEXin 2020-04- No [id number] 500mg Take 1 Univers 500 mg 06-01 capsule by ity of capsule 00:00: 05:59 mouth 3 [place] 00 :00 (three) Medical times [place] daily for 10 days. clopidogrel 2018-0 Yes 75mg Take 1 Univ ers 75 mg 6-12 tablet by ity of tablet 00:00: mouth [place] 00 daily. [facility] clopidogrel 2018-0 Yes 75mg Take 1 Univ ers 75 mg 6-12 tablet by ity of tablet 00:00: mouth [place] 00 daily. [facility] Branch clopidogrel 2018-0 Yes 75mg Take 1 Univ ers 75 mg 6-12 tablet by ity of tablet 00:00: mouth [place] 00 daily. [facility] Branch clopidogrel 2018-0 Yes 75mg Take 1 Univ ers 75 mg 6-12 tablet by ity of tablet 00:00: mouth [place] 00 daily. [facility] Branch aspirin 81 2018-0 Yes 81mg Take 81 mg U nivers mg chewable 6-11 by mouth ity of tablet 20:46: daily. [address] gabapentin 2018-0 Yes 100mg Take [address] 100 mg 6-11 mg by ity of capsule 20:46: mouth. [address] aspirin 81 2018-0 Yes 81mg Take 81 mg U nivers mg chewable 6-11 by mouth ity of tablet 20:46: daily. [address] gabapentin 2018-0 Yes 100mg Take [address] 100 mg 6-11 mg by ity of capsule 20:46: mouth. [address] aspirin 81 2018-0 Yes 81mg Take 81 mg U nivers mg chewable 6-11 by mouth ity of tablet 20:46: daily. [address] gabapentin 2018-0 Yes 100mg Take [address] 100 mg 6-11 mg by ity of capsule 20:46: mouth. [address] metFORMIN 2018-0 Yes 500mg Take 500 Uni vers 500 mg/5 mL 6-11 mg by ity of solution 20:46: mouth 2 [place] 48 (two) Medical times Branch daily with meals. metFORMIN 2018-0 Yes 500mg Take 500 Uni vers 500 mg/5 mL 6-11 mg by ity of solution 20:46: mouth 2 [place] [address] (two) Medical times Branch daily with meals. metFORMIN 2018-0 Yes 500mg Take 500 Uni vers 500 mg/5 mL 6-11 mg by ity of solution 20:46: mouth 2 [place] [address] (two) Medical times Branch daily with meals. aspirin 81 2018-0 Yes 81mg Take 81 mg U nivers mg chewable 6-11 by mouth ity of tablet 15:46: daily. [address] gabapentin 2018-0 Yes 100mg Take [address] 100 mg 6-11 mg by ity of capsule 15:46: mouth. [address] metFORMIN 2018-0 Yes 500mg Take 500 Uni vers 500 mg/5 mL 6-11 mg by ity of solution 15:46: mouth 2 [place] [address] (two) Medical times [place] daily with meals. atorvastati 2018-0 Yes 80mg Take 2 Univ ers n 40 mg 6-11 tablets by ity of tablet 00:00: mouth [place] 00 every Medical evening. Branch atorvastati 2018-0 Yes 80mg Take 2 Univ ers n 40 mg 6-11 tablets by ity of tablet 00:00: mouth [place] 00 every Medical evening. Branch atorvastati 2018-0 Yes 80mg Take 2 Univ ers n 40 mg 6-11 tablets by ity of tablet 00:00: mouth [place] 00 every Medical evening. Branch atorvastati 2018-0 Yes 80mg Take 2 Univ ers n 40 mg 6-11 tablets by ity of tablet 00:00: mouth [place] 00 every Medical evening. Branch metFORMIN 2018-0 Yes 500mg Take [address] (GLUCOPHAGE 4-18 mg by [facility] ) 500 MG 15:13: mouth 2 Medica l tablet 06 (two) Center times daily with breakfast and dinner. gabapentin 2018-0 Yes 100mg Q.5D Take [address] (NEURONTIN) 4-18 mg by [facility] 100 MG 15:13: mouth 2 Medical capsule 06 (two) Center times daily. metFORMIN 2018-0 Yes 500mg Take [address] (GLUCOPHAGE 4-18 mg by [facility] ) 500 MG 15:13: mouth 2 Medica l tablet 06 (two) Center times daily with breakfast and dinner. gabapentin 2018-0 Yes 100mg Q.5D Take [address] (NEURONTIN) 4-18 mg by [facility] 100 MG 15:13: mouth 2 Medical capsule 06 (two) Center times daily. metFORMIN 2018-0 Yes 500mg Take [address] (GLUCOPHAGE 4-18 mg by [facility] ) 500 MG 15:13: mouth 2 Medica l tablet 06 (two) Center times daily with breakfast and dinner. gabapentin 2018-0 Yes 100mg Q.5D Take [address] (NEURONTIN) 4-18 mg by [facility] 100 MG 15:13: mouth 2 Medical capsule 06 (two) Center times daily. metFORMIN 2018-0 Yes 500mg Take [address] (GLUCOPHAGE 4-18 mg by [facility]ukes ) 500 MG 15:13: mouth 2 Medica l tablet 06 (two) Center times daily with breakfast and dinner. gabapentin 2018-0 Yes 100mg Q.5D Take [address] (NEURONTIN) 4-18 mg by [facility]ukes 100 MG 15:13: mouth 2 Medical capsule 06 (two) Center times daily. metFORMIN 2018-0 Yes 500mg Take [address] (GLUCOPHAGE 4-18 mg by [facility]ukes ) 500 MG 15:13: mouth 2 Medica l tablet 06 (two) Center times daily with breakfast and dinner. gabapentin 2018-0 Yes 100mg Q.5D Take [address] (NEURONTIN) 4-18 mg by [facility]ukes 100 MG 15:13: mouth 2 Medical capsule 06 (two) Center times daily. glyBURIDE 2018-0 Yes 5mg QD Take [address] (DIABETA) 4-18 tablets (5 Luke s 2.5 MG 00:00: mg total) Medica l tablet 00 by mouth Center daily. insulin 2018-0 Yes Use as [facility] syringe-nee 4-18 instructed [place] kes dle U-100 00:00: .. Medical Syrg 00 Center atorvastati 2018-0 Yes 80mg QD Take [address] n (LIPITOR) 4-18 tablet (80 [place] kes 80 MG 00:00: mg total) Medical tablet 00 by mouth Center daily. insulin NPH 2018-0 Yes 12U QD Inject [address] (HUMULIN 4-18 Units [facility]ukes N,NOVOLIN 00:00: subcutaneo Me dical N) 100 00 usly every Center unit/mL morning injection Use as directed. glyBURIDE 2018-0 Yes 5mg QD Take [address] (DIABETA) 4-18 tablets (5 Luke s 2.5 MG 00:00: mg total) Medica l tablet 00 by mouth Center daily. insulin 2018-0 Yes Use as [facility] syringe-nee 4-18 instructed [place] kes dle U-100 00:00: .. Medical Syrg 00 Center atorvastati 2018-0 Yes 80mg QD Take [address] n (LIPITOR) 4-18 tablet (80 [place] kes 80 MG 00:00: mg total) Medical tablet 00 by mouth Center daily. insulin NPH 2018-0 Yes 12U QD Inject [address] (HUMULIN 4-18 Units [facility]ukes N,NOVOLIN 00:00: subcutaneo Me dical N) 100 00 usly every Center unit/mL morning injection Use as directed. glyBURIDE 2018-0 Yes 5mg QD Take [address] (DIABETA) 4-18 tablets (5 Luke s 2.5 MG 00:00: mg total) Medica l tablet 00 by mouth Center daily. insulin 2018-0 Yes Use as [facility] syringe-nee 4-18 instructed [place] kes dle U-100 00:00: .. Medical Syrg 00 [place] atorvastati 2018-0 Yes 80mg QD Take [address] n (LIPITOR) 4-18 tablet (80 [place] kes 80 MG 00:00: mg total) Medical tablet 00 by mouth Center daily. insulin NPH 2018-0 Yes 12U QD Inject [address] (HUMULIN 4-18 Units [facility]ukes N,NOVOLIN 00:00: subcutaneo Me dical N) 100 00 usly every Center unit/mL morning injection Use as directed. insulin NPH 2018-0 Yes 18U inject 18 U nivers 100 unit/mL 4-18 Units ity of injection 00:00: under the [place] as 00 skin. Medical Branch glyBURIDE 2018-0 Yes 5mg QD Take [address] (DIABETA) 4-18 tablets (5 Luke s 2.5 MG 00:00: mg total) Medica l tablet 00 by mouth Center daily. insulin NPH 2018-0 Yes 18U inject 18 U nivers 100 unit/mL 4-18 Units ity of injection 00:00: under the [place] as 00 skin. [facility] Branch insulin 2018-0 Yes Use as [facility] syringe-nee 4-18 instructed [place] kes dle U-100 00:00: .. Medical Syrg 00 Center insulin NPH 2018-0 Yes 18U inject 18 U nivers 100 unit/mL 4-18 Units ity of injection 00:00: under the [place] as 00 skin. [facility] Branch atorvastati 20180 Yes 80mg QD Take [address] n (LIPITOR) 4-18 tablet (80 [place] kes 80 MG 00:00: mg total) Medical tablet 00 by mouth Center daily. insulin NPH 2018-0 Yes 18U inject 18 U nivers 100 unit/mL 4-18 Units ity of injection 00:00: under the [place] as 00 skin. [facility] Branch insulin NPH 2017-0 Yes 12U QD Inject [address] (HUMULIN 4-18 Units [facility]ukes N,NOVOLIN 00:00: subcutaneo Me dical N) 100 00 usly every Center unit/mL morning injection Use as directed. glyBURIDE 2018-0 Yes 5mg QD Take [address] (DIABETA) 4-18 tablets (5 Luke s 2.5 MG 00:00: mg total) Medica l tablet 00 by mouth Center daily. insulin 2018-0 Yes Use as [facility] syringe-nee 4-18 instructed [place] kes dle U-100 00:00: .. Medical Syrg 00 [place] atorvastati 2018-0 Yes 80mg QD Take [address] n (LIPITOR) 4-18 tablet (80 [place] kes 80 MG 00:00: mg total) Medical tablet 00 by mouth Center daily. insulin NPH 2018-0 Yes 12U QD Inject [address] (HUMULIN 4-18 Units [facility] N,NOVOLIN 00:00: subcutaneo Me dical N) 100 00 usly every Center unit/mL morning injection Use as directed. Aspir-81 mg Aspir-81 mg No 1 Q1D Aspir-81 [place] tablet,keith tablet,keith mg d a yed release yed release tablet,del [facility] Take 1 Take 1 ayed al tablet tablet release Health every day every day Take 1 Out reac by oral by oral tablet h route. route. every day Progra m by oral route. clopidogrel clopidogrel No clopidogre [place] 75 mg 75 mg l 75 mg da tablet TAKE tablet TAKE tablet [facility] 1 TABLET BY 1 TABLET BY TAKE 1 al MOUTH EVERY MOUTH EVERY TABLET BY Health DAY DAY MOUTH Outreac EVERY DAY h Program Farxiga 10 Farxiga 10 No 1 Q1D Farxiga 10 [place] mg tablet mg tablet mg tablet da Take 1 Take 1 Take 1 [facility] tablet tablet tablet al every day every day every day Health by oral by oral by oral Outrea c route. route. route. h Program gabapentin gabapentin No gabapentin [place] 300 mg 300 mg 300 mg da capsule capsule capsule [facility] TAKE 1 TAKE 1 TAKE 1 al CAPSULE BY CAPSULE BY CAPSULE BY Health MOUTH TWICE MOUTH TWICE MOUTH Outreac DAILY DAILY TWICE h DAILY Program Januvia 100 Januvia 100 No Januvia [place] mg tablet mg tablet 100 mg da TAKE 1 TAKE 1 tablet [facility] TABLET BY TABLET BY TAKE 1 al MOUTH EVERY MOUTH EVERY TABLET BY Health DAY DAY MOUTH Outreac EVERY DAY h Program Levemir Levemir No Levemir [place] FlexTouch FlexTouch FlexTouch da U-100 U-100 U-100 [facility] Insulin 100 Insulin 100 Insulin al unit/mL (3 unit/mL (3 100 Hea lth mL) mL) unit/mL (3 Outreac subcutaneou subcutaneou mL) h s pen s pen subcutaneo Program ADMINISTER ADMINISTER us pen 80 UNITS 80 UNITS ADMINISTER UNDER THE UNDER THE 80 UNITS SKIN EVERY SKIN EVERY UNDER THE DAY DAY SKIN EVERY DAY Lipitor 80 Lipitor 80 No 1 Q1D Lipitor 80 [place] mg tablet mg tablet mg tablet da Take 1 Take 1 Take 1 [facility] tablet tablet tablet al every day every day every day Health by oral by oral by oral Outrea c route. route. route. h Program metformin metformin No metformin [place] 500 mg 500 mg 500 mg da tablet Take tablet Take tablet [facility] 1 tablet(s) 1 tablet(s) Take 1 al twice a day twice a day tablet(s) Health by oral by oral twice a Outrea c route. route. day by h oral Program route. Tresiba Tresiba No 80unit( Q1D Tresiba [place] FlexTouch FlexTouch s) FlexTouch da U-200 U-200 U-200 [facility] insulin 200 insulin 200 insulin al unit/mL (3 unit/mL (3 200 Hea lth mL) mL) unit/mL (3 Outreac subcutaneou subcutaneou mL) h s pen s pen subcutaneo Program Inject 80 Inject 80 us pen units every units every Inject 80 day by day by units subcutaneou subcutaneou every day s route. s route. by subcutaneo us route. Immunizations Ordered Immunization Filled Immunization Date Status Commen ts Source Name Name influenza, influenza, 2019-01-26 Completed [place] injectable, injectable, 09:08:43 [facility] quadrivalent, quadrivalent, Outreach Program preservative free preservative free pneumococcal pneumococcal 2017-09-23 Completed [place] conjugate PCV 13 conjugate PCV 13 00:00:00 [facility] Progr am Tdap Tdap 2017-09-23 Completed [facility] 00:00:00 [facility] Progr am Vital Signs Vital Name Observation Time Observation Value Comments Source Systolic blood 2021-04-01 03:43:00 121 mm[Hg] [facility] Diastolic blood 2021-04-01 03:43:00 77 mm[Hg] [facility] Heart rate 2021-04-01 03:43:00 73 /min [facility] Respiratory rate 2021-04-01 03:43:00 18 /min [facility] Oxygen saturation in 2021-04-01 03:43:00 96 /min [facility] Arterial blood by [facility] Pulse oximetry Branch Body temperature 2021-04-01 01:14:00 36.67 Joleen [facility] Body weight 2021-04-01 01:14:00 90.719 kg [facility] BMI 2021-04-01 01:14:00 35.43 kg/m2 [facility] Height 2019-08-02 00:00:00 63 [in_i] [place] [facility] BMI (Body Mass 2019-08-02 00:00:00 34.5 kg/m2 [place] 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9 [lb_av] [place] [facility] BP Systolic 2019-01-26 00:00:00 126 mm[Hg] [place] [facility] Body Weight 2019-01-26 00:00:00 199.6 [lb_av] [place] [facility] BP Diastolic 2019-01-26 00:00:00 90 mm[Hg] [place] [facility] Height 2019-01-26 00:00:00 63 [in_i] [place] [facility] BMI (Body Mass 2019-01-26 00:00:00 35.4 kg/m2 [place] client account manager Index) [facility] Procedures Procedure Date / Time Performing Clinician Source Performed POCT GLUCOSE (AUTOMATED) 2021-04-01 03:42:00 Inder Cervantes [facility] URINALYSIS 2021-04-01 03:02:00 Inder Cervantes [facility] TROPONIN I 2021-04-01 02:04:00 Inder Cervantes [facility] HEPATIC FUNCTION PANEL 2021-04-01 02:04:00 Inder Cervantes [facility] ([id number]) (ALB,T.PRO,BILI Medical Branch T,BU/BC,ALT,AST,ALK PHOS) BASIC METABOLIC PANEL 2021-04-01 02:04:00 Inder Cervantes [facility] (NA, K, CL, CO2, Medical Branch GLUCOSE, BUN, CREATININE, CA) ETHANOL 2021-04-01 02:04:00 Inder Cervantes [facility] CBC WITH DIFF 2021-04-01 02:04:00 Inder Cervantes [facility] N-TERMINAL PRO-BNP 2021-04-01 02:04:00 Inder Cervantes [facility] XR CHEST 2 VW 2021-04-01 01:55:00 Inder Cervantes [facility] XR HIPS 2 VW RIGHT 2021-04-01 01:55:00 Inder Cervantes [facility] XR SHOULDER 2+ VW RIGHT 2021-04-01 01:55:00 Inder Cervantes [facility] COVID-19 (ID NOW RAPID 2021-04-01 01:31:00 Inder Cervantes [facility] TESTING) [facility] POCT GLUCOSE (AUTOMATED) 2021-04-01 01:24:00 Inder Cervantes [facility] AUTHORIZATION FOR 2019-10-08 05:01:00 Doctor Unassigned, No [facility] RELEASE OF PHI Name [facility] REFERRAL- 2019-08-18 05:01:00 Doctor Unassigned, No [facility] REQUEST/RESPONSE Name [facility] US, breast 2019-02-23 00:00:00 [facility] MAMMO, screening, 2019-01-26 00:00:00 [place] [facility] digital, bilateral Health Outrea ch Program Delivery 1999-12-14 00:00:00 [place] Delivery 1997-05-31 00:00:00 [place] Tubal Ligation [facility] Encounters Start End Encounter Admission Attending Care Care Encounter Source Date/Time Date/Time Type Type Clinicians Facility Department ID 2022-10-15 2022-10-15 Outpatient DAGOBERTO ARENAS [id number] Jocelyne Jones 09:31:17 09:31:17 06Jenny Schwartz 2022-09-25 2022-09-25 Outpatient [facility] [id number] Robert 10:17:31 10:17:31 [id number] F Pe[place]ack 2022-07-01 2022-07-01 Outpatient [facility] [id number] Robert 08:06:59 08:06:59 [id number] F Efren 2021-03-31 2021-03-31 Emergency X INDER CERVANTES [facility] ERT [id number] Univers 19:16:00 22:20:[address] [facility] 2021-03-31 2021-03-31 Emergency Inder Cervantes TRAUMA [id number] Univers 19:16:00 22:20:00 W CENTER [id number] it [place] of [id number] [id number] [facility] 014 Branch 2019-10-08 2019-10-08 Orders Doctor DEMETRIO [id number] Univers 00:00:00 00:00:00 Only Unassigned, SANDRA [id number] ity of [place] [facility] [id number] [place] [id number] [facility] 009 [place] 2019-08-31 2019-08-31 [place] Aby [facility] [id number] Univers 00:00:00 00:00:00 Sean Pa Bonilla [id number] ity of [id number] [place] Profess[place] [id number] [facility] 092 [facility] 2019-08-18 2019-08-18 Orders Doctor DEMETRIO [id number] Univers 00:00:00 00:00:00 Only Unassigned, SANDRA [id number] ity of [place] [facility] [id number] [place] as [id number] [address] 2019-08-02 2019-08-02 Outpatient METCALF_MAGO [facility] [id number] [place] 12:18:00 12:18:00 SCILLA 0414 da [facility] Program 2019-08-02 2019-08-[address] [facility] [place] - [id number] [place] 00:00:00 00:00:00 [place] Jesus MD: 111 [facility] Osiele F, [place], [place] [facility] [phone] [facility] , Ph. h (970) Program 2019-08-01 2019-08-01 Outpatient METCALF_PRI [place] [id number] [place] 03:06:00 03:06:00 SCILLA 0413 da [facility] al [facility] Outreac h Program 2019-07-28 2019-07-28 Outpatient METCALF_PRI [facility] 76 [place] 11:24:00 11:24:00 SCILLA 0409 da Episc[facility] al Health Outreac h Program 2019-05-15 2019-05-15 Outpatient METCALF_PRI [facility] 76 [place] 03:06:00 03:06:00 SCILLA 0126 da Episc[facility] al Health Outreac h Program 2019-04-10 2019-04-10 Outpatient METCALF_PRI [place] [id number] [place] 03:05:00 03:05:00 SCILLA 0108 da [facility] al Health Outreac Program 2019-02-28 2019-02-[address] [facility] [place] - [id number] [place] 00:00:00 00:00:00 [place] Chapa da MILK CONDENSER: 1700 [facility] Os[place], [address] [phone] Progr am , Ph. 2019-01-26 2019-01-[address] [facility] [place] - [id number] 9 [place] 00:00:00 00:00:00 [place] Chapa da MILK CONDENSER: 1700 [facility] [address], [address] h [phone] Progr am , Ph. Results Test Description Test Time Test Comments Results Result Comments Source HEMOGLOBIN A1c 2022-10-16 03:18:18 Test Item Value Reference Range Interpretation Comme nts HEMOGLOBIN A1c (test code = 7.6 % 4.2-5.6 H ER[employer] DIAB[employer]ES ASSOCIATION 80029) GUIDELINES FOR HGB A1C: PREDIABETES/INC REASED RISK . . . . . . . 5.7-6.4% DIAGNO SIS OF DIABETES . . . . . . . . . >=6.5% WITH CONFIRMATION OR APPROPRIATE SYM PTOMS NOTE: ASSAY MAY BE AFFECTED BY HEM OGLOBINOPATHIES (SICKLE CELL ANEMIA, S- C DISEASE, OTHERS) OR ARTIFICIALLY LO WERED BY DECREASED RED CELL SURVIVAL ( HEMOLYTIC ANEMIAS, BLOOD LOSS, ETC.). CO NSIDER ALTERNATE TESTING OR LABORATORY C ONSULTATION. LIPID [id number] 03:03:41 Test Item Value Reference Range Interpretation Comments CHOLESTEROL (test 123 MG/DL <200 code = 2210) TRIGLYCERIDES (test 209 MG/DL <150 H code = 2232) HDL CHOLESTEROL (test 32 MG/DL >39 L code = 2220) CALC LDL CHOL (test 64 MG/DL <100 NOTE: C ALCULATED LDL code = 2237) IS BASED ON KENYA-BARRIGA METHOD WHICHINCLUDES ADJUSTABLE TRIGLYCERIDE:VL DL CHOLESTEROL RAT IO.THIS FACTOR VARIES B Y MEASURED TRIGLY CERIDE AND NON-HDLCHOL ESTEROL CONCENTRATIONS WITH INCREASED CALCU LATED LDL SEENIN HIGH ER TRIGLYCERIDE OR LOWER NON-HDL SPECIME NS. FOR MOREINFORMATION , SEE CLIENT ANNOUNCE MENT AT [email or web address] [email or web address] RATIO LDL/HDL 2.00 RATIO <3.22 UNLESS O THERWISE (test code = 2238) INDICATED , ALL TESTING PERFORMED AT [facility], [facility]. [address] [place] [address] ANDRIY GOLDEN DIRECTOR: Melissa PENA LEONOR NUMBER [id number] CAP ACCREDITATION N O. [id number] LIPID [id number] 05:43:22 Test Item Value Reference Range Interpretation Comments CHOLESTEROL (test 261 MG/DL <200 H code = 2210) TRIGLYCERIDES (test 295 MG/DL <150 H code = 2232) HDL CHOLESTEROL (test 36 MG/DL >39 L code = 2220) CALC LDL CHOL (test 175 MG/DL <100 H NOTE: C ALCULATED LDL code = 2237) IS BASED ON KENYA-BARRIGA METHOD WHICHINCLUDES ADJUSTABLE TRIGLYCERIDE:VL DL CHOLESTEROL RAT IO.THIS FACTOR VARIES B Y MEASURED TRIGLY CERIDE AND NON-HDLCHOL ESTEROL CONCENTRATIONS WITH INCREASED CALCU LATED LDL SEENIN HIGH ER TRIGLYCERIDE OR LOWER NON-HDL SPECIME NS. FOR MOREINFORMATION , SEE CLIENT ANNOUNCE MENT AT [email or web address] [email or web address] RATIO LDL/HDL 4.86 RATIO <3.22 H (test code = 2238) COMPREHENSIVE METABOLIC [id number] 05:43:22 Test Item Value Reference Range Interpretation Comments GLUCOSE (test code = 76 MG/DL 70-99 2216) BUN (test code = 11 MG/DL 6-20 2207) CREATININE (test 0.63 MG/DL 0.60-1.30 code = 221) eGFR (2020 CKD-EPI) 108 >60 (test code = 01467) ML/MIN/1.73 CALC BUN/CREAT (test 17 RATIO 6-28 code = 2235) SODIUM (test code = 141 MEQ/L 407-991 8783) POTASSIUM (test code 4.2 MEQ/L 3.5-5.4 = 2227) CHLORIDE (test code 102 MEQ/L 95-107 = 221) CARBON DIOXIDE (test 23 MEQ/L 19-31 code = 2206) CALCIUM (test code = 10.1 MG/DL 8.5-10.5 2208) PROTEIN, TOTAL (test 7.3 G/DL 6.1-8.3 code = 2229) ALBUMIN (test code = 4.7 G/DL 3.5-5.2 2200) CALC GLOBULIN (test 2.6 G/DL 1.9-3.7 code = 2240) CALC A/G RATIO (test 1.8 RATIO 1.0-2.6 code = 2234) BILIRUBIN, TOTAL 0.2 MG/DL See_Comment [Automated message] (test code = 2207) The syste m which generated this result transmitted ref erence range: <=1.2. T he reference range was not used to int erpret this result as normal/abnormal . ALKALINE PHOSPHATASE 67 U/L 40-128 (test code = 2204) AST (test code = 12 U/L 9-40 2217) ALT (test code = 17 U/L 5-40 CPL mendoza s 2218) important patho logy staff changes effective 06/18. New patholo gy staff will prov macrina uninterrupted, excellent patie nt care and clinic al consultation. S ee URL: [email or web address]. UNLE SS OTHERWISE INDIC ATED, ALL TESTING PER FORMED AT [facility] [place] [facility], [address] [place] [address] ANDRIY GONZALEZ DIRECTOR: PATRICK SCHULER M.D. C LEONOR NUMBER [id number] CAP ACCREDITATION N O. [id number] HEMOGLOBIN [id number] 02:37:53 Test Item Value Reference Range Interpretation Comments HEMOGLOBIN A1c (test 9.0 % 4.2-5.6 H [employer] AN DIABETES code = 28486) ASSOCIATION IDELINES FOR HGB A1C: PREDIABETES/INC REASED RISK . . . . . . . 5.7 -6.4% DIAGNOSIS OF DI ABETES . . . . . . . . . >=6 .5% WITH CONFIRMATION OR APPROPRIATE SYMPTOMS NOTE: ASSAY MAY BE AFFECTED BY HEMOGLOBINOPATH IES (SICKLE CELL ANEMIA, S- C DISEASE, OTHERS) OR JOHN FICIALLY LOWERED BY DECR EASED RED CELL SURVIVAL ( HEMOLYTIC ANEMIAS, BLOOD LOSS, ETC.). CONSIDER ALTERN ATE TESTING OR LABORATORY C ONSULTATION. HEMOGLOBIN [id number] 05:30:01 Test Item Value Reference Range Interpretation Comments HEMOGLOBIN A1c (test 10.6 % 4.2-5.6 H [employer] DIABETES code = 63421) ASSOCIATION IDELINES FOR HGB A1C: PREDIABETES/INC REASED RISK . . . . . . . 5 .7-6.4% DIAGNOSIS OF DI ABETES . . . . . . . . . >=6 .5% WITH CONFIRMATION OR APPROPRIATE SYMPTOMS NOTE: ASSAY MAY BE AFFECTED BY HEMOGLOBINOPATH IES (SICKLE CELL ANEMIA, S- C DISEASE, OTHERS) OR JOHN FICIALLY LOWERED BY DECR EASED RED CELL SURVIVAL ( HEMOLYTIC ANEMIAS, BLOOD LOSS, ETC.). CONSIDER ALTERN ATE TESTING OR LABORATORY C ONSULTATION. UNLESS OTHERWIS E INDICATED, ALL TESTING PER FORMED ATCLINICAL PATH GPal, I [address] [place] [address] LABORATORY DIRE CTOR: Lo MARTINEZ. CLIA NUMBER [id number] CAP ACCREDITATION N O. [id number] LIPID [id number] 04:55:54 Test Item Value Reference Range Interpretation Comments CHOLESTEROL (test 103 MG/DL <200 code = 2210) TRIGLYCERIDES (test 152 MG/DL <150 H code = 2232) HDL CHOLESTEROL (test 33 MG/DL >39 L code = 2220) CALC LDL CHOL (test 47 MG/DL <100 NOTE: C ALCULATED LDL code = 2237) IS BASED ON KENYA-BARRIGA METHOD WHICHINCLUDES ADJUSTABLE TRIGLYCERIDE:VL DL CHOLESTEROL RAT IO.THIS FACTOR VARIES B Y MEASURED TRIGLY CERIDE AND NON-HDLCHOL ESTEROL CONCENTRATIONS WITH INCREASED CALCU LATED LDL SEENIN HIGH ER TRIGLYCERIDE OR LOWER NON-HDL SPECIME NS. FOR MOREINFORMATION , SEE CLIENT ANNOUNCE MENT AT [email or web address] /[email or web address] RISK RATIO LDL/HDL 1.42 RATIO <3.22 (test code = 2238) COMPREHENSIVE METABOLIC [id number] 04:55:54 Test Item Value Reference Range Interpretation Comments GLUCOSE (test code = 93 MG/DL 70-99 2216) BUN (test code = 10 MG/DL 6-20 2207) CREATININE (test 0.60 MG/DL 0.60-1.30 code = 2214) eGFR (2020 CKD-EPI) 109 >60 (test code = 03932) ML/MIN/1.73 CALC BUN/CREAT (test 17 RATIO 6-28 code = 2235) SODIUM (test code = 141 MEQ/L 441-658 9670) POTASSIUM (test code 4.1 MEQ/L 3.5-5.4 = 2227) CHLORIDE (test code 102 MEQ/L 95-107 = 2215) CARBON DIOXIDE (test 24 MEQ/L 19-31 code = 2206) CALCIUM (test code = 10.6 MG/DL 8.5-10.5 H 2208) PROTEIN, TOTAL (test 7.5 G/DL 6.1-8.3 code = 2229) ALBUMIN (test code = 4.9 G/DL 3.5-5.2 2200) CALC GLOBULIN (test 2.6 G/DL 1.9-3.7 code = 2240) CALC A/G RATIO (test 1.9 RATIO 1.0-2.6 code = 2234) BILIRUBIN, TOTAL 0.5 MG/DL See_Comment [Automated message] (test code = 2207) The syste m which generated this result transmit isabell reference range : <=1.2. The refe rence range was not u sed to interpret th is result as normal/abnormal . ALKALINE PHOSPHATASE 84 U/L 40-128 (test code = 2204) AST (test code = 17 U/L 9-40 2217) ALT (test code = 25 U/L 5-40 2218) HEMOGLOBIN [id number] 05:48:34 Test Item Value Reference Range Interpretation Comments HEMOGLOBIN A1c (test 9.8 % 4.2-5.6 H [employer] AN DIABETES code = 15864) ASSOCIATION IDELINES FOR HGB A1C: PREDIABETES/INC REASED RISK . . . . . . . 5.7 -6.4% DIAGNOSIS OF DI ABETES . . . . . . . . . >=6 .5% WITH CONFIRMATION OR APPROPRIATE SYMPTOMS NOTE: ASSAY MAY BE AFFECTED BY HEMOGLOBINOPATH IES (SICKLE CELL ANEMIA, S- C DISEASE, OTHERS) OR JOHN FICIALLY LOWERED BY DECR EASED RED CELL SURVIVAL ( HEMOLYTIC ANEMIAS, BLOOD LOSS, ETC.). CONSIDER ALTERN ATE TESTING OR LABORATORY C ONSULTATION. LIPID [id number] 05:24:42 Test Item Value Reference Range Interpretation Comments CHOLESTEROL (test 129 MG/DL <200 code = 2210) TRIGLYCERIDES (test 385 MG/DL <150 H code = 2232) HDL CHOLESTEROL (test 30 MG/DL >39 L code = 2220) CALC LDL CHOL (test 58 MG/DL <100 NOTE: C ALCULATED LDL code = 2237) IS BASED ON KENYA-BARRIGA METHOD WHICHINCLUDES ADJUSTABLE TRIGLYCERIDE:VL DL CHOLESTEROL RAT IO.THIS FACTOR VARIES B Y MEASURED TRIGLY CERIDE AND NON-HDLCHOL ESTEROL CONCENTRATIONS WITH INCREASED CALCU LATED LDL SEENIN HIGH ER TRIGLYCERIDE OR LOWER NON-HDL SPECIME NS. FOR MOREINFORMATION , SEE CLIENT ANNOUNCE MENT AT [email or web address] RISK RATIO LDL/HDL 1.93 RATIO <3.22 UNLESS O THERWISE (test code = 2238) INDICATED , ALL TESTING PERFORMED [facility], [address] [place] [address] ANDRIY GONZALEZ DIRECTOR: JOSE D MENG M.D. CLIA NUMBER [id number] CAP ACCREDITATION N O. [id number] GERSON REFLEX AUTOIMMUNE AB [id number] 11:24:08 Test Item Value Reference Range Interpretation Comments ANTI-NUCLEAR NEGATIVE NEGATIVE Methodology i s Indirect ANTIBODIES (test Immunofluor escent Assay code = 3506) (IFA) with a [employer] system using He p2000 cells (Hep2 cells tra nsfected with SS-A/Ro). SEDIMENTATION [id number] 10:09:15 Test Item Value Reference Range Interpretation Comments SEDIMENTATION RATE (test code = 7 MM/HOUR 0-20 1017) C-REACTIVE [id number] 06:22:49 Test Item Value Reference Range Interpretation Comments C-REACTIVE PROTEIN (test code = <0.3 MG/DL <0.5 3513) RHEUMATOID FACTOR, [id number] 06:22:49 Test Item Value Reference Range Interpretation Comments RHEUMATOID FACTOR, QUANT (test code <10 IU/ML <14 = 3502) URIC [id number] 06:19:47 Test Item Value Reference Range Interpretation Comments URIC ACID (test code = 2233) 4.8 MG/DL 2.7-6.1 VITAMIN D, 25 [id number] 05:49:30 Test Item Value Reference Range Interpretation Comments VITAMIN D, 25 OH 33 NG/ML SEE BELOW NOTE: 25-H YDROXYVITAMIN D (test code = 4958) ASSAY INC LUDES 25-HYDROXYVITAM IN D2 AND D3. METHODOLOGY IS CHEMILUMINESCEN T IMMUNOASSAY. * INTERPRETIVE RA NGES PEDIATRIC (<17 YEARS) . . . . . . . . . . . NG/ML 20-100ADULT: IN SUFFICIENT . . . . . . . . . . . . . . NG/ML <20 SUBOP TIMAL . . . . . . . . . . . . . . . NG/ML 20-29 OPT IMAL . . . . . . . . . . . . . . . . . NG/ML 30-100 UN LESS OTHERWISE INDIC ATED, ALL TESTING PERFORM ED ATCLINICAL PATH [facility] [address] [place] [address] LABORATORY DIRE CTOR: Lo MARTINEZ. CLIA NUMBER [id number] CAP ACCREDITATION N O. [id number] HEMOGLOBIN [id number] 05:15:30 Test Item Value Reference Range Interpretation Comments HEMOGLOBIN A1c (test 10.9 % 4.2-5.6 H AMERIC AN DIABETES code = 10574) ASSOCIATION IDELINES FOR HGB A1C: PREDIABETES/INC REASED RISK . . . . . . . 5 .7-6.4% DIAGNOSIS OF DI ABETES . . . . . . . . . >=6 .5% WITH CONFIRMATION OR APPROPRIATE SYMPTOMS NOTE: ASSAY MAY BE AFFECTED BY HEMOGLOBINOPATH IES (SICKLE CELL ANEMIA, S- C DISEASE, OTHERS) OR JOHN FICIALLY LOWERED BY DECR EASED RED CELL SURVIVAL ( HEMOLYTIC ANEMIAS, BLOOD LOSS, ETC.). CONSIDER ALTERN ATE TESTING OR LABORATORY C ONSULTATION. UNLESS OTHERWIS E INDICATED, ALL TESTING PER FORMED [facility] [place] [address] [place] [address] LABORATORY DIRE CTOR: Lo MARTINEZ CLIA NUMBER [id number] CAP ACCREDITATION N O. [id number] COMPREHENSIVE METABOLIC [id number] 04:20:31 Test Item Value Reference Range Interpretation Comments GLUCOSE (test code = 309 MG/DL 70-99 H 2216) BUN (test code = 13 MG/DL 6-20 2207) CREATININE (test 0.63 MG/DL 0.60-1.30 EFFECTIVE code = 2214) 04/01/2021, [facility] HAS IMPLEMENTED THE NK-ASN RECOMME NDED KD-EPI EGF R REFIT CALCULATI ON THAT DOES NOT INCLUDE A COEFFICIENT FOR RACE. FOR MORE INFORMATION, SE E ANNOUNCEMENT [email or web address] eGFR (2020 CKD-EPI) 109 >60 (test code = 50722) ML/MIN/1.73 CALC BUN/CREAT (test 21 RATIO 6-28 code = 2235) SODIUM (test code = 139 MEQ/L 283-731 6019) POTASSIUM (test code 4.8 MEQ/L 3.5-5.4 = 2228) CHLORIDE (test code 101 MEQ/L 95-107 = 2215) CARBON DIOXIDE (test 23 MEQ/L 19-31 code = 2206) CALCIUM (test code = 9.9 MG/DL 8.5-10.5 2208) PROTEIN, TOTAL (test 7.0 G/DL 6.1-8.3 code = 2229) ALBUMIN (test code = 4.6 G/DL 3.5-5.2 2200) CALC GLOBULIN (test 2.4 G/DL 1.9-3.7 code = 2240) CALC A/G RATIO (test 1.9 RATIO 1.0-2.6 code = 2234) BILIRUBIN, TOTAL 0.4 MG/DL See_Comment [Automated message] (test code = 220) The syste m which generated this result transmit isabell reference range : <=1.2. The refe rence range was not u sed to interpret th is result as normal/abnormal . ALKALINE PHOSPHATASE 105 U/L 40-125 (test code = 2203) AST (test code = 12 U/L 9-40 2217) ALT (test code = 14 U/L 5-40 2218) LIPID [id number] 04:20:31 Test Item Value Reference Range Interpretation Comments CHOLESTEROL (test 129 MG/DL <200 code = 2210) TRIGLYCERIDES (test 244 MG/DL <150 H code = 2232) HDL CHOLESTEROL (test 32 MG/DL >39 L code = 2220) CALC LDL CHOL (test 67 MG/DL <100 NOTE: C ALCULATED LDL code = 2237) IS BASED ON KENYA-BARRIGA METHOD WHICHINCLUDES ADJUSTABLE TRIGLYCERIDE:VL DL CHOLESTEROL RAT IO.THIS FACTOR VARIES B Y MEASURED TRIGLY CERIDE AND NON-HDLCHOL ESTEROL CONCENTRATIONS WITH INCREASED CALCU LATED LDL SEENIN HIGH ER TRIGLYCERIDE OR LOWER NON-HDL SPECIME NS. FOR MOREINFORMATION , SEE CLIENT ANNOUNCE MENT AT [email or web address]://[email or web address] RISK RATIO LDL/HDL 2.09 RATIO <3.22 UNLESS O THERWISE (test code = 223) INDICATED , ALL TESTING PERFORMED [facility], [facility]. [address] [place] [address] [facility] DIRECTOR: JOSE D MENG M.D. CLIA NUMBER [id number] CAP ACCREDITATION N O. [id number] HEMOGLOBIN [id number] 04:10:59 Test Item Value Reference Range Interpretation Comments HEMOGLOBIN A1c (test 11.1 % 4.2-5.6 H AMCRYSTAL CAN DIABETES code = 58606) ASSOCIATION IDELINES FOR HGB A1C: PREDIABETES/INC REASED RISK . . . . . . . 5 .7-6.4% DIAGNOSIS OF DI ABETES . . . . . . . . . >=6 .5% WITH CONFIRMATION OR APPROPRIATE SYMPTOMS NOTE: ASSAY MAY BE AFFECTED BY HEMOGLOBINOPATH IES (SICKLE CELL ANEMIA, S- C DISEASE, OTHERS) OR JOHN FICIALLY LOWERED BY DECR EASED RED CELL SURVIVAL ( HEMOLYTIC ANEMIAS, BLOOD LOSS, ETC.). CONSIDER ALTERN ATE TESTING OR LABORATORY C ONSULTATION. POCT GLUCOSE (AUTOMATED)2021-04-01 03:43:25 Test Item Value Reference Range Interpretation Comments POCT GLU (test code = 8968253237) 174 mg/dL 70-110 H Lab Interpretation (test code = Abnormal 40258-9) [facility] [id number] 02:39:34 Test Item Value Reference Interpretation Comments Range TROPONIN I (test 0.001 ng/mL See_Comment [Automated code = 6250378894) message] The system which generated this result transmitted reference range : <=0.034. The reference range was not used to interpret this result as normal/abnormal . PENNY (test code = Reference (Normal) PENNY) Range (defined by the 99th percentile reference limit): <= 0.034 ng/mL Note: Cardiac troponin begins to rise 3-4 hours after the onset of ischemia. Repeat in 4-6 hours if the sample was drawn within 3-4 hours of the onset of the symptom and found normal. Diagnosis of myocardial injury is made with acute changes in cTn concentrations with at least one serial sample above the 99th percentile upper reference limit (URL), taken together with the patient's clinical presentation. Biotin has been reported to cause a negative bias, interpret results relative to patient's use of biotin. Lab Interpretation Normal (test code = 10242-7) [facility] [id number] 02:39:34 Test Item Value Reference Range Interpretation Comments NT-proBNP (test code 21 pg/mL See_Comment [Autom ated = 8762334031) message] The system which generated this result transmitted reference range : <=125. The reference range was not used to interpret this result as normal/abnormal . PENNY (test code = PENNY) Biotin has been reported to cause a negative bias, interpret results relative to patient's use of biotin. Lab Interpretation Normal (test code = 47532-2) [facility]OL2021-12-13 02:30:52 Test Item Value Reference Range Interpretation Comments ALCOHOL (test code = <10 mg/dL 9678558917) PENNY (test code = Toxic Greater than or PENNY) equal to 80 mg/dL. NOTE: Whole blood values are approximately 10% to 15% lower than serum and plasma. [facility] (NA, K, CL, CO2, GLUCOSE, BUN, CREATININE, CA)2021-04-01 02:26:51 Test Item Value Reference Range Interpretation Comments NA (test code = 134 mmol/L 135-145 L 4709206375) K (test code = 4.6 mmol/L 3.5-5.0 5490525293) CL (test code = 99 mmol/L 98-108 2142713595) CO2 TOTAL (test code = 25 mmol/L 23-31 1110406081) AGAP (test code = 2-16 4356061092) BUN (test code = 9 mg/dL 7-23 0306074274) GLUCOSE (test code = 316 mg/dL 70-110 H 3241193403) CREATININE (test code = 0.60 mg/dL 0.50-1.04 0108446156) CALCIUM (test code = 9.6 mg/dL 8.6-10.6 3072751416) eGFR (test code = mL/min/1.73m2 7528625736) PENNY (test code = PENNY) Association of Glomerular Filtration Rate (GFR) and Staging of Kidney Disease* + --+ --+ ------+| GFR (mL/min/1.73 m2) ?| With Kidney Damage ?| ?Without Kidney Damage+ --------+ --------+ +| ?>90 ?| ?Stage one ?| ? Normal ?+ ---+ ---+ -------+| ?60-89 ?| ?Stage two ?| ? Decreased GFR ? + --+ --+ ------+| ?30-59 ?| ?Stage three ?| ? Stage three ? + --+ --+ ------+| ?15-29 ?| ?Stage four ? | ? Stage four ?+ ---+ ---+ -------+| ?<15 (or dialysis) ? ?| ?Stage five ? | ? Stage five ?+ ---+ ---+ -------+ *Each stage assumes the associated GFR level has been in effect for at least three months. ?Stages 1 to 5, with or without kidney disease, indicate chronic kidney disease. Notes: Determination of stages one and two (with eGFR >59mL/min/1.73 m2) requires estimation of kidney damage for at least three months as defined by structural or functional abnormalities of the kidney, manifested by either:Pathological abnormalities or Markers of kidney damage (including abnormalities in the composition of the blood or urine or abnormalities in imaging tests). Lab Interpretation Abnormal (test code = 97163-9) [facility] (08556) (ALB,T.PRO,BILI T,BU/BC,ALT,AST,ALK PHOS)2021-04-01 02:26:51 Test Item Value Reference Range Interpretation Comments TOTAL BILI (test code = 9680820855) 0.8 mg/dL 0.1-1.1 BILI UNCON (test code = 7622399446) 0.4 mg/dL 0.1-1.1 BILI CONJ (test code = 5361928960) 0.0 mg/dL 0.0-0.3 T PROTEIN (test code = 5243151170) 7.4 g/dL 6.3-8.2 ALBUMIN (test code = 5106657480) 4.5 g/dL 3.5-5.0 ALK PHOS (test code = 3585583333) 83 U/L 34-122 ALTv (test code = 1742-6) 23 U/L 5-35 AST(SGOT) (test code = 5582958682) 22 U/L 13-40 Lab Interpretation (test code = Normal 30233-4) [facility] WITH [id number] 02:14:33 Test Item Value Reference Range Interpretation Comments WBC (test code = See_Comment [Automated 6690-2) message] The sy stem which generated this result transmitted reference range : 4.30 - 11.10 10*3/?L. The reference range was not used to interpret this result as normal/abnormal . RBC (test code = See_Comment [Automated 789-8) message] The sy stem which generated this result transmitted reference range : 3.93 - 5.25 10*6/?L. The reference range was not used to interpret this result as normal/abnormal . HGB (test code = 14.4 g/dL 11.6-15.0 718-7) HCT (test code = 42.9 % 35.7-45.2 4544-3) MCV (test code = 93.7 fL 80.6-95.5 787-2) MCH (test code = 31.4 pg 25.9-32.8 785-6) MCHC (test code = 33.6 g/dL 31.6-35.1 786-4) RDW-SD (test code = 43.6 fL 39.0-49.9 33080-7) RDW-CV (test code = 12.7 % 12.0-15.5 788-0) PLT (test code = See_Comment L [Automated 777-3) message] The sy stem which generated this result transmitted reference range : 166 - 358 10*3/ ?L. The reference r robinson was not used to interpret this result as normal/abnormal . MPV (test code = 10.5 fL 9.5-12.9 59539-6) NRBC/100 WBC (test See_Comment [Automat ed code = 7446327247) message] The system which generated this result transmitted reference range : 0.0 - 10.0 /100 WBCs. The refer ence range was not u sed to interpret th is result as normal/abnormal . NRBC x10^3 (test code <0.01 See_Comment [Auto mated = 9422993949) message] The s ystem which generated this result transmitted reference range : 10*3/?L. The reference range was not used to interpret this result as normal/abnormal . GRAN MAT (NEUT) % 64.1 % (test code = 770-8) IMM GRAN % (test code 0.30 % = 0927347123) LYMPH % (test code = 28.0 % 736-9) MONO % (test code = 6.4 % 5905-5) EOS % (test code = 0.9 % 713-8) BASO % (test code = 0.3 % 706-2) GRAN MAT x10^3(ANC) 5.85 10*3/uL 1.88-7.09 (test code = 5052786277) IMM GRAN x10^3 (test 0.03 10*3/uL 0.00-0.06 code = 8790472772) LYMPH x10^3 (test code 2.56 10*3/uL 1.32-3.29 = 731-0) MONO x10^3 (test code 0.58 10*3/uL 0.33-0.92 = 742-7) EOS x10^3 (test code = 0.08 10*3/uL 0.03-0.39 711-2) BASO x10^3 (test code 0.03 10*3/uL 0.01-0.07 = 704-7) Lab Interpretation Abnormal (test code = 05378-2) [facility]2021-04-01 01:25:55 Test Item Value Reference Range Interpretation Comments POCT GLU (test code = 0303941124) 366 mg/dL 70-110 H Lab Interpretation (test code = Abnormal 38387-3) [facility] [Mass/volume] in Capillary blood 2019-02-28 08:53:39 Test Item Value Reference Range Interpretation Comments Blood Glucose: mg/dl (test code = Blood 192 Glucose: mg/dl) [facility] Out[facility] ProgramSCR MAMM BILATERAL FELA CAD DIGITAL 2019-02-21 14:07:02 - SCR MAMM BILATERAL FELA CAD DIGITALBILATERAL FIRST EVER DIGITAL SCREENING MAMMOGRAM 3D/2D WITH CAD: 02/18/2019CLINICAL: Asymptomatic. Digital breast tomosynthesis was performed in addition to routineCC and MLO views. Current mammographic images were evaluated by either a eSight M-Vu or a Readmill ImageChecker CAD (computer aided detection system). No prior exams were available for comparison. The tissue of both breasts is predominantly fatty. On the right cc view, a 1.0 cm asymmetry is noted laterally, 7 cm from the nipple. This is indeterminate, and additional imaging is recommended.On the left,no suspicious mass, architectural distortion, malignant type calcification, or lymph node abnormality detected. IMPRESSION: INCOMPLETE: ADDITIONAL IMAGING EVALUATION NEEDED1. Indeterminate right breastasymmetry as above. Recommend right lateral and spot compression views for further evaluation, with ultrasound if indicated at that time.Saritha otero/:02/21/2019 14:07:02 Cargo Supervisor: Janna Lovell MM, [facility] [employer] Mammographyletter sent: Additional Imaging Mammogram BI-RADS: 0Incomplete: Additional Imaging Evaluation NeededComprehensive metabolic 2000 panel - Serum or [id number] 00:00:00 Test Item Value Reference Range Interpretation Comments Glucose [Mass/volume] in 170 mg/dL 65-99 H Serum or Plasma (test code = 2345-7) Urea nitrogen [Mass/volume] 13 mg/dL 6-24 in Serum or Plasma (test code = 3094-0) Creatinine [Mass/volume] in 0.76 mg/dL 0.57-1.00 Serum or Plasma (test code = 2160-0) eGFR if nonafricn AM (test 94 mL/min/1.73 >59 code = eGFR if nonafricn AM) eGFR if africn AM (test code 108 mL/min/1.73 >59 = eGFR if africn AM) Urea nitrogen/Creatinine 17 9-23 [Mass Ratio] in Serum or Plasma (test code = 3097-3) Sodium [Moles/volume] in 144 mmol/L 134-144 Serum or Plasma (test code = 2951-2) Potassium [Moles/volume] in 4.9 mmol/L 3.5-5.2 Serum or Plasma (test code = 2823-3) Chloride [Moles/volume] in 103 mmol/L 96-106 Serum or Plasma (test code = 5-0) Carbon dioxide, total 21 mmol/L 20-29 [Moles/volume] in Serum or Plasma (test code = 2027-9) Calcium [Mass/volume] in 9.7 mg/dL 8.7-10.2 Serum or Plasma (test code = 67055-3) Protein [Mass/volume] in 7.1 g/dL 6.0-8.5 Serum or Plasma (test code = 2885-2) Albumin [Mass/volume] in 4.5 g/dL 3.5-5.5 Serum or Plasma (test code = 1751-7) Globulin [Mass/volume] in 2.6 g/dL 1.5-4.5 Serum by calculation (test code = 08920-7) Albumin/Globulin [Mass Ratio] 1.7 1.2-2.2 in Serum or Plasma (test code = 1759-0) Bilirubin.total [Mass/volume] 0.3 mg/dL 0.0-1.2 in Serum or Plasma (test code = 1975-2) Alkaline phosphatase 93 IU/L 39-117 [Enzymatic activity/volume] in Serum or Plasma (test code = 6768-6) Aspartate aminotransferase 23 IU/L 0-40 [Enzymatic activity/volume] in Serum or Plasma (test code = 1920-8) Alanine aminotransferase 25 IU/L 0-32 [Enzymatic activity/volume] in Serum or Plasma (test code = 1742-6) [facility]Hem[facility].total in [id number] 00:00:00 Test Item Value Reference Range Interpretation Comments Hemoglobin A1c/Hemoglobin.total in 8.4 % 4.8-5.6 H Blood (test code = 4548-4) Glucose mean value [Mass/volume] in 194 mg/dL Blood Estimated from glycated hemoglobin (test code = 79851-4) [facility] [Units/volume] in Serum or [id number] 00:00:00 Test Item Value Reference Range Interpretation Comments Rheumatoid factor [Units/volume] in <10.0 0.0-13.9 Serum or Plasma (test code = 01550-6) [facility]Presence] in Serum 2019-01-27 00:00:00 Test Item Value Reference Range Interpretation Comments Nuclear Ab [Presence] in Serum (test negative negative code = 8061-4) [facility] 2019-01-27 00:00:00 Test Item Value Reference Range Interpretation Comments Erythrocyte sedimentation rate by 17 mm/HR 0-32 Westergren method (test code = 4537-7) [facility] [Mass/volume] in Serum or [id number] 00:00:00 Test Item Value Reference Range Interpretation Comments C reactive protein [Mass/volume] in 3 mg/L 0-10 Serum or Plasma (test code = 1987-) [facility] [id number] 00:00:00 Test Item Value Reference Range Interpretation Comments pdf image (test code = pdf image) . [facility] [id number] 12:50:00 Test Item Value Reference Range Interpretation Comments POC-GLUCOSE METER 303 mg/dL 70-110 H TESTED AT [place] [address] ([facility]) (test code = [facility] 1538) [address] POCT-GLUCOSE [id number] 07:28:00 Test Item Value Reference Range Interpretation Comments POC-GLUCOSE METER 241 mg/dL 70-110 H TESTED AT [place] [address] ([facility]) (test code = [facility] 1538) [address] POCT-GLUCOSE [id number] 00:08:00 Test Item Value Reference Range Interpretation Comments POC-GLUCOSE METER 280 mg/dL 70-110 H TESTED AT [place] [address] ([facility]) (test code = [facility] 1538) [address] POCT-GLUCOSE [id number] 18:41:00 Test Item Value Reference Range Interpretation Comments POC-GLUCOSE METER 221 mg/dL 70-110 H TESTED AT [place] [address] ([facility]) (test code = [facility] 1538) [address] POCT-GLUCOSE [id number] 11:50:00 Test Item Value Reference Range Interpretation Comments POC-GLUCOSE METER 296 mg/dL 70-110 H TESTED AT [place] [address] ([facility]) (test code = [facility] 1538) [address] CBC W/PLT COUNT & AUTO [id number] 08:41:00 Test Item Value Reference Range Interpretation Comments WHITE BLOOD CELL COUNT ([facility]) 7.4 K/ L 3.5-10.5 (test code = 775) RED BLOOD CELL COUNT ([facility]) 4.75 M/ L 3.93-5.22 (test code = 761) HEMOGLOBIN ([facility]) (test code = 15.3 GM/DL 11.2-15.7 410) HEMATOCRIT ([facility]) (test code = 45.8 % 34.1-44.9 H 411) MEAN CORPUSCULAR VOLUME (BEAKER) 96.4 fL 79.4-94.8 H (test code = 753) MEAN CORPUSCULAR HEMOGLOBIN 32.2 pg 25.6-32.2 (BEAKER) (test code = 751) MEAN CORPUSCULAR HEMOGLOBIN CONC 33.4 GM/DL 32.2-35.5 (BEAKER) (test code = 752) RED CELL DISTRIBUTION WIDTH 12.3 % 11.7-14.4 (BEAKER) (test code = 412) PLATELET COUNT (BEAKER) (test 148 K/CU MM 150-450 L code = 756) MEAN PLATELET VOLUME (BEAKER) 10.6 fL 9.4-12.3 (test code = 754) NUCLEATED RED BLOOD CELLS 0 /100 WBC 0-0 (BEAKER) (test code = 413) NEUTROPHILS RELATIVE PERCENT 47 % (BEAKER) (test code = 429) LYMPHOCYTES RELATIVE PERCENT 44 % (BEAKER) (test code = 430) MONOCYTES RELATIVE PERCENT 6 % (BEAKER) (test code = 431) EOSINOPHILS RELATIVE PERCENT 3 % (BEAKER) (test code = 432) BASOPHILS RELATIVE PERCENT 0 % (BEAKER) (test code = 437) NEUTROPHILS ABSOLUTE COUNT 3.44 K/ L 1.56-6.13 (BEAKER) (test code = 670) LYMPHOCYTES ABSOLUTE COUNT 3.25 K/ L 1.18-3.74 (BEAKER) (test code = 414) MONOCYTES ABSOLUTE COUNT (BEAKER) 0.44 K/ L 0.24-0.36 H (test code = 415) EOSINOPHILS ABSOLUTE COUNT 0.22 K/ L 0.04-0.36 (BEAKER) (test code = 416) BASOPHILS ABSOLUTE COUNT (BEAKER) 0.02 K/ L 0.01-0.08 (test code = 417) IMMATURE GRANULOCYTES-RELATIVE 0 % 0-1 PERCENT (BEAKER) (test code = 2801) (MANUAL DIFFERENTIAL)2017-08-04 08:41:00 Test Item Value Reference Range Interpretation Comments TOTAL COUNTED (BEAKER) (test code = 1351) POCT-GLUCOSE [id number] 07:16:00 Test Item Value Reference Range Interpretation Comments POC-GLUCOSE METER 213 mg/dL 70-[address] [facility] [address] (BEAKER) (test code = [facility] 1538) [address] HEPATIC FUNCTION [id number] 06:10:00 Test Item Value Reference Range Interpretation Comments TOTAL PROTEIN (BEAKER) (test code = 7.1 gm/dL 6.0-8.3 770) ALBUMIN (BEAKER) (test code = 1145) 4.2 g/dL 3.5-5.0 BILIRUBIN TOTAL (BEAKER) (test code 0.7 mg/dL 0.2-1.2 = 377) BILIRUBIN DIRECT (BEAKER) (test 0.2 mg/dL 0.1-0.5 code = 706) ALKALINE PHOSPHATASE (BEAKER) (test 73 U/L 40-150 code = 346) AST (SGOT) (BEAKER) (test code = 15 U/L 5-34 353) ALT (SGPT) (BEAKER) (test code = 22 U/L 6-55 347) BASIC METABOLIC [id number] 06:10:00 Test Item Value Reference Range Interpretation Comments SODIUM (BEAKER) 136 meq/L 136-145 (test code = 381) POTASSIUM (BEAKER) 4.4 meq/L 3.5-5.1 (test code = 379) CHLORIDE (BEAKER) 101 meq/L 98-107 (test code = 382) CO2 (BEAKER) (test 26 meq/L 22-29 code = 355) BLOOD UREA NITROGEN 13 mg/dL 7-21 (BEAKER) (test code = 354) CREATININE (BEAKER) 0.79 mg/dL 0.57-1.25 (test code = 358) GLUCOSE RANDOM 256 mg/dL 70-105 H (BEAKER) (test code = 652) CALCIUM (BEAKER) 9.9 mg/dL 8.4-10.2 (test code = 697) EGFR (BEAKER) (test 79 mL/min/1.73 ESTIMA ISABELL GFR IS code = 1092) sq m NOT ACCURATE CREATININE CLEARANCE IN PREDICTING GLOMERULAR FILTRATION RATE . ESTIMATED GFR I S NOT APPLICABLE FOR DIALYSIS PATIEN TS. POCT-GLUCOSE [id number] 23:52:00 Test Item Value Reference Range Interpretation Comments POC-GLUCOSE METER 241 mg/dL 70-[address] [facility] 67[address] (BEAKER) (test code = [facility] 1538) [address] POCT-GLUCOSE [id number] 21:08:00 Test Item Value Reference Range Interpretation Comments POC-GLUCOSE METER 290 mg/dL 70-110 H TESTED AT [place] [address] ([facility]) (test code = [facility] [facility] 1538) [address] POCT-GLUCOSE [id number] 18:05:00 Test Item Value Reference Range Interpretation Comments POC-GLUCOSE METER 271 mg/dL 70-110 H TESTED AT [place] [address] ([facility]) (test code = [place] [facility] 1538) [address] POCT-GLUCOSE [id number] 14:51:00 Test Item Value Reference Range Interpretation Comments POC-GLUCOSE METER 280 mg/dL 70-110 H TESTED AT [place] [address] ([facility]) (test code = [place] [facility] 1538) [address] VITAMIN [id number] 12:52:00 Test Item Value Reference Range Interpretation Comments VITAMIN B12 ([facility]) (test code = 398 pg/mL 213-472 494) FOLATE, [id number] 12:52:00 Test Item Value Reference Range Interpretation Comments FOLATE ([facility]) (test code = 362) 6.5 ng/mL >=7.0 L MR, BRAIN, WITHOUT [id number] 10:20:00FINAL REPORT MRI Brain without contrast Clinical History: Stroke Technique: MRIof the brain utilizing axial T2, FLAIR, GRE, [...] and occipital infarcts without hemorrhage. Signed: Ania Prasad MDReport Verified Date/Time: 08/03/2017 10:20:31 Reading Location: [facility] C0[facility] Neuro Reading Room HEMOGLOBIN [id number] 08:11:00 Test Item Value Reference Range Interpretation Comments HEMOGLOBIN A1C (BEAKER) (test code = 13.4 % 4.3-6.1 H 368) POCT-GLUCOSE [id number] 07:31:00 Test Item Value Reference Range Interpretation Comments POC-GLUCOSE METER 274 mg/dL 70-[address] [facility] 67[address] (BEAKER) (test code = [place] 1538) [address] HEPATIC FUNCTION [id number] 07:15:00 Test Item Value Reference Range Interpretation Comments TOTAL PROTEIN (BEAKER) (test code = 6.4 gm/dL 6.0-8.3 770) ALBUMIN (BEAKER) (test code = 1145) 3.8 g/dL 3.5-5.0 BILIRUBIN TOTAL (BEAKER) (test code 0.5 mg/dL 0.2-1.2 = 377) BILIRUBIN DIRECT (BEAKER) (test 0.2 mg/dL 0.1-0.5 code = 706) ALKALINE PHOSPHATASE (BEAKER) (test 71 U/L 40-150 code = 346) AST (SGOT) (BEAKER) (test code = 10 U/L 5-34 353) ALT (SGPT) (BEAKER) (test code = 18 U/L 6-55 347) BASIC METABOLIC [id number] 07:15:00 Test Item Value Reference Range Interpretation Comments SODIUM (BEAKER) 134 meq/L 136-145 L (test code = 381) POTASSIUM (BEAKER) 4.4 meq/L 3.5-5.1 (test code = 379) CHLORIDE (BEAKER) 101 meq/L 98-107 (test code = 382) CO2 (BEAKER) (test 25 meq/L 22-29 code = 355) BLOOD UREA NITROGEN 13 mg/dL 7-21 (BEAKER) (test code = 354) CREATININE (BEAKER) 0.80 mg/dL 0.57-1.25 (test code = 358) GLUCOSE RANDOM 299 mg/dL 70-105 H (BEAKER) (test code = 652) CALCIUM (BEAKER) 9.5 mg/dL 8.4-10.2 (test code = 697) EGFR (BEAKER) (test 78 mL/min/1.73 ESTIMA ISABELL GFR IS code = 1092) sq m NOT ACCURATE CREATININE CLEARANCE IN PREDICTING GLOMERULAR FILTRATION RATE . ESTIMATED GFR I S NOT APPLICABLE FOR DIALYSIS PATIEN TS. TSH/FREE T4 IF [id number] 07:08:00 Test Item Value Reference Range Interpretation Comments THYROID STIMULATING HORMONE 3.56 uIU/mL 0.35-4.94 (BEAKER) (test code = 772) CBC W/PLT COUNT & AUTO [id number] 06:36:00 Test Item Value Reference Range Interpretation Comments WHITE BLOOD CELL COUNT (BEAKER) 8.6 K/ L 3.5-10.5 (test code = 775) RED BLOOD CELL COUNT (BEAKER) 4.54 M/ L 3.93-5.22 (test code = 761) HEMOGLOBIN (BEAKER) (test code = 14.5 GM/DL 11.2-15.7 410) HEMATOCRIT (BEAKER) (test code = 43.8 % 34.1-44.9 411) MEAN CORPUSCULAR VOLUME (BEAKER) 96.5 fL 79.4-94.8 H (test code = 753) MEAN CORPUSCULAR HEMOGLOBIN 31.9 pg 25.6-32.2 (BEAKER) (test code = 751) MEAN CORPUSCULAR HEMOGLOBIN CONC 33.1 GM/DL 32.2-35.5 (BEAKER) (test code = 752) RED CELL DISTRIBUTION WIDTH 12.5 % 11.7-14.4 (BEAKER) (test code = 412) PLATELET COUNT (BEAKER) (test 139 K/CU MM 150-450 L code = 756) MEAN PLATELET VOLUME (BEAKER) 10.8 fL 9.4-12.3 (test code = 754) NUCLEATED RED BLOOD CELLS 0 /100 WBC 0-0 (BEAKER) (test code = 413) NEUTROPHILS RELATIVE PERCENT 55 % (BEAKER) (test code = 429) LYMPHOCYTES RELATIVE PERCENT 37 % (BEAKER) (test code = 430) MONOCYTES RELATIVE PERCENT 6 % (BEAKER) (test code = 431) EOSINOPHILS RELATIVE PERCENT 2 % (BEAKER) (test code = 432) BASOPHILS RELATIVE PERCENT 0 % (BEAKER) (test code = 437) NEUTROPHILS ABSOLUTE COUNT 4.70 K/ L 1.56-6.13 (BEAKER) (test code = 670) LYMPHOCYTES ABSOLUTE COUNT 3.21 K/ L 1.18-3.74 (BEAKER) (test code = 414) MONOCYTES ABSOLUTE COUNT (BEAKER) 0.48 K/ L 0.24-0.36 H (test code = 415) EOSINOPHILS ABSOLUTE COUNT 0.18 K/ L 0.04-0.36 (BEAKER) (test code = 416) BASOPHILS ABSOLUTE COUNT (BEAKER) 0.03 K/ L 0.01-0.08 (test code = 417) IMMATURE GRANULOCYTES-RELATIVE 0 % 0-1 PERCENT (BEAKER) (test code = 2801) CT, CTANGIO [id number] 02:48:00Addendum BeginsREPORT STATUS:A / Signed: Hammad Blas MDReport Verified Date/Time: 08/03/2017 02:48:07 Reading Location: [address] Ortho Consult Reading RoomAddendum EndsFINAL REPORT CT, CTANGIO BRAIN, CT, CAROTID, ANGIOBRAIN CT WITHOUT CONTRAST INDICATION: "Carotid stenosis, known or suspectedsubacute stroke in watershed distribution" COMPARISON: CT head of the same date TECHNIQUE:Rapid acquisition [...] and posterior fossa within normal limits.There are smallinfarcts within the right parieto-occipital and posterior frontal lobes.No hemorrhagic transformation.No left-sided acute infarcts or infratentorial infarcts.No acute hydrocephalus. The entire calvarium.Large mucous retention cyst in the right maxillary sinus.Symmetric globes. CTA NECK:On the right, there is moderate calcific and noncalcific atherosclerotic disease at the carotid bulb. 50% stenosis of the proximal ICA.On the left, there is moderate calcific and noncalcific atherosclerotic disease ofthe carotid bulb.. 50% stenosis of the proximal [...] structures. IMPRESSION:Small subacute infarcts in the right parieto-occipital and posterior frontal lobes.These are not definitively watershed infarcts and could reflect embolic infarcts.50% stenosis of both proximal ICAs. Signed: Hammad Blas MDReport Verified Date/Time: 08/03/2017 02:37:44 Reading Location: [facility] C013X Ortho Consult Reading Room CT, CAROTID, [id number] 02:48:00Addendum BeginsREPORT STATUS:A / Signed: Hammad Blas MDReport Verified Date/Time: 08/03/2017 02:48:07 Reading Location: [facility] [id number] Ortho Consult Reading RoomAddendum EndsFINAL REPORT CT, CTANGIO BRAIN, CT, CAROTID, ANGIOBRAIN CT WITHOUT CONTRAST INDICATION: "Carotid stenosis, known or suspectedsubacute stroke in watershed distribution" COMPARISON: CT head of the same date TECHNIQUE:Rapid acquisition [...] and posterior fossa within normal limits.There are smallinfarcts within the right parieto- occipital and posterior [...] is moderate calcific and noncalcific atherosclerotic disease ofthe carotid bulb.. 50% stenosis of the proximal [...] structures. IMPRESSION:Small subacute infarcts in the right parieto-occipital and posterior frontal lobes.These are not definitively watershed infarcts and could reflect embolic infarcts.50% stenosis of both proximal ICAs. Signed: Hammad Blas MDReport Verified Date/Time: 08/03/2017 02:37:44 Reading Location: [facility] C0X Ortho Consult Reading Room POCT-GLUCOSE [id number] 21:29:00 Test Item Value Reference Range Interpretation Comments POC-GLUCOSE METER 329 mg/dL 70-[address] [facility] 67[address] ([facility]) (test code = [place] 1538) [address] HEPATIC FUNCTION [id number] 21:01:00 Test Item Value Reference Range Interpretation Comments TOTAL PROTEIN (AKER) 6.8 gm/dL 6.0-8.3 Speci men slightly (test code = 770) hemolyzed ALBUMIN ([facility]) (test 3.9 g/dL 3.5-5.0 Speci men slightly code = 1145) hemolyzed BILIRUBIN TOTAL 0.3 mg/dL 0.2-1.2 Specimen sli ghtly ([facility]) (test code = hemoly zed 377) BILIRUBIN DIRECT 0.1 mg/dL 0.1-0.5 Specimen sl ightly ([facility]) (test code = hemoly zed 706) ALKALINE PHOSPHATASE 84 U/L 40-150 ([facility]) (test code = 346) AST (SGOT) (BEAKER) 14 U/L 5-34 Specimen slightly (test code = 353) hemolyzed ALT (SGPT) (BEAKER) 21 U/L 6-55 Specimen slightly (test code = 347) hemolyzed BASIC METABOLIC [id number] 21:01:00 Test Item Value Reference Range Interpretation Comments SODIUM (BEAKER) 139 meq/L 136-145 (test code = 381) POTASSIUM (BEAKER) 4.8 meq/L 3.5-5.1 Specimen slightly (test code = 379) hemolyzed CHLORIDE (BEAKER) 103 meq/L 98-107 (test code = 382) CO2 (BEAKER) (test 27 meq/L 22-29 code = 355) BLOOD UREA NITROGEN 13 mg/dL 7-21 (BEAKER) (test code = 354) CREATININE (BEAKER) 0.86 mg/dL 0.57-1.25 Specimen slightly (test code = 358) hemolyzed GLUCOSE RANDOM 243 mg/dL 70-105 H (BEAKER) (test code = 652) CALCIUM (BEAKER) 9.5 mg/dL 8.4-10.2 (test code = 697) EGFR (BEAKER) (test 71 mL/min/1.73 ESTIMA ISABELL GFR IS code = 1092) sq m NOT ACCURATE CREATININE CLEARANCE IN PREDICTING GLOMERULAR FILTRATION RATE . ESTIMATED GFR I S NOT APPLICABLE FOR DIALYSIS PATIEN TS. LIPID [id number] 21:01:00 Test Item Value Reference Range Interpretation Comments TRIGLYCERIDES (BEAKER) 488 mg/dL Speci men slightly (test code = 540) hemolyzed CHOLESTEROL (BEAKER) 176 mg/dL Specime n slightly (test code = 631) hemolyzed HDL CHOLESTEROL (BEAKER) 32 mg/dL (test code = 976) Calculated LDL not valid if triglyceride >400 mg/dLTriglyceride Reference Range: Low Risk <150Borderline 150-199 High Risk 200-499 Very High Risk >=500Cholesterol Reference Range: Low Risk <200 Borderline 200-239 High Risk >240HDL Cholesterol Reference Range: Low Risk >=60 High Risk<40LDL Cholesterol Reference Range: Optimal <100 Near Optimal 100-129 Borderline 130-159 Vroh037-096 Very High >=190CBC W/PLT COUNT & AUTO DIFFERENTIAL 2017-08-02 20:44:00 Test Item Value Reference Range Interpretation Comments WHITE BLOOD CELL COUNT (BEAKER) 8.3 K/ L 3.5-10.5 (test code = 775) RED BLOOD CELL COUNT (BEAKER) 4.58 M/ L 3.93-5.22 (test code = 761) HEMOGLOBIN (BEAKER) (test code = 14.7 GM/DL 11.2-15.7 410) HEMATOCRIT (BEAKER) (test code = 44.6 % 34.1-44.9 411) MEAN CORPUSCULAR VOLUME (BEAKER) 97.4 fL 79.4-94.8 H (test code = 753) MEAN CORPUSCULAR HEMOGLOBIN 32.1 pg 25.6-32.2 (BEAKER) (test code = 751) MEAN CORPUSCULAR HEMOGLOBIN CONC 33.0 GM/DL 32.2-35.5 (BEAKER) (test code = 752) RED CELL DISTRIBUTION WIDTH 12.4 % 11.7-14.4 (BEAKER) (test code = 412) PLATELET COUNT (BEAKER) (test 109 K/CU MM 150-450 L code = 756) MEAN PLATELET VOLUME (BEAKER) 10.8 fL 9.4-12.3 (test code = 754) NUCLEATED RED BLOOD CELLS 0 /100 WBC 0-0 (BEAKER) (test code = 413) NEUTROPHILS RELATIVE PERCENT 55 % (BEAKER) (test code = 429) LYMPHOCYTES RELATIVE PERCENT 37 % (BEAKER) (test code = 430) MONOCYTES RELATIVE PERCENT 6 % (BEAKER) (test code = 431) EOSINOPHILS RELATIVE PERCENT 2 % (BEAKER) (test code = 432) BASOPHILS RELATIVE PERCENT 0 % (BEAKER) (test code = 437) NEUTROPHILS ABSOLUTE COUNT 4.51 K/ L 1.56-6.13 (BEAKER) (test code = 670) LYMPHOCYTES ABSOLUTE COUNT 3.03 K/ L 1.18-3.74 (BEAKER) (test code = 414) MONOCYTES ABSOLUTE COUNT (BEAKER) 0.52 K/ L 0.24-0.36 H (test code = 415) EOSINOPHILS ABSOLUTE COUNT 0.14 K/ L 0.04-0.36 (BEAKER) (test code = 416) BASOPHILS ABSOLUTE COUNT (BEAKER) 0.03 K/ L 0.01-0.08 (test code = 417) IMMATURE GRANULOCYTES-RELATIVE 0 % 0-1 PERCENT (AKER) (test code = 2801)
[2022-12-18] MEDS ORDERED: TRAMADOL HCL 50 MG TAB ONE ×2 (13:33→13:42)
--- NOTE | 2022-12-18 14:24 | RAD REPORT ---
EXAM DESCRIPTION: RAD - Knee Left 3 View - 12/18/2022 1:23 pm CLINICAL HISTORY: PAIN COMPARISON: No comparisons TECHNIQUE: Left knee, 3 views. FINDINGS: No fracture, dislocation or periosteal reaction.Mild joint effusion seen. Mild medial weig ht-bearing and patellofemoral degenerative changes with marginal spurring. Vascular calcifications. S mall ossific density adjacent to the proximal tip of the fibula. And another smaller density along th e anterior margin of the tibial plateaus. Clinical concerns for internal derangement or occult bony injury could be further assessed with MR im aging. IMPRESSION: No acute osseous abnormality. Mild joint effusion. Mild degenerative changes as above.
--- NOTE | 2022-12-18 14:45 | ER ---
Nurse's Notes [facility] Name: Yessica Martinez Age: 52 yrs Sex: Female : 1970 Arrival Date: 12/18/2022 Time: 11:39 Bed 11 Private MD: Diagnosis: Pain in left knee;Pain in right knee Presentation: 12/18 12:01 Chief complaint: Patient states: L knee pain for 3 days after getting bumped by her ll1 dog. Stares R knee always has a bump and pain for years. Coronavirus screen: Vaccine status: Patient reports being unvaccinated. Client denies travel out of the [place] in the last 14 days. At this time, the client does not indicate any symptoms associated with coronavirus-19. Ebola Screen: Patient denies travel to an Ebola-affected area in the 21 days before illness onset. Initial Sepsis Screen: Does the patient meet any 2 criteria? No. Patient's initial sepsis screen is negative. Does the patient have a suspected source of infection? Yes: Bone or joint infection. Risk Assessment: Do you want to hurt yourself or someone else? Patient reports no desire to harm self or others. Onset of symptoms was December 16, 2022. 12:01 Method Of Arrival: Ambulatory ll1 12:01 Acuity: BECCA 4 ll1 PHOTO TECHNICIAN: 13:29 LMP N/A - mb9 Historical: - Allergies: 12:04 Ibuprofen; ll1 - PMHx: 12:04 Diabetes - NIDDM; High Cholesterol; CVA; ll1 - PSHx: 12:04 section; ll1 - Immunization history:: Client reports receiving the 2nd dose of the Covid vaccine. - Social history:: Smoking status: Patient reports the use of cigarette tobacco products, smokes one pack cigarettes per day. Screenin:29 [facility] ED Fall Risk Assessment (Adult) History of falling in the last 3 months, mb9 including since admission No falls in past 3 months (0 pts) Confusion or Disorientation No (0 pts) Intoxicated or Sedated No (0 pts) Impaired Gait No (0 pts) Mobility Assist Device Used No (0 pt) Altered Elimination No (0 pt) Score/Fall Risk Level 0 - 2 = Low Risk Oriented to surroundings, Maintained a safe environment, Educated pt \T\ family on fall prevention, incl call for assistance when getting out of bed. Abuse screen: Denies threats or abuse. Nutritional screening: No deficits noted. Tuberculosis screening: No symptoms or risk factors identified. Assessment: 13:28 General: Appears in no apparent distress. Behavior is calm, cooperative, appropriate mb9 for age. Pain: Complains of pain in left knee Pain does not radiate. Quality of pain is described as throbbing, Pain began 2-3 days ago. Is intermittent, Aggravated by increased activity. Neuro: Richardson Agitation-Sedation Scale (RASS): 0 - Alert and Calm Level of Consciousness is awake, alert, obeys commands, Oriented to person, place, time, situation, Appropriate for age. Cardiovascular: Patient's skin is warm and dry. Respiratory: Airway is patent Respiratory effort is even, unlabored, Respiratory pattern is regular, symmetrical. GI: No signs and/or symptoms were reported involving the gastrointestinal system. : No signs and/or symptoms were reported regarding the genitourinary system. EENT: No signs and/or symptoms were reported regarding the EENT system. Derm: Skin is pink, warm \T\ dry. Musculoskeletal: Range of motion: intact in all extremities. 14:59 Reassessment: No changes from previously documented assessment. Patient and/or family mb9 updated on plan of care and expected duration. Pain level reassessed. Patient is alert, oriented x 3, equal unlabored respirations, skin warm/dry/pink. Vital Signs: 12:01 BP 133 / 92; Pulse 74; Resp 16; Temp 98.1; Pulse Ox 97% on R/A; Weight 90.72 kg; Height ll1 5 ft. 3 in. ; Pain 6/10; 14:59 BP 128 / 84; Pulse 84; Resp 16; Pulse Ox 98% on R/A; mb9 12:01 Body Mass Index 35.43 (90.72 kg, 160.02 cm) ll1 12:01 Pain Scale: Adult ll1 ED Course: 11:41 Patient arrived in ED. rg4 11:42 David Fairchild DO is Attending Physician. ms3 12:04 Triage completed. ll1 12:05 Arm band placed on. ll1 13:16 Knee Left 3 View XRAY In Process Unspecified. EDMS 13:20 Patient placed in an exam room, on a stretcher. ll1 13:28 Vicki Antunez, RN is Primary Nurse. mb9 13:29 Bed in low position. Call light in reach. Side rails up X 1. Client placed on mb9 continuous cardiac and pulse oximetry monitoring. NIBP monitoring applied. 13:29 No provider procedures requiring assistance completed. Patient did not have IV access mb9 during this emergency room visit. 14:44 Preston Qureshi MD is Referral Physician. ms3 Administered Medications: 13:32 Drug: traMADol PO 50 mg Route: PO; mb9 14:20 Follow up: Response: No adverse reaction mb9 Medication: 13:29 VIS not applicable for this client. mb9 Outcome: 14:44 Discharge ordered by . ms3 14:59 Discharged to home ambulatory. mb9 14:59 Condition: stable 14:59 Discharge instructions given to patient, Instructed on discharge instructions, follow up and referral plans. Demonstrated understanding of instructions, follow-up care. 15:00 Patient left the ED. mb9 Signatures: Dispatcher [employer] EDMS Elaine Veras rg4 Jarrett Xiao RN RN ll1 David Fairchild DO DO ms3 Vicki Antunez, RN RN mb9 Corrections: (The following items were deleted from the chart) 12:04 12:04 Allergies: No Known Allergies; ll1 ll1
--- NOTE | 2022-12-18 14:45 | EDPHYS ---
Physician Documentation [facility] Name: Yessica Martinez Age: 52 yrs Sex: Female : 1970 Arrival Date: 12/18/2022 Time: 11:39 Bed 11 Private MD: ED Physician David Fairchild HPI: 12/18 14:44 This 52 yrs old Female presents to ER via Ambulatory with complaints of Knee Pain. ms3 14:44 52-year-old female with past medical history of diabetes, hyperlipidemia, CVA presents ms3 for right knee pain that has been ongoing for long time. Patient states her left knee began hurting and swelling 2 days ago after her dog vomited. Patient states pain is a 6/10 and described as throbbing. Patient states she has taken Tylenol with some relief. Patient denies inciting factors. Patient denies fevers, chills, nausea, vomiting.. BENDER HAND: 13:29 LMP N/A - mb9 Historical: - Allergies: 12:04 Ibuprofen; ll1 - PMHx: 12:04 Diabetes - NIDDM; High Cholesterol; CVA; ll1 - PSHx: 12:04 section; ll1 - Immunization history:: Client reports receiving the 2nd dose of the Covid vaccine. - Social history:: Smoking status: Patient reports the use of cigarette tobacco products, smokes one pack cigarettes per day. ROS: 14:44 Constitutional: Negative for fever, and chills. Cardiovascular: Negative for chest ms3 pain, and palpitations. Respiratory: Negative for shortness of breath, cough, wheezing, and pleuritic chest pain, Abdomen/GI: Negative for abdominal pain, nausea, vomiting, diarrhea, and constipation. 14:44 MS/extremity: Positive for pain, of the Bilateral knees. 14:44 All other systems are negative. ms3 Exam: 14:44 Constitutional: This is a well developed, well nourished patient who is awake, alert, ms3 and in no acute distress. Eyes: Pupils equal round and reactive to light, extra-ocular motions intact. Lids and lashes normal. Conjunctiva and sclera are non-icteric and not injected. Periorbital areas with no swelling, redness, or edema. Neck: Trachea midline, no cervical lymphadenopathy. Supple, full range of motion without nuchal rigidity, or vertebral point tenderness. No Meningismus. Chest/axilla: Normal chest wall appearance and motion. Nontender with no deformity. Cardiovascular: Regular rate and rhythm with a normal S1 and S2. No gallops, murmurs, or rubs. Normal PMI, no JVD. No pulse deficits. Respiratory: Lungs have equal breath sounds bilaterally, clear to auscultation and percussion. No rales, rhonchi or wheezes noted. No increased work of breathing, no retractions or nasal flaring. Abdomen/GI: Soft, non-tender, with normal bowel sounds. No distension or tympany. No guarding or rebound. No evidence of tenderness throughout. 14:44 Musculoskeletal/extremity: Extremities: noted in the Left knee: pain, swelling, There is no evidence of ecchymosis, erythema. Vital Signs: 12:01 BP 133 / 92; Pulse 74; Resp 16; Temp 98.1; Pulse Ox 97% on R/A; Weight 90.72 kg; Height ll1 5 ft. 3 in. ; Pain 6/10; 14:59 BP 128 / 84; Pulse 84; Resp 16; Pulse Ox 98% on R/A; mb9 12:01 Body Mass Index 35.43 (90.72 kg, 160.02 cm) ll1 12:01 Pain Scale: Adult ll1 MDM: 12:26 Patient medically screened. ms3 14:44 Differential diagnosis: contusion, Ligament injury vs OA. Data reviewed: vital signs, ms3 nurses notes, radiologic studies, plain films. I considered the following discharge prescriptions or medication management in the emergency department Medications were administered in the Emergency Department. See MAR. Counseling: I had a detailed discussion with the patient and/or guardian regarding the historical points, exam findings, and any diagnostic results supporting the discharge/admit diagnosis, radiology results, the need for outpatient follow up, to return to the emergency department if symptoms worsen or persist or if there are any questions or concerns that arise at home, smoking cessation. Response to treatment: the patient's symptoms have mildly improved after treatment, and as a result, I will discharge patient. Special discussion: I discussed with the patient/guardian in detail that at this point there is no indication for admission to the hospital. It is understood, however, that if the symptoms persist or worsen the patient needs to return immediately for re-evaluation. ED course: Discussed imaging with patient. Patient to follow-up with orthopedics in 2 to 3 days. Patient understands and agrees with plan. Patient ambulatory in the emergency department, alert, in no apparent distress, nontoxic-appearing. Return precautions discussed include fevers, chills, worsening symptoms, or any other concerns. 12/18 12:26 Order name: Knee Left 3 View XRAY; Complete Time: 14:25 ms3 Administered Medications: 13:32 Drug: traMADol PO 50 mg Route: PO; mb9 14:20 Follow up: Response: No adverse reaction mb9 Disposition Summary: 12/18/22 14:44 Discharge Ordered Location: Home ms3 Condition: Stable ms3 Diagnosis - Pain in left knee ms3 - Pain in right knee ms3 Followup: ms3 - With: Preston Qureshi MD - When: 2 - 3 days - Reason: Recheck today's complaints Discharge Instructions: - Discharge Summary Sheet ms3 - Acute Knee Pain, Adult ms3 Forms: - Medication Reconciliation Form ms3 - Thank You Letter ms3 - Antibiotic Education ms3 - Prescription Opioid Use ms3 - Patient Portal Instructions ms3 - Leadership Thank You Letter ms3 Signatures: Dispatcher [employer] EDJarrett Fountain RN RN ll1 David Fairchild DO DO ms3 Vicki Antunez RN RN mb9 Corrections: (The following items were deleted from the chart) 12:04 12:04 Allergies: No Known Allergies; ll1 ll1
[2022-12-18 15:45] VITALS: BP 128/84; O2SAT 98
[2022-12-18 15:46] VITALS: TEMP 98.1
== END 2022-12-18 15:00 | disposition home or self-care (01) ==
LOC: ER 11:39
DX: M25.562 Pain in left knee (principal); M25.561 Pain in right knee
CPT/HCPCS: 99283